=== PATIENT | male | born 1985 | race Caucasian/White ===

== ENCOUNTER 2019-02-09 19:47 | Emergency (ER) | payer SELFPAY ==
[~2019-02-09] VITALS: Ht 185.4 cm; Wt 170.1 kg
--- OUTSIDE RECORDS SUMMARY | 2019-02-09 19:59 | XMS REPORT ---
Author Author FARIHA BEJARANO [facility] Address [address] [place] [address] Care Team Providers Care Train Driver Name Role Phone FARHIA BEJARANO Unavailable PROBLEMS Unknown Problems ALLERGIES No Information SOCIAL HISTORY Never Assessed PLAN OF CARE VITAL SIGNS MEDICATIONS Medication Instructions Dosage Frequency Start Date End Date Duration Status Magic Mouthwash Apply medicated swab to sore areas of the mouth to numb the pain As needed Dip cotton swab into medication February, As needed Active RESULTS No Results PROCEDURES No Known procedures IMMUNIZATIONS No Known Immunizations MEDICAL (GENERAL) HISTORY Type Description Date Surgical History tonsillectomy and adnoids Hospitalization History Previous surgeries
--- OUTSIDE RECORDS SUMMARY | 2019-02-09 20:00 | XMS REPORT ---
Author [facility] Address [address] [place] [address] Care Team Providers Care Mohs Surgeon/General Dermatologist Name Role Phone FARIHA BEJARANO Unavailable PROBLEMS Unknown Problems ALLERGIES No Information SOCIAL HISTORY Never Assessed PLAN OF CARE VITAL SIGNS MEDICATIONS Unknown Medications RESULTS No Results PROCEDURES No Known procedures IMMUNIZATIONS No Known Immunizations MEDICAL (GENERAL) HISTORY Type Description Date Surgical History tonsillectomy and adnoids Hospitalization History Previous surgeries
--- NOTE | 2019-02-09 20:31 | Diagnostic Imaging Report ---
Examination: Right ankle, 3 views Indication: Right ankle pain after ankle injury. Comparison: None. Findings: No fracture or acute osseous abnormality. Bony alignment is maintained. Intact ankle mortise, including the medial and lateral clear space. No osteochondral lesion of the talar dome. No significant arthritic change. There is soft tissue swelling in the lateral ankle. Impression: No acute fracture or dislocation. Dictated by: Dictated on workstation # [id number]
--- NOTE | 2019-02-09 21:04 | ED Lower Extremity ---
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 He heard and felt a pop in his right ankle with the injury. He had immediate swelling and pain. He has not been able to walk on his right foot since the injury. He has had increasing pain and swelling since the injury. 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 He did not hit his head or lose consciousness. He denies any other injuries. He did not take anything for the pain prior to coming to the ED. He has not injured that ankle before. Allergies and Home Medications Allergies Coded Allergies: No Known Drug Allergies (Unverified , 02/09/19) Patient Home Medication List Home Medication List Reviewed: Yes Review of Systems Constitutional: no symptoms reported EENTM: no symptoms reported Respiratory: no symptoms reported Cardiovascular: no symptoms reported Gastrointestinal: no symptoms reported Genitourinary: no symptoms reported Musculoskeletal: see HPI Skin: see HPI Past Egzbnom-Lcbhox-Ljvzar Hx Past Med/Social Hx: Reviewed Nursing Past Med/Soc Hx Patient Social History Alcohol Use: Rarely Uses Recreational Drug Use: Yes Smoking Status: Current Everyday Smoker Type Used: Cigarettes 2nd Hand Smoke Exposure: No Recent Foreign Travel: No Contact w/Someone Who Travel: No Recent Infectious Disease Expo: No Recent Hopitalizations: No Physical Abuse: No Sexual Abuse: No Mistreated: No Fear: No Seasonal Allergies Seasonal Allergies: No Past Medical History Surgeries: Yes Tonsillectomy Respiratory: No Cardiac: No Neurological: No Genitourinary: No Gastrointestinal: No Musculoskeletal: No Endocrine: No HEENT: No Cancer: No Psychosocial: No Integumentary: No Blood Disorders: No Physical Exam Vital Signs Vital Signs - First Documented 02/09/19 02/09/19 20:11 21:29 Temp 99.6 Pulse 101 Resp 22 B/P (MAP) 101/ Pulse Ox 98 O2 Delivery Room Air O2 Flow Rate 210.00 Capillary Refill : Less Than 3 Seconds Height, Weight, BMI Height: 6'1.00" Weight: 375lbs. oz. 170.620736ah; BMI Method:Stated General Appearance: WD/WN, obese Cardiovascular: normal peripheral pulses, regular rate, rhythm Knees: right knee non-tender, right knee normal inspection, right knee normal range of motion, right knee no evidence of injury Ankles: right ankle limited range of motion, right ankle pain, right ankle soft tissue tenderness, right ankle swelling Neurologic/Tendon: normal sensation, normal motor functions, normal tendon functions Neurologic/Psychiatric: reimbursement spec II-XII nml as tested, no motor/sensory deficits, alert, oriented x 3 Skin: warm/dry, ecchymosis (swelling and bruising to right ankle and foot) Progress/Results/Core Measures Results/Orders My Orders Orders - NASIM MILLER MD Ankle 3 View Right (02/09/19 20:10) Ketorolac Injection (Toradol Injection) (02/09/19 21:15) Orthopedic Equiment (02/09/19 21:04) Medications Given in ED Current Medications Medications Dose Ordered Sig/Erika Route Start Time Stop Time Status Last Admin Dose Admin Ketorolac Tromethamine 60 mg ONCE ONCE IM 02/09/19 21:15 02/09/19 21:16 DC 02/09/19 21:11 60 MG Vital Signs/I&O 02/09/19 02/09/19 20:11 21:29 Temp 99.6 Pulse 101 90 Resp 22 20 B/P (MAP) 101/ 166/124 (138) Pulse Ox 98 O2 Delivery Room Air Room Air O2 Flow Rate 210.00 Progress Progress Note : Progress Note xray of right ankle does not show any acute fracture but has soft tissue swelling. Treat symptomatically and follow up with clinic. Pt refused pain medicine but was willing to take Toradol shot. He exceeded weight limit for crutches that were available here in the department so prescription was sent with pt. Diagnostic Imaging Diagonstic Imaging: Xray Plain Films/CT/US/NM/MRI: ankle Comments NAME: SAUMYA VALENTINE MED REC#: [id number] PT STATUS: DEP ER : 1985 PHYSICIAN: NASIM MILLER MD ADMIT DATE: 02/09/19/ER FS Signed Date of Exam:02/09/19 ANKLE 3 VIEW RIGHT Examination: Right ankle, 3 views Indication: Right ankle pain after ankle injury. Comparison: None. Findings: No fracture or acute osseous abnormality. Bony alignment is maintained. Intact ankle mortise, including the medial and lateral clear space. No osteochondral lesion of the talar dome. No significant arthritic change. There is soft tissue swelling in the lateral ankle. Impression: No acute fracture or dislocation. Dictated by: Dictated on workstation # [id number] Dict: 02/09/192028 Trans: 02/09/192356 [facility] [id number] Interpreted by: DAMIR FLORES DO Electronically signed by: DAMIR FLORES DO 02/09/197 Reviewed: Reviewed by Me (and radiology reading) Departure Impression Primary Impression: Pain in lateral portion of right ankle Additional Impression: Sprain of right ankle Qualified Codes: S93.401A - Sprain of unspecified ligament of right ankle, initial encounter Disposition: HOME, SELF-CARE Condition: Stable Departure-Patient Inst. Decision time for Depature: 21:16 Referrals: NO,LOCAL PHYSICIAN (PCP) Primary Care Physician Patient Instructions: Ankle Sprain (DC) Add. Discharge Instructions: Use carlota bandage and splint to give support and compression to your ankle. Ice and elevate to help with swelling and pain Take the Ibuprofen 800 mg every 8 hours to help with pain that you said you have at home. Use crutches to help with weight bearing as you tolerate. If not improving then follow up with clinic for recheck and you may need to see Orthopedics. All discharge instructions reviewed with patient and/or family. Voiced understanding. Scripts Crutch (Crutch) 1 Each Each EACH MC DAILY for ankle sprain, #1 0 Refills Use crutches for weight bearing as tolerated Prov: NASIM MILLER MD 02/09/19 NASIM MILLER MD Feb 09, 2019 21:04
[2019-02-09] MEDS ORDERED: KETOROLAC 60 MG/2 ML VIAL IM ONE (21:15)
[2019-02-09] MEDS ORDERED: CRUT1EAC7 MC (21:20)
[2019-02-09 21:29] VITALS: BP 166/124
== END 2019-02-09 21:25 | disposition home or self-care (01) ==
LOC: ER FS 19:48
DX: S93.401A Sprain of unspecified ligament of right ankle, initial encounter (principal); F17.210 Nicotine dependence, cigarettes, uncomplicated; Z90.89 Acquired absence of other organs; W10.8XXA Fall (on) (from) other stairs and steps, initial encounter; X50.1XXA Overexertion from prolonged static or awkward postures, initial encounter
CPT/HCPCS: 73610; 96372

== ENCOUNTER 2019-10-03 05:33 | Emergency (ER) | payer SELFPAY ==
[~2019-10-03] VITALS: Ht 182 cm; Wt 187.0 kg
[~2019-10-03 05:33] MED LIST: CRUT1EAC7 MC
[2019-10-03] MEDS ORDERED: ASPIRIN 81 MG CHEW (CHILDREN'S ASA) PO ONE (05:45)
[2019-10-03] MEDS ORDERED: FAMOTIDINE 20 MG (PEPCID) TABLET PO STA (05:58)
[2019-10-03] MEDS ORDERED: ANTACID SUSP 30 ML UDC (MYLANTA) PO ONE (06:00)
[2019-10-03] MEDS ORDERED: LIDOCAINE 2% VISCOUS 15 ML UDC PO ONE (06:00)
--- NOTE | 2019-10-03 06:10 | ED Chest Pain ---
General Stated Complaint: CHEST ARM PAIN Source: patient Exam Limitations: no limitations History of Present Illness Date Seen by Provider: Oct 03, 2019 Time Seen by Provider: 05:44 Initial Comments Patient presents to ER by private conveyance with chief complaint of left chest pain radiating up into his left shoulder and upper arm. He rates it as about a 4 -5 out of 10 at its worst. He says the pain comes and goes. It first started several years ago but he's never had it worked up. He states that this episode started around 1999 last night. He's been trying to get some sleep but it has kept him up. It is worse when he lays down as deep inspiration coughing or movement. It is better when he dropped a palpates it. He has not been doing anything strenuous lately. He has not taken anything for the pain. No history of coronary disease coughing levers but he doesn't miss some chills. No history of asthma, COPD or wheezing. He does not feel short of breath nauseated or have any sweats. No early-onset coronary disease in his family. He denies following up with a doctor or having any known medical history. He smokes cigarettes and marijuana regularly. Allergies and Home Medications Allergies Coded Allergies: No Known Drug Allergies (Unverified , 02/09/19) Patient Home Medication List Home Medication List Reviewed: Yes Review of Systems Review of Systems Constitutional: No chills, No diaphoresis EENTM: No Blurred Vision, No Double Vision Respiratory: Denies Cough, Denies Shortness of Air Cardiovascular: See HPI, Chest Pain; Denies Edema, Denies Irregular Heart Rate Musculoskeletal: No back pain, No joint pain Skin: No change in color, No dryness Psychiatric/Neurological: Denies Headache, Denies Numbness, Denies Paresthesia Past Xzbskim-Qsyozi-Xfjucc Hx Patient Social History Alcohol Use: Denies Use Recreational Drug Use: Yes Drug of Choice: MJ Smoking Status: Current Everyday Smoker Type Used: Cigarettes 2nd Hand Smoke Exposure: No Recent Foreign Travel: No Contact w/Someone Who Travel: No Recent Hopitalizations: No Seasonal Allergies Seasonal Allergies: No Past Medical History Surgeries: Yes Tonsillectomy Respiratory: No Cardiac: No Neurological: No Genitourinary: No Gastrointestinal: No Musculoskeletal: No Endocrine: No HEENT: No Cancer: No Psychosocial: No Integumentary: No Blood Disorders: No Physical Exam Vital Signs Vital Signs - First Documented 10/03/19 05:35 Temp 36.4 Pulse 87 Resp 18 B/P (MAP) 154/110 (125) Pulse Ox 97 O2 Delivery Room Air Capillary Refill : Height, Weight, BMI Height: 6'1.00" Weight: 375lbs. oz. 170.368833gy; BMI Method:Stated General Appearance: No Apparent Distress, Obese (morbidly) HEENT: PERRL/EOMI, Pharynx Normal, Moist Mucous Membranes Neck: Full Range of Motion, Normal Inspection Respiratory: No Accessory Muscle Use, No Respiratory Distress, Expiration, Wheezing (slight) Cardiovascular: Regular Rate, Rhythm, No Edema, No Gallop, No JVD, No Murmur, Normal Peripheral Pulses Extremity: Normal Capillary Refill, Normal Inspection, Normal Range of Motion, Non Tender, No Calf Tenderness Neurologic/Psychiatric: Alert, Oriented x3, No Motor/Sensory Deficits Skin: Normal Color, Warm/Dry Progress/Results/Core Measures Results/Orders Lab Results Laboratory Tests Test 10/03/19 06:17 Range/Units White Blood Count 12.3 H 4.3-11.0 10^3/uL Red Blood Count 5.65 4.35-5.85 10^6/uL Hemoglobin 17.2 13.3-17.7 G/DL Hematocrit 51 40-54 % Mean Corpuscular Volume 91 80-99 FL Mean Corpuscular Hemoglobin 30 25-34 PG Mean Corpuscular Hemoglobin Concent 34 32-36 G/DL Red Cell Distribution Width 12.9 10.0-14.5 % Platelet Count 183 130-400 10^3/uL Mean Platelet Volume 11.2 H 7.4-10.4 FL Neutrophils (%) (Auto) 41 L 42-75 % Lymphocytes (%) (Auto) 24 12-44 % Monocytes (%) (Auto) 5 0-12 % Eosinophils (%) (Auto) 30 H 0-10 % Basophils (%) (Auto) 1 0-10 % Neutrophils # (Auto) 5.0 1.8-7.8 X 10^3 Lymphocytes # (Auto) 2.9 1.0-4.0 X 10^3 Monocytes # (Auto) 0.6 0.0-1.0 X 10^3 Eosinophils # (Auto) 3.7 H 0.0-0.3 10^3/uL Basophils # (Auto) 0.1 0.0-0.1 10^3/uL Neutrophils % (Manual) 44 % Lymphocytes % (Manual) 12 % Eosinophils % (Manual) 37 % Reactive Lymphocytes 7 % Microcytosis SLIGHT Sodium Level 136 135-145 MMOL/L Potassium Level 4.0 3.6-5.0 MMOL/L Chloride Level 102 98-107 MMOL/L Carbon Dioxide Level 22 21-32 MMOL/L Anion Gap 12 5-14 MMOL/L Blood Urea Nitrogen 15 7-18 MG/DL Creatinine 0.82 0.60-1.30 MG/DL Estimat Glomerular Filtration Rate > 60 BUN/Creatinine Ratio 18 Glucose Level 117 H 70-105 MG/DL Calcium Level 9.2 8.5-10.1 MG/DL Corrected Calcium 9.0 8.5-10.1 MG/DL Total Bilirubin 0.5 0.1-1.0 MG/DL Aspartate Amino Transf (AST/SGOT) 18 5-34 U/L Alanine Aminotransferase (ALT/SGPT) 33 0-55 U/L Alkaline Phosphatase 64 40-136 U/L Troponin I < 0.30 <0.30 NG/ML Total Protein 6.9 6.4-8.2 GM/DL Albumin 4.2 3.2-4.5 GM/DL My Orders Orders - GIANCARLO WOLFE Lidocaine 2% Viscous 15 Ml (Xylocaine Vi (10/03/19 06:00) Famotidine Tablet (Pepcid Tablet) (10/03/19 05:58) Antacid Suspension (Mylanta Suspension (10/03/19 06:00) Albuterol Pre-Mix Nebs (Rt) (Proventil (10/03/19 06:38) Svn Small Volume Nebulizer (10/03/19 06:38) Medications Given in ED Current Medications Medications Dose Ordered Sig/Erika Route Start Time Stop Time Status Last Admin Dose Admin Al Hydrox/Mg Hydrox/Simethicone 30 ml ONCE ONCE PO 10/03/19 06:00 10/03/19 06:01 DC 10/03/19 06:16 30 ML Aspirin 324 mg ONCE ONCE PO 10/03/19 05:45 10/03/19 05:46 DC 10/03/19 06:15 324 MG Lidocaine HCl 15 ml ONCE ONCE PO 10/03/19 06:00 10/03/19 06:01 DC 10/03/19 06:16 15 ML Vital Signs/I&O 10/03/19 05:35 Temp 36.4 Pulse 87 Resp 18 B/P (MAP) 154/110 (125) Pulse Ox 97 O2 Delivery Room Air Progress Progress Note #1: Time: 06:12 Progress Note Assume care of the patient. Labs and EKG were ordered. Nursing staff had difficult time establishing an IV. At this time are not going to be using nitroglycerin and we will dispense with an IV. Plan is to give her a GI cocktail and if that does not help we'll try IM Toradol for what appears to be chronic, intermittent pain in his chest improved with direct palpation making it more likely musculoskeletal. Less likely myocarditis pericarditis or pulmonary. He has no wheezing, shortness of breath or cough however he does smoke. We could trial and albuterol nebulizer. He has no evidence of dysrhythmia on the monitor. If his labs look okay we will highly recommend he follow up with primary care for further management of his chronic problems. Counseled careful weight loss and exercise. Progress Note #2: Time: 06:38 Progress Note GI cocktail made no difference in his symptoms. He still has mild 2-3 out of 10 pain so since he has some wheezing we'll try albuterol. Progress Note #3: Time: 06:58 Progress Note Albuterol made his wheezing go away however did nothing for his discomfort. We'll give him some Toradol and instructions for management of costochondritis as well as follow-up with primary care doctor. Initial ECG Impression Date: Oct 03, 2019 Initial ECG Impression Time: 05:42 Initial ECG Rate: 94 Initial ECG Rhythm: Normal Sinus Initial ECG Intervals: Normal Initial ECG Impression: Normal, Nonspecific Changes Initial ECG Comparisson: No Previous ECG Available Comment Normal sinus rhythm without ST elevation or depression. Diagnostic Imaging Diagonstic Imaging: Xray Plain Films/CT/US/NM/MRI: chest (1v) Comments No acute cardiopulmonary processes on one view chest x-ray. No cardiomegaly. [facility] POS [place], [place] POS NAME: SAUMYA VALENTINE MED REC#: [id number] PT STATUS: REG ER : 1985 PHYSICIAN: AMANDA HUSIAN MD ADMIT DATE: 10/03/19/ER FS Draft POSDate of Exam:10/03/19 CHEST 1 VIEW AP/PA ONLY CLINICAL INDICATION: Patient with left arm and chest pain. EXAM: Portable chest x-ray upright view. COMPARISONS: None. FINDINGS: Lungs/pleura: Lungs are clear. There is no pneumothorax. There is no pleural effusion. Mediastinum: Unremarkable. Pulmonary vasculature: Unremarkable. Heart: Unremarkable. Bones/extrathoracic soft tissue: Unremarkable. IMPRESSION: There is no radiographic evidence of acute cardiopulmonary process. Dictated on workstation # [id number] Dict: 10/03/1945 Trans: 10/03/1949 [id number] Interpreted by: JIL HARPER MD Electronically signed by: Reviewed: Reviewed by Me Departure Impression Primary Impression: Costochondritis Disposition: 01 HOME, SELF-CARE Condition: Stable Departure-Patient Inst. Decision time for Depature: 06:59 Referrals: NO,LOCAL PHYSICIAN (PCP) Primary Care Physician Patient Instructions: Chest Pain That Is Not Caused by the Heart (DC), Costochondritis Add. Discharge Instructions: Please review the handouts and if you get some relief from the Toradol you can use Tylenol 1000 mg every 8 hours as well as ibuprofen 800 mg every 8 hours as needed for chest wall pain. Follow-up with a primary care doctor to discuss any further management or workup necessary over the next week or 2. If you have shortness of breath, worsening chest pain or other worrisome symptoms then please return to the nearest ER. GIANCARLO WOLFE Oct 03, 2019 06:10 POS
[2019-10-03 06:21] LABS: WHITE BLOOD COUNT 12.3 10^3/uL (4.3-11.0)
[2019-10-03 06:22] LABS: BASOPHILS # (AUTO) 0.1 10^3/uL (0.0-0.1); BASOPHILS % (AUTO) 1 % (0-10); EOSINOPHILS # (AUTO) 3.7 10^3/uL (0.0-0.3); EOSINOPHILS % (AUTO) 30 % (0-10); HEMATOCRIT 51 % (40-54); HEMOGLOBIN 17.2 G/DL (13.3-17.7); LYMPHOCYTES # (AUTO) 2.9 X 10^3 (1.0-4.0); LYMPHOCYTES % (AUTO) 24 % (12-44); MEAN CORPUSCULAR HEMOGLOBIN 30 PG (25-34); MEAN CORPUSCULAR HGB CONC 34 G/DL (32-36); MEAN CORPUSCULAR VOLUME 91 FL (80-99); MEAN PLATELET VOLUME 11.2 FL (7.4-10.4); MONOCYTES # (AUTO) 0.6 X 10^3 (0.0-1.0); MONOCYTES % (AUTO) 5 % (0-12); NEUTROPHILS % (AUTO) 41 % (42-75); PLATELET COUNT 183 10^3/uL (130-400); RED CELL DISTRIBUTION WIDTH 12.9 % (10.0-14.5)
[2019-10-03 06:36] LABS: EOSINOPHILS % (MANUAL) 37 %; LYMPHOCYTES % (MANUAL) 12 %; MICROCYTOSIS SLIGHT; NEUTROPHILS % (MANUAL) 44 %; REACTIVE LYMPHOCYTES 7 %
[2019-10-03] MEDS ORDERED: RT-ALBUTEROL SULF 2.5 MG/3 ML PRE-MIX VIAL INH STA (06:38)
[2019-10-03 06:42] LABS: BUN/CREATININE RATIO 18; CARBON DIOXIDE 22 MMOL/L (21-32); CHLORIDE 102 MMOL/L (98-107); CREATININE SERUM 0.82 MG/DL (0.60-1.30); GFR ESTIMATED > 60; SODIUM 136 MMOL/L (135-145)
[2019-10-03 06:43] LABS: ALANINE AMINOTRANSFERASE 33 U/L (0-55); ALBUMIN 4.2 GM/DL (3.2-4.5); ALKALINE PHOSPHATASE 64 U/L (40-136); BILIRUBIN,TOTAL 0.5 MG/DL (0.1-1.0); CALCIUM 9.2 MG/DL (8.5-10.1); GLUCOSE 117 MG/DL (70-105); TOTAL PROTEIN 6.9 GM/DL (6.4-8.2)
--- NOTE | 2019-10-03 06:50 | Diagnostic Imaging Report ---
CLINICAL INDICATION: Patient with left arm and chest pain. EXAM: Portable chest x-ray upright view. COMPARISONS: None. FINDINGS: Lungs/pleura: Lungs are clear. There is no pneumothorax. There is no pleural effusion. Mediastinum: Unremarkable. Pulmonary vasculature: Unremarkable. Heart: Unremarkable. Bones/extrathoracic soft tissue: Unremarkable. IMPRESSION: There is no radiographic evidence of acute cardiopulmonary process. Dictated by: Dictated on workstation # [id number]
[2019-10-03] MEDS ORDERED: KETOROLAC 60 MG/2 ML VIAL IM ONE (07:00)
[2019-10-03 07:04] VITALS: BP 148/73
== END 2019-10-03 07:08 | disposition home or self-care (01) ==
LOC: EDUNIT# 05:33 → ER FS 05:35
DX: M94.0 Chondrocostal junction syndrome [Tietze] (principal); F17.210 Nicotine dependence, cigarettes, uncomplicated; Z90.89 Acquired absence of other organs
CPT/HCPCS: 36415; 71045; 80053; 84484; 85007; 85027; 93005; 93041; 96372

== ENCOUNTER 2020-01-30 02:39 | Emergency (ER) | payer SELFPAY ==
[~2020-01-30] VITALS: Ht 180.3 cm; Wt 186.0 kg
[2020-01-30] MEDS ORDERED: NS IV 1000 ML 1,000 ML IV SCH (03:00)
--- NOTE | 2020-01-30 03:00 | ED Cardiac General ---
History of Present Illness General Chief Complaint: Chest Pain Stated Complaint: RAPID HEART RATE Source: patient, EMS Exam Limitations: no limitations History of Present Illness Date Seen by Provider: Jan 30, 2020 Time Seen by Provider: 02:55 Initial Comments Called EMS for feeling lightheaded and dizzy. Pt was awake watching YouTube and smoking weed just before this episode. On arrival, EMS stated that his BP was 150-160/ 90-100 w a HR of 110's. Pt had no EMS intervention en-route and on arrival was asymptomatic. Denies Hx of HTN, recent illness, fever or recent travel. Denies CP, cough or SOA. Denies abdominal pain, N/V/D. Admits to drinking tea and coffee last night, denies ETOH or other drug use. No other complaints or concerns. Allergies and Home Medications Allergies Coded Allergies: No Known Drug Allergies (Unverified , 02/09/19) Patient Home Medication List Home Medication List Reviewed: Yes Review of Systems Review of Systems Constitutional: see HPI EENTM: No Symptoms Reported Respiratory: No Symptoms Reported; Denies Cough, Denies Shortness of Air Cardiovascular: See HPI; Denies Chest Pain, Denies Edema, Denies Irregular Heart Rate; Lightheadedness, Palpitations Gastrointestinal: No Symptoms Reported Musculoskeletal: No back pain, No joint pain Skin: No change in color, No lesions, No rash Psychiatric/Neurological: Denies Anxiety, Denies Depressed, Denies Emotional Problems, Denies Headache, Denies Numbness, Denies Paresthesia, Denies Seizure, Denies Tremors, Denies Weakness Past Egaevvu-Wvzuqc-Qtqymb Hx Patient Social History Alcohol Use: Denies Use Recreational Drug Use: Yes Drug of Choice: MJ Smoking Status: Current Everyday Smoker Type Used: Cigarettes 2nd Hand Smoke Exposure: No Recent Foreign Travel: No Contact w/Someone Who Travel: No Recent Hopitalizations: No Physical Abuse: No Sexual Abuse: No Mistreated: No Fear: No Seasonal Allergies Seasonal Allergies: No Past Medical History Surgeries: Yes Tonsillectomy Respiratory: No Cardiac: No Neurological: No Genitourinary: No Gastrointestinal: No Musculoskeletal: No Endocrine: No HEENT: No Cancer: No Psychosocial: No Integumentary: No Blood Disorders: No Physical Exam Vital Signs Vital Signs - First Documented 01/30/20 02:52 Temp 36.2 Pulse 103 Resp 18 B/P (MAP) 155/101 (119) Pulse Ox 96 O2 Delivery Room Air Capillary Refill : Height, Weight, BMI Height: 6'1.00" Weight: 375lbs. oz. 170.055304hn; 56.00 BMI Method:Stated General Appearance: No Apparent Distress, WD/WN HEENT: PERRL/EOMI, Normal ENT Inspection Neck: Full Range of Motion, Normal Inspection Respiratory: Chest Non Tender, Lungs Clear, No Respiratory Distress Cardiovascular: Regular Rate, Rhythm, No Edema, No Gallop, No JVD, No Murmur Gastrointestinal: Non Tender, Soft; No Mass, No Rebound, No Tenderness Extremity: Normal Capillary Refill, Normal Inspection Neurologic/Psychiatric: Alert, Oriented x3, No Motor/Sensory Deficits, Normal Mood/Affect Skin: Normal Color, Warm/Dry Progress/Results/Core Measures Results/Orders Lab Results Laboratory Tests Test 01/30/20 03:08 Range/Units White Blood Count 14.4 H 4.3-11.0 10^3/uL Red Blood Count 5.63 4.35-5.85 10^6/uL Hemoglobin 17.0 13.3-17.7 G/DL Hematocrit 50 40-54 % Mean Corpuscular Volume 90 80-99 FL Mean Corpuscular Hemoglobin 30 25-34 PG Mean Corpuscular Hemoglobin Concent 34 32-36 G/DL Red Cell Distribution Width 13.7 10.0-14.5 % Platelet Count 206 130-400 10^3/uL Mean Platelet Volume 11.2 H 7.4-10.4 FL Neutrophils (%) (Auto) 40 L 42-75 % Lymphocytes (%) (Auto) 23 12-44 % Monocytes (%) (Auto) 4 0-12 % Eosinophils (%) (Auto) 33 H 0-10 % Basophils (%) (Auto) 1 0-10 % Neutrophils # (Auto) 5.7 1.8-7.8 X 10^3 Lymphocytes # (Auto) 3.3 1.0-4.0 X 10^3 Monocytes # (Auto) 0.6 0.0-1.0 X 10^3 Eosinophils # (Auto) 4.7 H 0.0-0.3 10^3/uL Basophils # (Auto) 0.1 0.0-0.1 10^3/uL Neutrophils % (Manual) 37 % Lymphocytes % (Manual) 30 % Monocytes % (Manual) 2 % Eosinophils % (Manual) 30 % Reactive Lymphocytes 1 % Sodium Level 137 135-145 MMOL/L Potassium Level 4.3 3.6-5.0 MMOL/L Chloride Level 102 98-107 MMOL/L Carbon Dioxide Level 21 21-32 MMOL/L Anion Gap 14 5-14 MMOL/L Blood Urea Nitrogen 19 H 7-18 MG/DL Creatinine 0.84 0.60-1.30 MG/DL Estimat Glomerular Filtration Rate > 60 BUN/Creatinine Ratio 23 Glucose Level 153 H 70-105 MG/DL Calcium Level 9.4 8.5-10.1 MG/DL Corrected Calcium 9.2 8.5-10.1 MG/DL Total Bilirubin 0.2 0.1-1.0 MG/DL Aspartate Amino Transf (AST/SGOT) 29 5-34 U/L Alanine Aminotransferase (ALT/SGPT) 26 0-55 U/L Alkaline Phosphatase 63 40-136 U/L Total Protein 7.3 6.4-8.2 GM/DL Albumin 4.2 3.2-4.5 GM/DL My Orders Orders - KASIE HARRIS DO Cbc With Automated Diff (01/30/20 02:53) Comprehensive Metabolic Panel (01/30/20 02:53) Ekg Tracing (01/30/20 02:53) Ed Iv/Invasive Line Start (01/30/20 02:53) Ns Iv 1000 Ml (Sodium Chloride 0.9%) (01/30/20 03:00) Manual Differential (01/30/20 03:08) Ondansetron Oral Dissolve Tab (Zofran (01/30/20 03:24) Metoprolol Tartrate (Ir) Tab (Lopressor (01/30/20 03:30) Medications Given in ED Current Medications Medications Dose Ordered Sig/Erika Route Start Time Stop Time Status Last Admin Dose Admin Metoprolol Tartrate 25 mg ONCE ONCE PO 01/30/20 03:30 01/30/20 03:31 DC 01/30/20 03:28 25 MG Vital Signs/I&O 01/30/20 02:52 Temp 36.2 Pulse 103 Resp 18 B/P (MAP) 155/101 (119) Pulse Ox 96 O2 Delivery Room Air Progress Progress Note : Progress Note stable, feeling better, no dizziness. Discussed using THC and it's effects as well as advised drinking more water, losing weight and seeing a PCP in < 1 wk regarding his BP and possible need to start medication. Initial ECG Impression Time: 02:55 Initial ECG Rhythm: S.Tach (105) Initial ECG Intervals: Normal Initial ECG Impression: Normal Departure Impression Primary Impression: Dizziness Additional Impression: Rapid palpitations Disposition: 01 HOME, SELF-CARE Condition: Improved Departure-Patient Inst. Referrals: NO,LOCAL PHYSICIAN (PCP) Primary Care Physician make an appointment for follow up care in 5 to 7 days [facility] Primary Care Physician Patient Instructions: Dizziness, Nonvertigo, (DC), Sinus Tachycardia (DC) KASIE HARRIS DO Jan 30, 2020 03:00
[2020-01-30 03:15] LABS: EOSINOPHILS % (AUTO) 33 % (0-10); HEMATOCRIT 50 % (40-54); LYMPHOCYTES % (AUTO) 23 % (12-44); MEAN CORPUSCULAR HEMOGLOBIN 30 PG (25-34); MEAN CORPUSCULAR HGB CONC 34 G/DL (32-36); MEAN CORPUSCULAR VOLUME 90 FL (80-99); MEAN PLATELET VOLUME 11.2 FL (7.4-10.4); MONOCYTES % (AUTO) 4 % (0-12); NEUTROPHILS % (AUTO) 40 % (42-75); PLATELET COUNT 206 10^3/uL (130-400); RED CELL DISTRIBUTION WIDTH 13.7 % (10.0-14.5); WHITE BLOOD COUNT 14.4 10^3/uL (4.3-11.0)
[2020-01-30 03:16] LABS: BASOPHILS # (AUTO) 0.1 10^3/uL (0.0-0.1); BASOPHILS % (AUTO) 1 % (0-10); EOSINOPHILS # (AUTO) 4.7 10^3/uL (0.0-0.3); LYMPHOCYTES # (AUTO) 3.3 X 10^3 (1.0-4.0); MONOCYTES # (AUTO) 0.6 X 10^3 (0.0-1.0); NEUTROPHILS # (AUTO) 5.7 X 10^3 (1.8-7.8)
[2020-01-30] MEDS ORDERED: ONDANSETRON 4 MG (ZOFRAN) ORAL DISSOLVE TAB PO STA (03:24)
[2020-01-30] MEDS ORDERED: meTOprolol TARTRATE 25 MG (LOPRESSOR) TABLET PO ONE (03:30)
[2020-01-30 03:34] LABS: ALANINE AMINOTRANSFERASE 26 U/L (0-55); ALBUMIN 4.2 GM/DL (3.2-4.5); ALKALINE PHOSPHATASE 63 U/L (40-136); BILIRUBIN,TOTAL 0.2 MG/DL (0.1-1.0); BUN/CREATININE RATIO 23; CALCIUM 9.4 MG/DL (8.5-10.1); CARBON DIOXIDE 21 MMOL/L (21-32); CHLORIDE 102 MMOL/L (98-107); CREATININE SERUM 0.84 MG/DL (0.60-1.30); GFR ESTIMATED > 60; GLUCOSE 153 MG/DL (70-105); POTASSIUM 4.3 MMOL/L (3.6-5.0); SODIUM 137 MMOL/L (135-145); TOTAL PROTEIN 7.3 GM/DL (6.4-8.2)
[2020-01-30 03:41] LABS: EOSINOPHILS % (MANUAL) 30 %; LYMPHOCYTES % (MANUAL) 30 %; MONOCYTES % (MANUAL) 2 %; NEUTROPHILS % (MANUAL) 37 %; REACTIVE LYMPHOCYTES 1 %
[2020-01-30 04:05] VITALS: BP 155/101
== END 2020-01-30 04:05 | disposition home or self-care (01) ==
LOC: EDUNIT# 02:39 → ER FS 02:47
DX: R42 Dizziness and giddiness (principal); R00.2 Palpitations; F12.90 Cannabis use, unspecified, uncomplicated; F17.210 Nicotine dependence, cigarettes, uncomplicated
CPT/HCPCS: 36415; 80053; 85007; 85027; 93005

== ENCOUNTER 2020-02-12 16:39 | Emergency (ER) | payer SELFPAY ==
[~2020-02-12] VITALS: Ht 182 cm; Wt 190.0 kg
--- OUTSIDE RECORDS SUMMARY | 2020-02-12 16:44 | XMS REPORT | Continuity of Care Document ---
Author Organization Unknown Address Unknown Phone Unavailable Allergies Active Description Code Type Severity Reaction Onset Reported/Identified Relationship to Patient Clinical Status Yes No Known Drug Allergies [id number] Drug Allergy Unknown N/A 02/09/2019 Medications There is no data. Problems Date Dx Coded Attending Type Code Diagnosis Diagnosed By 02/09/2019 NASIM MILLER MD, Ot F17.2 10 NICOTINE DEPENDENCE, CIGARETTES, UNCOMPL 02/09/2019 NASIM MILLER MD Ot M25.5 71 PAIN IN RIGHT ANKLE AND JOINTS OF RIGHT 02/09/2019 NASIM MILLER MD Ot S93.401A SPRAIN OF UNSPECIFIED LIGAMENT OF RIGHT 02/09/2019 NASIM MILLER MD Ot W10.8XXA FALL (ON) (FROM) OTHER STAIRS AND STEPS, 02/09/2019 NASIM MILLER MD Ot X50.1XXA OVEREXERTION FROM PROLONGED STATIC OR AW 02/09/2019 NASIM MILLER MD Ot Z90.8 9 ACQUIRED ABSENCE OF OTHER ORGANS 02/18/2019 NASIM MILLER MD Ot F17.2 10 NICOTINE DEPENDENCE, CIGARETTES, UNCOMPL 02/18/2019 NASIM MILLER MD Ot M25.5 71 PAIN IN RIGHT ANKLE AND JOINTS OF RIGHT 02/18/2019 NASIM MILLER MD Ot S93.401A SPRAIN OF UNSPECIFIED LIGAMENT OF RIGHT 02/18/2019 NASIM MILLER MD Ot W10.8XXA FALL (ON) (FROM) OTHER STAIRS AND STEPS, 02/18/2019 NASIM MILLER MD Ot X50.1XXA OVEREXERTION FROM PROLONGED STATIC OR AW 02/18/2019 NASIM MILLER MD Ot Z90.8 9 ACQUIRED ABSENCE OF OTHER ORGANS 10/06/2019 GIANCARLO WOLFE MD Ot F17.210 NICOTINE DEPENDENCE, CIGARETTES, UNCOMPL 10/06/2019 GIANCARLO WOLFE MD Ot 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 9 CHEST PAIN, UNSPECIFIED 10/06/2019 GIANCARLO WOLFE MD Ot Z90. 89 ACQUIRED ABSENCE OF OTHER ORGANS 02/02/2020 ROVENSTINE DO, KASIE L Ot F12.90 CANNABIS USE, UNSPECIFIED, UNCOMPLICATED 02/02/2020 ROVENSTINE DO, KASIE L Ot F17.210 NICOTINE DEPENDENCE, CIGARETTES, UNCOMPL 02/02/2020 ROVENSTINE DO, KASIE L Ot R00.2 PALPITATIONS 02/02/2020 ROVENSTINE DO, KASIE L Ot R42 DIZZINESS AND GIDDINESS Procedures There is no data. Results Test Result Range Complete blood count (CBC) with automate d white blood cell (WBC) differential - 10/03/19 06:17 Blood leukocytes automated count (number/volume) 12.3 10*3/uL 4.3-11.0 Blood erythrocytes automated count (number/volume) 5.65 10*6/uL 4.35-5.85 Venous blood hemoglobin measurement (mass/volume) 17.2 g/dL 13.3-17.7 Blood hematocrit (volume fraction) 51 % 40-54 Automated erythrocyte mean corpuscular volume 91 [ foz_us] 80-99 Automated erythrocyte mean corpuscular h emoglobin (mass per erythrocyte) 30 pg 25-34 Automated erythrocyte mean corpuscular h emoglobin concentration measurement (mass/volume) 34 g/dL 32-36 Automated erythrocyte distribution width ratio 12. 9 % 10.0- 14.5 Automated blood platelet count (count/volume) 183 10*3/uL 130-400 Automated blood platelet mean volume measurement 11.2 [foz_us] 7.4-10.4 Automated blood neutrophils/100 leukocytes 41 % 42-75 Automated blood lymphocytes/100 leukocytes 24 % 12-44 Blood monocytes/100 leukocytes 5 % 0-12 Automated blood eosinophils/100 leukocytes 30 % 0-10 Automated blood basophils/100 leukocytes 1 % 0-10 Blood neutrophils automated count (number/volume) 5.0 10*3 1.8-7.8 Blood lymphocytes automated count (number/volume) 2.9 10*3 1.0-4.0 Blood monocytes automated count (number/volume) 0. 6 10*3 0.0-1.0 Automated eosinophil count 3.7 10*3/uL 0 .0-0.3 Automated blood basophil count (count/volume) 0.1 10*3/uL 0.0-0.1 Manual absolute plasma cell count - 06/14 06:17 Manual blood segmented neutrophils/100 leukocytes 44 % NRG Manual blood lymphocytes/100 leukocytes 12 % NRG Manual eosinophils/100 leukocytes in nose 37 % NRG Blood lymphocytes variant/100 leukocytes 7 % NRG Blood microcytes detection by light microscopy [facility] NRG Comprehensive metabolic panel - 10/03/19 06:17 Serum or plasma sodium measurement (moles/volume) 136 mmol/L 135-145 Serum or plasma potassium measurement (moles/volume) 4.0 mmol/L 3.6-5.0 Serum or plasma chloride measurement (moles/volume) 102 mmol/L 98-107 Carbon dioxide 22 mmol/L 21-32 Serum or plasma anion gap determination (moles/volume) 12 mmol/L 5-14 Serum or plasma urea nitrogen measurement (mass/volume ) 15 mg/dL 7-18 Serum or plasma creatinine measurement (mass/volume) 0.82 mg/dL 0.60-1.30 Serum or plasma urea nitrogen/creatinine mass ratio 18 NRG Serum or plasma creatinine measurement w ith calculation of estimated glomerular filtration rate > NRG Serum or plasma glucose measurement (mass/volume) 117 mg/dL 70-105 Serum or plasma calcium measurement (mass/volume) 9.2 mg/dL 8.5-10.1 Serum or plasma total bilirubin measurement (mass/volu me) 0.5 mg/dL 0.1-1.0 Serum or plasma alkaline phosphatase elliot surement (enzymatic activity/volume) 64 U/L 40-136 Serum or plasma aspartate aminotransfera se measurement (enzymatic activity/volume) 18 U/L 5-34 Serum or plasma alanine aminotransferase measurement (enzymatic activity/volume) 33 U/L 0-55 Serum or plasma protein measurement (mass/volume) 6.9 g/dL 6.4-8.2 Serum or plasma albumin measurement (mass/volume) 4.2 g/dL 3.2-4.5 CALCIUM CORRECTED 9.0 mg/dL 8.5-10.1 TROPONIN I FS - 10/03/19 06:17 TROPONIN I FS < 0.30 <0.30 Complete blood count (CBC) with automate d white blood cell (WBC) differential - 01/30/20 03:08 Blood leukocytes automated count (number/volume) 14.4 10*3/uL 4.3-11.0 Blood erythrocytes automated count (number/volume) 5.63 10*6/uL 4.35-5.85 Venous blood hemoglobin measurement (mass/volume) 17.0 g/dL 13.3-17.7 Blood hematocrit (volume fraction) 50 % 40-54 Automated erythrocyte mean corpuscular volume 90 [ foz_us] 80-99 Automated erythrocyte mean corpuscular h emoglobin (mass per erythrocyte) 30 pg 25-34 Automated erythrocyte mean corpuscular h emoglobin concentration measurement (mass/volume) 34 g/dL 32-36 Automated erythrocyte distribution width ratio 13. 7 % 10.0- 14.5 Automated blood platelet count (count/volume) 206 10*3/uL 130-400 Automated blood platelet mean volume measurement 11.2 [foz_us] 7.4-10.4 Automated blood neutrophils/100 leukocytes 40 % 42-75 Automated blood lymphocytes/100 leukocytes 23 % 12-44 Blood monocytes/100 leukocytes 4 % 0-12 Automated blood eosinophils/100 leukocytes 33 % 0-10 Automated blood basophils/100 leukocytes 1 % 0-10 Blood neutrophils automated count (number/volume) 5.7 10*3 1.8-7.8 Blood lymphocytes automated count (number/volume) 3.3 10*3 1.0-4.0 Blood monocytes automated count (number/volume) 0. 6 10*3 0.0-1.0 Automated eosinophil count 4.7 10*3/uL 0 .0-0.3 Automated blood basophil count (count/volume) 0.1 10*3/uL 0.0-0.1 Comprehensive metabolic panel - 01/30/20 03:08 Serum or plasma sodium measurement (moles/volume) 137 mmol/L 135-145 Serum or plasma potassium measurement (moles/volume) 4.3 mmol/L 3.6-5.0 Serum or plasma chloride measurement (moles/volume) 102 mmol/L 98-107 Carbon dioxide 21 mmol/L 21-32 Serum or plasma anion gap determination (moles/volume) 14 mmol/L 5-14 Serum or plasma urea nitrogen measurement (mass/volume ) 19 mg/dL 7-18 Serum or plasma creatinine measurement (mass/volume) 0.84 mg/dL 0.60-1.30 Serum or plasma urea nitrogen/creatinine mass ratio 23 NRG Serum or plasma creatinine measurement w ith calculation of estimated glomerular filtration rate > NRG Serum or plasma glucose measurement (mass/volume) 153 mg/dL 70-105 Serum or plasma calcium measurement (mass/volume) 9.4 mg/dL 8.5-10.1 Serum or plasma total bilirubin measurement (mass/volu me) 0.2 mg/dL 0.1-1.0 Serum or plasma alkaline phosphatase elliot surement (enzymatic activity/volume) 63 U/L 40-136 Serum or plasma aspartate aminotransfera se measurement (enzymatic activity/volume) 29 U/L 5-34 Serum or plasma alanine aminotransferase measurement (enzymatic activity/volume) 26 U/L 0-55 Serum or plasma protein measurement (mass/volume) 7.3 g/dL 6.4-8.2 Serum or plasma albumin measurement (mass/volume) 4.2 g/dL 3.2-4.5 CALCIUM CORRECTED 9.2 mg/dL 8.5-10.1 Manual absolute plasma cell count - 04/0 03/15 03:08 Blood monocytes/100 leukocytes 2 % NRG Manual blood segmented neutrophils/100 leukocytes 37 % NRG Manual blood lymphocytes/100 leukocytes 30 % NRG Manual eosinophils/100 leukocytes in nose 30 % NRG Blood lymphocytes variant/100 leukocytes 1 % NRG Encounters ACCT No. Visit Date/Time Discharge Status Pt. Type Provider Facility Loc./Unit Complaint [id number] 01/30/2020 02:47:00 020 04:05:00 DIS Outpatient KASIE HARRIS DO [facility] ER FS RAPID HEART RAT E [id number] 10/03/2019 05:35:00 019 07:08:00 DIS Outpatient GIANCARLO WOLFE MD [facility] ER FS CHEST ARM PAIN [id number] 02/09/2019 19:48:00 019 21:25:00 DIS Emergency NASIM MILLER MD [facility] ER FS RT ANKLE INJ
--- NOTE | 2020-02-12 17:16 | ED General ---
General Chief Complaint: General Problems/Pain Stated Complaint: CHEST PAIN Nursing Triage Note: Patient states he was at home sitting on the couch when he suddenly started sweating profusely and his whole body went numb. States he had similar symptoms several weeks ago and was diagnosed with sinus infection. He took his blood pressure at home and it was 160 systolic Nursing Sepsis Screen: No Definite Risk Source of Information: Patient Exam Limitations: No Limitations History of Present Illness Date Seen by Provider: Feb 12, 2020 Time Seen by Provider: 17:00 Initial Comments Patient presents after an episode of feeling sweaty and numb. similar episode about a wk ago and seen in this ER (by me). Self monitoring his BP and pulse during episodes. Pulse usually > 100. Admits to smoking week, drinking caffeine and vaping. Denies life stressors or Hx anxiety. On arrival to ER feeling better. Denies CP or soa. Denies fever or recent illness neg C-19 RF's Allergies and Home Medications Allergies Coded Allergies: No Known Drug Allergies (Unverified , 02/09/19) Patient Home Medication List Home Medication List Reviewed: Yes Review of Systems Review of Systems Constitutional: No chills, No diaphoresis; dizziness; No fever; malaise; No weakness EENTM: no symptoms reported Respiratory: No cough, No dyspnea on exertion Cardiovascular: No chest pain; palpitations; No syncope Gastrointestinal: No abdominal pain, No loss of appetite; nausea; No vomiting Musculoskeletal: No back pain, No joint pain Skin: No pruritus, No rash Psychiatric/Neurological: See HPI; Denies Depressed, Denies Emotional Problems; Numbness, Paresthesia Past Mmzhawq-Wyhubd-[place]ew[place]o Hx Past Med/Social Hx: Reviewed Nursing Past Med/Soc Hx Patient Social History Alcohol Use: Denies Use Recreational Drug Use: Yes Drug of Choice: Marijuana- last used 3 days ago Smoking Status: Current Everyday Smoker Type Used: Cigarettes 2nd Hand Smoke Exposure: No Recent Foreign Travel: No Contact w/Someone Who Travel: No Recent Infectious Disease Expo: No Recent Hopitalizations: No Seasonal Allergies Seasonal Allergies: No Past Medical History Surgeries: Yes Tonsillectomy Respiratory: No Cardiac: Yes Hypertension Neurological: No Genitourinary: No Gastrointestinal: No Musculoskeletal: No Endocrine: No HEENT: No Cancer: No Psychosocial: Yes Anxiety Integumentary: No Blood Disorders: No Physical Exam Vital Signs Vital Signs - First Documented 02/12/20 17:01 Temp 36.3 Pulse 111 Resp 18 B/P (MAP) 163/99 (120) Pulse Ox 96 Capillary Refill : Less Than 3 Seconds Height, Weight, BMI Height: 6'1.00" Weight: 375lbs. oz. 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 Norm as Tested Skin: Normal Color, Warm/Dry Progress/Results/Core Measures Suspected Sepsis Recent Fever Within 48 Hours: No Infection Criteria Present: None New/Unexplained Altered Menta: No Sepsis Screen: No Definite Risk SIRS Temperature: Pulse: 111 Respiratory Rate: 18 Laboratory Tests 02/12/20 17:29: Blood Pressure 163 /99 Mean: 120 Laboratory Tests 02/12/20 17:29: Results/Orders Lab Results Laboratory Tests Test 02/12/20 16:52 02/12/20 17:29 Range/Units Glucometer 99 70-110 MG/DL My Orders Orders - KASIE HARRIS DO Cbc With Automated Diff (02/12/20 17:11) Comprehensive Metabolic Panel (02/12/20 17:11) Ekg Tracing (02/12/20 17:11) Vital Signs/I&O 02/12/20 17:01 Temp 36.3 Pulse 111 Resp 18 B/P (MAP) 163/99 (120) Pulse Ox 96 Capillary Refill : Less Than 3 Seconds Blood Pressure Mean: 120 ECG Initial ECG Impression Date: Feb 12, 2020 Initial ECG Impression Time: 17:25 Initial ECG Rhythm: Normal Sinus Initial ECG Intervals: Normal Initial ECG Impression: Normal Initial ECG Comparisson: No Previous ECG Available Departure Impression Primary Impression: Anxiety Disposition: 01 HOME, SELF-CARE Condition: Stable Departure-Patient Inst. Decision time for Depature: 17:45 Referrals: NO,LOCAL PHYSICIAN (PCP/Family) Primary Care Physician Patient Instructions: Anxiety, Adult (DC) Add. Discharge Instructions: Call your Doctor on Friday to schedule a follow-up appointment regarding your anxiety attacks. You have been advised to avoid / cut down on your use of caffeine and nicotine in any form. The merits of living"drug free" are strongly encouraged. All discharge instructions reviewed with patient and/or family. Voiced understanding. KASIE HARRIS DO Feb 12, 2020 17:16
[2020-02-12 17:50] LABS: BASOPHILS # (AUTO) 0.1 10^3/uL (0.0-0.1); BASOPHILS % (AUTO) 1 % (0-10); EOSINOPHILS # (AUTO) 0.6 10^3/uL (0.0-0.3); EOSINOPHILS % (AUTO) 7 % (0-10); HEMATOCRIT 51 % (40-54); HEMOGLOBIN 17.2 G/DL (13.3-17.7); LYMPHOCYTES # (AUTO) 1.9 X 10^3 (1.0-4.0); LYMPHOCYTES % (AUTO) 21 % (12-44); MEAN CORPUSCULAR HEMOGLOBIN 30 PG (25-34); MEAN CORPUSCULAR HGB CONC 34 G/DL (32-36); MEAN CORPUSCULAR VOLUME 91 FL (80-99); MEAN PLATELET VOLUME 11.1 FL (7.4-10.4); MONOCYTES # (AUTO) 0.6 X 10^3 (0.0-1.0); MONOCYTES % (AUTO) 6 % (0-12); NEUTROPHILS # (AUTO) 5.9 X 10^3 (1.8-7.8); NEUTROPHILS % (AUTO) 65 % (42-75); PLATELET COUNT 214 10^3/uL (130-400); RED CELL DISTRIBUTION WIDTH 13.2 % (10.0-14.5); WHITE BLOOD COUNT 9.1 10^3/uL (4.3-11.0)
[2020-02-12 17:51] LABS: ALANINE AMINOTRANSFERASE 31 U/L (0-55); ALBUMIN 4.3 GM/DL (3.2-4.5); ALKALINE PHOSPHATASE 57 U/L (40-136); BILIRUBIN,TOTAL 0.4 MG/DL (0.1-1.0); BUN/CREATININE RATIO 30; CALCIUM 9.2 MG/DL (8.5-10.1); CARBON DIOXIDE 22 MMOL/L (21-32); CHLORIDE 103 MMOL/L (98-107); CREATININE SERUM 0.76 MG/DL (0.60-1.30); GFR ESTIMATED > 60; GLUCOSE 123 MG/DL (70-105); POTASSIUM 3.8 MMOL/L (3.6-5.0); SODIUM 138 MMOL/L (135-145); TOTAL PROTEIN 6.9 GM/DL (6.4-8.2)
[2020-02-12 18:02] VITALS: BP 151/90
== END 2020-02-12 18:02 | disposition home or self-care (01) ==
LOC: EDUNIT# 16:39 → ER FS 16:40
DX: F41.9 Anxiety disorder, unspecified (principal); F17.210 Nicotine dependence, cigarettes, uncomplicated
CPT/HCPCS: 36415; 80053; 82962; 85025; 93005

== ENCOUNTER 2020-02-19 08:23 | Emergency (ER) | payer SELFPAY ==
[~2020-02-19] VITALS: Ht 182 cm; Wt 179.0 kg
--- OUTSIDE RECORDS SUMMARY | 2020-02-19 08:27 | XMS REPORT | Continuity of Care Document ---
Author Organization Unknown Address Unknown Phone Unavailable Allergies Active Description Code Type Severity Reaction Onset Reported/Identified Relationship to Patient Clinical Status Yes No Known Drug Allergies [id number] Drug Allergy Unknown N/A 02/09/2019 Medications There [...] Ot R07. 9 CHEST PAIN, UNSPECIFIED 10/06/2019 YANETH YEUNG, GIANCARLO Desouza Ot Z90. 89 ACQUIRED ABSENCE OF OTHER ORGANS 02/02/2020 ROVENSTINE DO, KASIE L Ot F12.90 CANNABIS USE, UNSPECIFIED, UNCOMPLICATED 02/02/2020 ROVENSTINE DO, KASIE L Ot F17.210 NICOTINE DEPENDENCE, CIGARETTES, UNCOMPL 02/02/2020 ROVENSTINE DO, KASIE L Ot R00.2 PALPITATIONS 02/02/2020 ROVENSTINE DO, KASIE L Ot R42 DIZZINESS AND GIDDINESS 02/15/2020 ROVENSTINE DO, KASIE L Ot F17.210 NICOTINE DEPENDENCE, CIGARETTES, UNCOMPL 02/15/2020 ROVENSTINE DO, KASIE L Ot F41.9 ANXIETY DISORDER, UNSPECIFIED 02/15/2020 ROVENSTINE DO, KASIE L Ot R07.9 CHEST PAIN, UNSPECIFIED Procedures There is no data. Results Test [...] NRG Blood microcytes detection by light microscopy [facility] Comprehensive metabolic panel - 10/03/19 06:17 Serum [...] 8.5-10.1 Manual absolute plasma cell count - 03/15 03:08 Blood monocytes/100 leukocytes 2 % NRG Manual blood segmented neutrophils/100 leukocytes 37 % NRG Manual blood lymphocytes/100 leukocytes 30 % NRG Manual eosinophils/100 leukocytes in nose 30 % NRG Blood lymphocytes variant/100 leukocytes 1 % NRG Capillary blood glucose measurement by g lucometer (mass/volume) - 02/12/20 16:52 Capillary blood glucose measurement by glucometer (mas s/volume) 99 mg/dL 70-110 Complete blood count (CBC) with automate d white blood cell (WBC) differential - 02/12/20 17:29 Blood leukocytes automated count (number/volume) 9.1 10*3/uL 4.3-11.0 Blood erythrocytes automated count (number/volume) 5.68 10*6/uL 4.35-5.85 Venous blood hemoglobin measurement (mass/volume) 17.2 g/dL 13.3-17.7 Blood hematocrit (volume fraction) 51 % 40-54 Automated erythrocyte mean corpuscular volume 91 [ foz_us] 80-99 Automated erythrocyte mean corpuscular h emoglobin (mass per erythrocyte) 30 pg 25-34 Automated erythrocyte mean corpuscular h emoglobin concentration measurement (mass/volume) 34 g/dL 32-36 Automated erythrocyte distribution width ratio 13. 2 % 10.0- 14.5 Automated blood platelet count (count/volume) 214 10*3/uL 130-400 Automated blood platelet mean volume measurement 11.1 [foz_us] 7.4-10.4 Automated blood neutrophils/100 leukocytes 65 % 42-75 Automated blood lymphocytes/100 leukocytes 21 % 12-44 Blood monocytes/100 leukocytes 6 % 0-12 Automated blood eosinophils/100 leukocytes 7 % 0-10 Automated blood basophils/100 leukocytes 1 % 0-10 Blood neutrophils automated count (number/volume) 5.9 10*3 1.8-7.8 Blood lymphocytes automated count (number/volume) 1.9 10*3 1.0-4.0 Blood monocytes automated count (number/volume) 0. 6 10*3 0.0-1.0 Automated eosinophil count 0.6 10*3/uL 0 .0-0.3 Automated blood basophil count (count/volume) 0.1 10*3/uL 0.0-0.1 Comprehensive metabolic panel - 02/12/20 17:29 Serum or plasma sodium measurement (moles/volume) 138 mmol/L 135-145 Serum or plasma potassium measurement (moles/volume) 3.8 mmol/L 3.6-5.0 Serum or plasma chloride measurement (moles/volume) 103 mmol/L 98-107 Carbon dioxide 22 mmol/L 21-32 Serum or plasma anion gap determination (moles/volume) 13 mmol/L 5-14 Serum or plasma urea nitrogen measurement (mass/volume ) 23 mg/dL 7-18 Serum or plasma creatinine measurement (mass/volume) 0.76 mg/dL 0.60-1.30 Serum or plasma urea nitrogen/creatinine mass ratio 30 NRG Serum or plasma creatinine measurement w ith calculation of estimated glomerular filtration rate > NRG Serum or plasma glucose measurement (mass/volume) 123 mg/dL 70-105 Serum or plasma calcium measurement (mass/volume) 9.2 mg/dL 8.5-10.1 Serum or plasma total bilirubin measurement (mass/volu me) 0.4 mg/dL 0.1-1.0 Serum or plasma alkaline phosphatase elliot surement (enzymatic activity/volume) 57 U/L 40-136 Serum or plasma aspartate aminotransfera se measurement (enzymatic activity/volume) 15 U/L 5-34 Serum or plasma alanine aminotransferase measurement (enzymatic activity/volume) 31 U/L 0-55 Serum or plasma protein measurement (mass/volume) 6.9 g/dL 6.4-8.2 Serum or plasma albumin measurement (mass/volume) 4.3 g/dL 3.2-4.5 CALCIUM CORRECTED 9.0 mg/dL 8.5-10.1 Encounters ACCT No. Visit Date/Time Discharge Status Pt. Type Provider Facility Loc./Unit Complaint [id number] 02/12/2020 16:40:00 020 18:02:00 DIS Outpatient KASIE HARRIS DO [facility] ER FS CHEST PAIN [id number] 01/30/2020 02:47:00 020 04:05:00 DIS Outpatient KASIE HARRIS DO [facility] ER FS RAPID HEART RAT E [id number] 10/03/2019 05:35:00 019 07:08:00 DIS Outpatient GIANCARLO WOLFE MD [facility] ER FS CHEST ARM PAIN [id number] 02/09/2019 19:48:00 019 21:25:00 DIS Emergency NASIM MILLER MD [facility] ER FS RT ANKLE INJ
[2020-02-19] MEDS ORDERED: hydrOXYzine (VISTARIL/ATARAX) 25 MG capsule/tablet PO ONE (09:00)
[2020-02-19 09:12] LABS: HEMATOCRIT 52 % (40-54); HEMOGLOBIN 17.6 G/DL (13.3-17.7); LYMPHOCYTES % (AUTO) 23 % (12-44); MEAN CORPUSCULAR HEMOGLOBIN 30 PG (25-34); MEAN CORPUSCULAR HGB CONC 34 G/DL (32-36); MEAN CORPUSCULAR VOLUME 89 FL (80-99); MEAN PLATELET VOLUME 11.1 FL (7.4-10.4); MONOCYTES % (AUTO) 7 % (0-12); NEUTROPHILS % (AUTO) 63 % (42-75); PLATELET COUNT 205 10^3/uL (130-400); RED CELL DISTRIBUTION WIDTH 12.9 % (10.0-14.5)
[2020-02-19 09:13] LABS: BASOPHILS # (AUTO) 0.1 10^3/uL (0.0-0.1); BASOPHILS % (AUTO) 1 % (0-10); EOSINOPHILS # (AUTO) 0.7 10^3/uL (0.0-0.3); EOSINOPHILS % (AUTO) 6 % (0-10); LYMPHOCYTES # (AUTO) 2.7 X 10^3 (1.0-4.0); MONOCYTES # (AUTO) 0.8 X 10^3 (0.0-1.0); NEUTROPHILS # (AUTO) 7.6 X 10^3 (1.8-7.8)
--- NOTE | 2020-02-19 09:13 | ED Cardiac General ---
History of Present Illness General Chief Complaint: Chest Pain Stated Complaint: CHEST PAIN Nursing Triage Note: PT WOKE UP WITH HEART RACING AND CHEST PAIN WITH SWEATING. JUST STARTED ON CELEXA 2 WEEKS AGO FOR ANXIETY AND DEPRESSION. Source: patient Exam Limitations: no limitations History of Present Illness Date Seen by Provider: Feb 19, 2020 Time Seen by Provider: 08:45 Initial Comments Patient is a 34-year-old complains of intermittent left pectoral chest pain with feeling of his heart stopping associated with intense sweating and near syncopal feeling. He states he has had these symptoms on and off for a extended period of time has had some evaluations in the emergency department his primary care provider felt these were anxiety panic disorders started the patient on Celexa recently which he has had no change in his symptomatology. He's had no suicidal or homicidal ideations at this had no syncope normal bowel movements. Timing/Duration: intermittent Severity: moderate Location: shoulder Activities at Onset: emotional stress Prior CP/Workup: non-cardiac Modifying Factors: improves with breathing, improves with lying down NTG SL DIRECTORY COMPILER: No Associated Systoms: Chest Pain; No Cough; Diaphoresis, Nausea/Vomiting, Weakness Allergies and Home Medications Allergies Coded Allergies: No Known Drug Allergies (Unverified , 02/09/19) Home Medications Hydroxyzine Pamoate 50 Mg Capsule, 50 MG PO Q6H PRN for AGITATION Prescribed by: ABRAHAM BARBER on 02/19/20 1034 Lisinopril/Hydrochlorothiazide 1 Each Tablet, 1 EACH PO DAILY Prescribed by: ABRAHAM BARBER on 02/19/20 1034 Patient Home Medication List Home Medication List Reviewed: Yes Review of Systems Review of Systems Constitutional: dizziness, weakness EENTM: No Symptoms Reported Respiratory: SOA at Rest Cardiovascular: See HPI Gastrointestinal: No Symptoms Reported Genitourinary: No Symptoms Reported Musculoskeletal: no symptoms reported Skin: no symptoms reported Psychiatric/Neurological: See HPI, Anxiety Endocrine: No Symptoms Reported Hematologic/Lymphatic: No Symptoms Reported Past Nxoafct-Phrbfb-Rqsxdj Hx Patient Social History Alcohol Use: Denies Use Recreational Drug Use: Yes Drug of Choice: Marijuana Type Used: Cigarettes 2nd Hand Smoke Exposure: No Recent Foreign Travel: No Contact w/Someone Who Travel: No Recent Infectious Disease Expo: No Recent Hopitalizations: No Physical Abuse: No Sexual Abuse: No Mistreated: No Fear: No Seasonal Allergies Seasonal Allergies: No Past Medical History Surgeries: Yes Tonsillectomy Respiratory: No Cardiac: Yes Hypertension Neurological: No Genitourinary: No Gastrointestinal: No Musculoskeletal: No Endocrine: No HEENT: No Cancer: No Psychosocial: Yes Anxiety Integumentary: No Blood Disorders: No Physical Exam Vital Signs Vital Signs - First Documented 02/19/20 08:38 Temp 36.2 Pulse 84 Resp 16 B/P (MAP) 154/111 (125) Pulse Ox 99 O2 Delivery Room Air Capillary Refill : Less Than 3 Seconds Height, Weight, BMI Height: 6'1.00" Weight: 375lbs. oz. [id number]; 54.00 BMI Method:Stated General Appearance: No Apparent Distress, Anxious HEENT: PERRL/EOMI, Normal ENT Inspection, Moist Mucous Membranes Neck: Full Range of Motion, Normal Inspection, Non Tender, Supple Respiratory: Chest Non Tender, Lungs Clear, Normal Breath Sounds, No Respiratory Distress Cardiovascular: Regular Rate, Rhythm, No Edema Gastrointestinal: Normal Bowel Sounds, Non Tender Extremity: Normal Capillary Refill, Normal Inspection, Normal Range of Motion, No Calf Tenderness Neurologic/Psychiatric: Alert Skin: Normal Color, Warm/Dry Lymphatic: No Adenopathy Progress/Results/Core Measures Results/Orders Lab Results Laboratory Tests Test 02/19/20 09:04 02/19/20 09:45 Range/Units White Blood Count 12.0 H 4.3-11.0 10^3/uL Red Blood Count 5.84 4.35-5.85 10^6/uL Hemoglobin 17.6 13.3-17.7 G/DL Hematocrit 52 40-54 % Mean Corpuscular Volume 89 80-99 FL Mean Corpuscular Hemoglobin 30 25-34 PG Mean Corpuscular Hemoglobin Concent 34 32-36 G/DL Red Cell Distribution Width 12.9 10.0-14.5 % Platelet Count 205 130-400 10^3/uL Mean Platelet Volume 11.1 H 7.4-10.4 FL Neutrophils (%) (Auto) 63 42-75 % Lymphocytes (%) (Auto) 23 12-44 % Monocytes (%) (Auto) 7 0-12 % Eosinophils (%) (Auto) 6 0-10 % Basophils (%) (Auto) 1 0-10 % Neutrophils # (Auto) 7.6 1.8-7.8 X 10^3 Lymphocytes # (Auto) 2.7 1.0-4.0 X 10^3 Monocytes # (Auto) 0.8 0.0-1.0 X 10^3 Eosinophils # (Auto) 0.7 H 0.0-0.3 10^3/uL Basophils # (Auto) 0.1 0.0-0.1 10^3/uL Erythrocyte Sedimentation Rate 2 0-15 MM/HR Sodium Level 137 135-145 MMOL/L Potassium Level 4.2 3.6-5.0 MMOL/L Chloride Level 100 98-107 MMOL/L Carbon Dioxide Level 21 21-32 MMOL/L Anion Gap 16 H 5-14 MMOL/L Blood Urea Nitrogen 17 7-18 MG/DL Creatinine 0.76 0.60-1.30 MG/DL Estimat Glomerular Filtration Rate > 60 BUN/Creatinine Ratio 22 Glucose Level 117 H 70-105 MG/DL Calcium Level 9.3 8.5-10.1 MG/DL Corrected Calcium 9.0 8.5-10.1 MG/DL Magnesium Level 2.0 1.6-2.4 MG/DL Total Bilirubin 0.3 0.1-1.0 MG/DL Aspartate Amino Transf (AST/SGOT) 19 5-34 U/L Alanine Aminotransferase (ALT/SGPT) 38 0-55 U/L Alkaline Phosphatase 62 40-136 U/L Troponin I < 0.30 <0.30 NG/ML Total Protein 6.9 6.4-8.2 GM/DL Albumin 4.4 3.2-4.5 GM/DL My Orders Orders - ABRAHAM BARBER DO Cbc With Automated Diff (02/19/20 08:54) Magnesium (02/19/20 08:54) Ekg Tracing (02/19/20 08:54) Comprehensive Metabolic Panel (02/19/20 08:54) Monitor-Rhythm Ecg Trace Only (02/19/20 08:54) Troponin I Fs (02/19/20 08:54) Hydroxyzine Cap/Tab (Vistaril) (02/19/20 09:00) Erythrocyte Sedimentation Rate (02/19/20 08:57) Chest 1 View Ap/Pa Only (02/19/20 08:57) Medications Given in ED Current Medications Medications Dose Ordered Sig/Erika Route Start Time Stop Time Status Last Admin Dose Admin Hydroxyzine Pamoate 25 mg ONCE ONCE PO 02/19/20 09:00 02/19/20 09:01 DC 02/19/20 09:17 25 MG Vital Signs/I&O 02/19/20 02/19/20 02/19/20 02/19/20 08:38 09:09 10:22 10:41 Temp 36.2 36.2 Pulse 84 72 84 Resp 16 18 18 B/P (MAP) 154/111 (125) 154/92 (112) 152/98 Pulse Ox 99 99 97 O2 Delivery Room Air Room Air Room Air Blood Pressure Mean: 125 Progress Progress Note : Time: 09:11 Progress Note Patient is a 34-year-old obese smoker apparently untreated hypertension family history positive for diabetes coronary disease presents with recurrent chest pain is evaluated with unremarkable EKG is no evidence of a serial troponins sedimentation rates or other causes for his pain in the old medical record. He was recently started on Celexa is not homicidal or suicidal I suspect that this most likely is a panic anxiety disorder but has not had a recent chest x-ray or rub renal labs ordered cardiac enzymes so will evaluate these follow the patient's blood pressure make specific recommendations based on serial blood pressures treat his anxiety with Atarax reevaluate the patient probably discharged home. Initial ECG Impression Date: Feb 19, 2020 Initial ECG Impression Time: 09:13 Initial ECG Rate: 83 Initial ECG Rhythm: Normal Sinus Initial ECG Impression: Normal Departure Impression Primary Impression: Chest pain Qualified Codes: R07.89 - Other chest pain Additional Impressions: Severe anxiety with panic Hypertension Disposition: 01 HOME, SELF-CARE Condition: Improved Departure-Patient Inst. Referrals: NO,LOCAL PHYSICIAN (PCP/Family) Primary Care Physician Patient Instructions: Chest Pain That Is Not Caused by the Heart (DC), High Blood Pressure in Adults, Anxiety, Adult (DC) Scripts Hydroxyzine Pamoate (Vistaril) 50 Mg Capsule 50 MG PO Q6H PRN for AGITATION for 10 Days, #20 CAP 0 Refills Prov: ABRAHAM BARBER DO 02/19/20 Lisinopril/Hydrochlorothiazide (Lisinopril-Hctz 10-12.5 mg Tab) 1 Each Tablet 1 EACH PO DAILY for Blood Pressure for 30 Days, #30 TAB Prov: ABRAHAM BARBER DO 02/19/20 ABRAHAM BARBER DO Feb 19, 2020 09:13
--- NOTE | 2020-02-19 09:15 | Diagnostic Imaging Report ---
EXAM: CHEST 1 VIEW AP/PA ONLY INDICATION: Chest pain. Tachycardia. Palpitations. COMPARISON: 10/03/2019. FINDINGS: Normal heart size and central pulmonary vascularity. Calcified granulomas. No new focal pulmonary opacity, pleural effusion or pneumothorax. No acute osseous findings. No significant change. IMPRESSION: No acute cardiopulmonary findings. Dictated by: Dictated on workstation # [id number]
[2020-02-19 10:18] LABS: ALANINE AMINOTRANSFERASE 38 U/L (0-55); ALKALINE PHOSPHATASE 62 U/L (40-136); BILIRUBIN,TOTAL 0.3 MG/DL (0.1-1.0); BUN/CREATININE RATIO 22; CALCIUM 9.3 MG/DL (8.5-10.1); CARBON DIOXIDE 21 MMOL/L (21-32); CHLORIDE 100 MMOL/L (98-107); CREATININE SERUM 0.76 MG/DL (0.60-1.30); GFR ESTIMATED > 60; GLUCOSE 117 MG/DL (70-105); POTASSIUM 4.2 MMOL/L (3.6-5.0); SODIUM 137 MMOL/L (135-145); TOTAL PROTEIN 6.9 GM/DL (6.4-8.2)
[2020-02-19 10:19] LABS: ALBUMIN 4.4 GM/DL (3.2-4.5)
[2020-02-19 10:22] VITALS: BP 154/92
[2020-02-19] MEDS ORDERED: LISI1TAB29 PO (10:34)
[2020-02-19] MEDS ORDERED: HYDR50CA PO (10:34)
[2020-02-19 10:41] VITALS: BP 152/98
== END 2020-02-19 10:45 | disposition home or self-care (01) ==
LOC: EDUNIT# 08:23 → ER FS 08:24
DX: F41.0 Panic disorder [episodic paroxysmal anxiety] (principal); I10 Essential (primary) hypertension; F32.9 Major depressive disorder, single episode, unspecified
CPT/HCPCS: 36415; 71045; 80053; 83735; 84484; 85025; 85652; 93005; 93041

== ENCOUNTER 2021-02-16 20:35 | Emergency (ER) | payer SELFPAY ==
[~2021-02-16] VITALS: Ht 182.8 cm; Wt 183.2 kg
[~2021-02-16 20:35] MED LIST changes: +HYDR50CA PO; +LISI1TAB29 PO
--- NOTE | 2021-02-16 20:38 | ED Cardiac General ---
History of Present Illness General Stated Complaint: CHEST PAIN Source: patient Exam Limitations: no limitations History of Present Illness Date Seen by Provider: Feb 16, 2021 Time Seen by Provider: 20:38 Initial Comments 35-year-old male presents with heart palpitations and rapid heart rate starting 1 hour prior to arrival. History of anxiety with similar palpitations in the past. States that it happens occasionally with no known cause. Denies chest pain or shortness of air, fever chills or recent illness. Admits to smoking marijuana daily, smokes cigarettes, drinks caffeine. Allergies and Home Medications Allergies Coded Allergies: amoxicillin (Verified Allergy, Unknown, 02/16/21) Home Medications Hydroxyzine Pamoate 50 Mg Capsule, 50 MG PO Q6H PRN for AGITATION Prescribed by: ABRAHAM BARBER on 02/19/20 1034 Lisinopril/Hydrochlorothiazide 1 Each Tablet, 1 EACH PO DAILY Prescribed by: ABRAHAM BARBER on 02/19/20 1034 Metoprolol Succinate 50 Mg Tab.er.24h, 50 MG PO DAILY Prescribed by: KASIE HARRIS on 02/16/211 Patient Home Medication List Home Medication List Reviewed: Yes Review of Systems Review of Systems Constitutional: No chills, No fever; malaise; No weakness EENTM: No Symptoms Reported Respiratory: Denies Cough, Denies Shortness of Air Cardiovascular: See HPI; Denies Chest Pain, Denies Edema; Irregular Heart Rate; Denies Lightheadedness; Palpitations; Denies Syncope Gastrointestinal: Denies Diarrhea, Denies Nausea, Denies Poor Appetite, Denies Vomiting Musculoskeletal: No back pain, No joint pain Skin: No change in color, No rash Psychiatric/Neurological: Anxiety; Denies Weakness Past Wwsrgqp-[id number]-[place] Hx Past Med/Social Hx: Reviewed Nursing Past Med/Soc Hx Patient Social History Drug of Choice: Marijuana Type Used: Cigarettes 2nd Hand Smoke Exposure: No Recent Hopitalizations: No Seasonal Allergies Seasonal Allergies: No Past Medical History Surgeries: Yes Tonsillectomy Respiratory: No Cardiac: Yes Hypertension Neurological: No Genitourinary: No Gastrointestinal: No Musculoskeletal: Yes Scoliosis Endocrine: No HEENT: No Cancer: No Psychosocial: Yes Anxiety Integumentary: No Blood Disorders: No Physical Exam Vital Signs Vital Signs - First Documented 02/16/21 20:37 Temp 37.5 Pulse 126 Resp 20 B/P (MAP) 151/97 (115) Pulse Ox 99 O2 Delivery Room Air Capillary Refill : Height, Weight, BMI Height: 6'1.00" Weight: 375lbs. oz. [id number]; 54.00 BMI Method:Stated General Appearance: No Apparent Distress, Anxious, Obese HEENT: PERRL/EOMI, Normal ENT Inspection Neck: Normal Inspection, Non Tender, Supple Respiratory: Lungs Clear, Normal Breath Sounds, No Accessory Muscle Use, No Respiratory Distress Cardiovascular: No Edema, No Gallop, No JVD, Tachycardia (120) Gastrointestinal: Non Tender, Soft Extremity: Normal Inspection, Non Tender Neurologic/Psychiatric: Alert, Oriented x3, No Motor/Sensory Deficits, Normal Mood/Affect Progress/Results/Core Measures Results/Orders Lab Results Laboratory Tests Test 02/16/21 20:50 Range/Units White Blood Count 14.0 H 4.3-11.0 10^3/uL Red Blood Count 5.50 4.35-5.85 10^6/uL Hemoglobin 16.9 13.3-17.7 G/DL Hematocrit 49 40-54 % Mean Corpuscular Volume 90 80-99 FL Mean Corpuscular Hemoglobin 31 25-34 PG Mean Corpuscular Hemoglobin Concent 34 32-36 G/DL Red Cell Distribution Width 13.2 10.0-14.5 % Platelet Count 206 130-400 10^3/uL Mean Platelet Volume 11.1 H 7.4-10.4 FL Immature Granulocyte % (Auto) 0 % Neutrophils (%) (Auto) 45 42-75 % Lymphocytes (%) (Auto) 24 12-44 % Monocytes (%) (Auto) 4 0-12 % Eosinophils (%) (Auto) 26 H 0-10 % Basophils (%) (Auto) 1 0-10 % Neutrophils # (Auto) 6.3 1.8-7.8 X 10^3 Lymphocytes # (Auto) 3.4 1.0-4.0 X 10^3 Monocytes # (Auto) 0.5 0.0-1.0 X 10^3 Eosinophils # (Auto) 3.6 H 0.0-0.3 10^3/uL Basophils # (Auto) 0.1 0.0-0.1 10^3/uL Immature Granulocyte # (Auto) 0.0 0.0-0.1 10^3/uL Neutrophils % (Manual) 47 % Lymphocytes % (Manual) 25 % Monocytes % (Manual) 3 % Eosinophils % (Manual) 25 % Sodium Level 134 L 135-145 MMOL/L Potassium Level 3.6 3.6-5.0 MMOL/L Chloride Level 101 98-107 MMOL/L Carbon Dioxide Level 22 21-32 MMOL/L Anion Gap 11 5-14 MMOL/L Blood Urea Nitrogen 17 7-18 MG/DL Creatinine 0.97 0.60-1.30 MG/DL Estimat Glomerular Filtration Rate > 60 BUN/Creatinine Ratio 18 Glucose Level 153 H 70-105 MG/DL Calcium Level 9.7 8.5-10.1 MG/DL Corrected Calcium 9.5 8.5-10.1 MG/DL Total Bilirubin 0.3 0.1-1.0 MG/DL Aspartate Amino Transf (AST/SGOT) 17 5-34 U/L Alanine Aminotransferase (ALT/SGPT) 24 0-55 U/L Alkaline Phosphatase 69 40-136 U/L Troponin I < 0.30 <0.30 NG/ML Total Protein 6.9 6.4-8.2 GM/DL Albumin 4.3 3.2-4.5 GM/DL My Orders Orders - ROVENSTINE,KASIE L DO Cbc With Automated Diff (02/16/21 20:40) Comprehensive Metabolic Panel (02/16/21 20:40) Troponin I Fs (02/16/21 20:40) Chest 1 View Ap/Pa Only (02/16/21 20:40) Ekg Tracing (02/16/21 20:40) Ed Iv/Invasive Line Start (02/16/21 20:40) Ns Iv 1000 Ml (Sodium Chloride 0.9%) (02/16/21 20:45) Manual Differential (02/16/21 20:50) Metoprolol Tartrate Injection (Lopressor (02/16/21 21:15) Medications Given in ED Current Medications Medications Dose Ordered Sig/Erika Route Start Time Stop Time Status Last Admin Dose Admin Metoprolol Tartrate 5 mg ONCE ONCE IV 02/16/21 21:15 02/16/21 21:16 DC 02/16/21 21:14 5 MG Vital Signs/I&O 02/16/21 02/16/21 20:37 22:09 Temp 37.5 Pulse 126 104 Resp 20 18 B/P (MAP) 151/97 (115) 164/103 Pulse Ox 99 98 O2 Delivery Room Air Room Air Progress Progress Note : Progress Note patient HR and demeanor improved p treatment. Counseled regarding drugs and their stimulant effects on his heart. Patient somewhat receptive to advice. Known anxiety, needs close follow up w PCP, this was encouraged with patient. History of previous ER visits for the same. Initial ECG Impression Date: Feb 16, 2021 Initial ECG Impression Time: 20:40 Initial ECG Rate: 127 Initial ECG Rhythm: S.Tach Initial ECG Intervals: Normal Initial ECG Impression: Normal Initial ECG Comparisson: No Previous ECG Available Diagnostic Imaging Diagonstic Imaging: Xray Plain Films/CT/US/NM/MRI: chest Comments Date of Exam:02/16/21 CHEST 1 VIEW AP/PA ONLY INDICATION: Chest pain. COMPARISON: 02/19/2020. FINDINGS: The lungs are clear and normally expanded. There is no effusion or pneumothorax. There is no failure pattern. No free air beneath the diaphragms. IMPRESSION: Stable normal frontal chest. Dictated on workstation # [id number] Dict: 02/16/212105 Trans: 02/16/212113 [facility] 1932[address]1950 Interpreted by: DIANE SANCHEZ Electronically signed by: Departure Impression Primary Impression: Sinus tachycardia Additional Impressions: Anxiety Obesity Qualified Codes: E66.9 - Obesity, unspecified Drug abuse and dependence Disposition: 01 HOME, SELF-CARE Condition: Improved Departure-Patient Inst. Decision time for Depature: 22:00 Referrals: ISRA VALLE MD (PCP/Family) Primary Care Physician Patient Instructions: Sinus Tachycardia (DC), Anxiety, Adult ED Add. Discharge Instructions: follow up with Dr Valle in 1 week regarding your blood pressure, episodes of fast heart rates and assistance with quitting smoking and weed. Avoid caffeine as well. Scripts Metoprolol Succinate (Metoprolol Succinate) 50 Mg Tab.er.24h 50 MG PO DAILY, #30 TAB Prov: KASIE HARRIS DO 02/16/21 KASIE HARRIS DO Feb 16, 2021 20:38
[2021-02-16] MEDS ORDERED: NS IV 1000 ML 1,000 ML IV SCH (20:45)
[2021-02-16 20:52] LABS: BASOPHILS # (AUTO) 0.1 10^3/uL (0.0-0.1); BASOPHILS % (AUTO) 1 % (0-10); EOSINOPHILS # (AUTO) 3.6 10^3/uL (0.0-0.3); EOSINOPHILS % (AUTO) 26 % (0-10); HEMATOCRIT 49 % (40-54); HEMOGLOBIN 16.9 G/DL (13.3-17.7); LYMPHOCYTES # (AUTO) 3.4 X 10^3 (1.0-4.0); LYMPHOCYTES % (AUTO) 24 % (12-44); MEAN CORPUSCULAR HEMOGLOBIN 31 PG (25-34); MEAN CORPUSCULAR HGB CONC 34 G/DL (32-36); MEAN CORPUSCULAR VOLUME 90 FL (80-99); MEAN PLATELET VOLUME 11.1 FL (7.4-10.4); MONOCYTES # (AUTO) 0.5 X 10^3 (0.0-1.0); MONOCYTES % (AUTO) 4 % (0-12); NEUTROPHILS # (AUTO) 6.3 X 10^3 (1.8-7.8); NEUTROPHILS % (AUTO) 45 % (42-75); PLATELET COUNT 206 10^3/uL (130-400)
--- NOTE | 2021-02-16 21:14 | Diagnostic Imaging Report ---
INDICATION: Chest pain. COMPARISON: 02/19/2020. FINDINGS: The lungs are clear and normally expanded. There is no effusion or pneumothorax. There is no failure pattern. No free air beneath the diaphragms. IMPRESSION: Stable normal frontal chest. Dictated by: Dictated on workstation # [id number]
[2021-02-16 21:15] LABS: ALANINE AMINOTRANSFERASE 24 U/L (0-55); ALBUMIN 4.3 GM/DL (3.2-4.5); ALKALINE PHOSPHATASE 69 U/L (40-136); BILIRUBIN,TOTAL 0.3 MG/DL (0.1-1.0); BUN/CREATININE RATIO 18; CALCIUM 9.7 MG/DL (8.5-10.1); CARBON DIOXIDE 22 MMOL/L (21-32); CHLORIDE 101 MMOL/L (98-107); CREATININE SERUM 0.97 MG/DL (0.60-1.30); GFR ESTIMATED > 60; GLUCOSE 153 MG/DL (70-105); POTASSIUM 3.6 MMOL/L (3.6-5.0); SODIUM 134 MMOL/L (135-145); TOTAL PROTEIN 6.9 GM/DL (6.4-8.2)
[2021-02-16] MEDS ORDERED: meTOprolol 5 MG/5 ML (LOPRESSOR) VIAL IV ONE (21:15)
[2021-02-16 21:49] LABS: EOSINOPHILS % (MANUAL) 25 %; LYMPHOCYTES % (MANUAL) 25 %; MONOCYTES % (MANUAL) 3 %; NEUTROPHILS % (MANUAL) 47 %
[2021-02-16] MEDS ORDERED: METO50TA7 PO (22:01)
[2021-02-16 22:09] VITALS: BP 164/103
== END 2021-02-16 22:09 | disposition home or self-care (01) ==
LOC: EDUNIT# 20:35 → ER FS 20:36
DX: R00.0 Tachycardia, unspecified (principal); F41.9 Anxiety disorder, unspecified; E66.9 Obesity, unspecified; I10 Essential (primary) hypertension; F19.10 Other psychoactive substance abuse, uncomplicated; F17.210 Nicotine dependence, cigarettes, uncomplicated; Z88.1 Allergy status to other antibiotic agents; Z68.43 Body mass index [BMI] 50.0-59.9, adult
CPT/HCPCS: 36415; 71045; 80053; 84484; 85007; 85027

== ENCOUNTER 2021-06-27 08:05 | Emergency (ER) | payer SELFPAY ==
[~2021-06-27] VITALS: Ht 185.5 cm; Wt 184.6 kg
[~2021-06-27 08:05] MED LIST changes: +METO50TA7 PO
[2021-06-27 08:21] VITALS: BP 173/113
[2021-06-27] MEDS ORDERED: ONDANSETRON 4 MG/2 ML (SDV) Z0FRAN IVP ONE (08:30)
[2021-06-27] MEDS ORDERED: ASPIRIN 81 MG CHEW (CHILDREN'S ASA) PO ONE (08:30)
[2021-06-27] MEDS ORDERED: NS IV 1000 ML 1,000 ML IV SCH (08:30)
--- NOTE | 2021-06-27 08:39 | ED GI ---
General Chief Complaint: Abdominal/GI Problems Stated Complaint: VOMITING; LIGHT-HEADED/DIZZINESS Nursing Triage Note: Patient reports he went to bed feeling well last night, slept around 3 hours, then woke with nausea/vomiting and feeling lightheaded. He initially reported some intermittent chest pain radiating down his arm which he attributes to his anxiety, but when asked to rate his pain, patient states "it's not exactly pain." Patient states he is prone to panic attacks and does usually have nausea and vomiting with his panic attacks. History of Present Illness Date Seen by Provider: Jun 27, 2021 Time Seen by Provider: 08:20 Initial Comments 34-year-old male presents with onset of nausea and dizziness which began in middle of the night. Patient denies any preceding illness, fever chills, upper respiratory or lower respiratory symptoms. Does have some intermittent associated chest pain radiating to left arm, which patient has had frequently and associated with anxiety attacks. He is an overweight cigarette smoker and regular marijuana user. Allergies and Home Medications Allergies Coded Allergies: amoxicillin (Verified Allergy, Unknown, 02/16/21) Home Medications Aspirin 81 Mg Tablet.dr, 81 MG PO DAILY Prescribed by: KASIE HARRIS on 06/27/21 1002 Famotidine 20 Mg Tablet, 20 MG PO BID Prescribed by: KASIE HARRIS on 06/27/21 1002 Hydroxyzine Pamoate 50 Mg Capsule, 50 MG PO Q6H PRN for AGITATION Prescribed by: ABRAHAM BARBER on 02/19/20 1034 Lisinopril/Hydrochlorothiazide 1 Each Tablet, 1 EACH PO DAILY Prescribed by: ABRAHAM BARBER on 02/19/20 1034 Metoprolol Succinate 50 Mg Tab.er.24h, 50 MG PO DAILY Prescribed by: KASIE HARRIS on 02/16/21 2201 Patient Home Medication List Home Medication List Reviewed: Yes Review of Systems Review of Systems Constitutional: No fever; malaise; No weakness Respiratory: Denies Cough, Denies Shortness of Air Cardiovascular: Chest Pain (intermittent, not in ER); Denies Edema; Lightheadedness; Denies Palpitations, Denies Syncope Gastrointestinal: Denies Abdominal Pain, Denies Constipated, Denies Diarrhea; Nausea; Denies Poor Appetite, Denies Vomiting Musculoskeletal: No back pain, No joint pain Skin: No change in color, No rash Psychiatric/Neurological: Denies Numbness, Denies Paresthesia, Denies Seizure Past Rqctnui-Ormqcw-Zpzduy Hx Patient Social History Tobacco Use?: Yes Tobacco type used: Cigarettes Smoking Status: Current Everyday Smoker Substance use?: Yes Substance type: Marijuana Additional substance use comme: Last used 06/25/21 Substance frequency: Couple times a week Alcohol Use?: No Pt feels they are or have been: No Seasonal Allergies Seasonal Allergies: No Past Medical History Surgery/Hospitalization HX: HTN Surgeries: Yes Tonsillectomy Respiratory: No Cardiac: Yes Hypertension Neurological: No Genitourinary: No Gastrointestinal: No Musculoskeletal: Yes Scoliosis Endocrine: No HEENT: No Cancer: No Psychosocial: Yes Anxiety Integumentary: No Blood Disorders: No Physical Exam Vital Signs Vital Signs - First Documented 06/27/21 08:21 Temp 36.5 Pulse 83 Resp 18 B/P (MAP) 173/113 (133) Pulse Ox 99 O2 Delivery Room Air Capillary Refill : Less Than 3 Seconds Height/Weight/BMI Height: 6'1.00" Weight: 375lbs. oz. 170.287702oj; 53.00 BMI Method:Stated General Appearance: WD/WN, no apparent distress, obese HEENT: PERRL/EOMI, normal ENT inspection Neck: non-tender, supple Respiratory: chest non-tender, lungs clear, normal breath sounds Cardiovascular: regular rate, rhythm, no edema, no JVD Gastrointestinal: normal bowel sounds, non tender, no pulsatile mass Extremities: normal range of motion, non-tender, no pedal edema Back: normal inspection, no CVA tenderness Neurologic/Psychiatric: no motor/sensory deficits, alert, normal mood/affect, oriented x 3 Skin: normal color, warm/dry Progress/Results/Core Measures Results/Orders Lab Results Laboratory Tests Test 06/27/21 08:20 Range/Units White Blood Count 9.5 4.3-11.0 10^3/uL Red Blood Count 5.43 4.30-5.52 10^6/uL Hemoglobin 16.6 13.3-17.7 g/dL Hematocrit 50 40-54 % Mean Corpuscular Volume 92 80-99 fL Mean Corpuscular Hemoglobin 31 25-34 pg Mean Corpuscular Hemoglobin Concent 33 32-36 g/dL Red Cell Distribution Width 13.5 10.0-14.5 % Platelet Count 193 130-400 10^3/uL Mean Platelet Volume 11.6 9.0-12.2 fL Immature Granulocyte % (Auto) 0 % Neutrophils (%) (Auto) 51 42-75 % Lymphocytes (%) (Auto) 27 12-44 % Monocytes (%) (Auto) 6 0-12 % Eosinophils (%) (Auto) 15 H 0-10 % Basophils (%) (Auto) 1 0-10 % Neutrophils # (Auto) 4.8 1.8-7.8 X 10^3 Lymphocytes # (Auto) 2.6 1.0-4.0 X 10^3 Monocytes # (Auto) 0.1 0.0-1.0 X 10^3 Eosinophils # (Auto) 1.4 H 0.0-0.3 10^3/uL Basophils # (Auto) 0.1 0.0-0.1 10^3/uL Immature Granulocyte # (Auto) 0.0 0.0-0.1 10^3/uL Neutrophils % (Manual) 52 % Lymphocytes % (Manual) 15 % Monocytes % (Manual) 7 % Eosinophils % (Manual) 16 % Basophils % (Manual) 2 % Metamyelocytes % 1 % Band Neutrophils 2 % Atypical Lymphocytes 5 % Sodium Level 134 L 135-145 MMOL/L Potassium Level 4.2 3.6-5.0 MMOL/L Chloride Level 98 98-107 MMOL/L Carbon Dioxide Level 25 21-32 MMOL/L Anion Gap 11 5-14 MMOL/L Blood Urea Nitrogen 20 H 7-18 MG/DL Creatinine 0.82 0.60-1.30 MG/DL Estimat Glomerular Filtration Rate 108 BUN/Creatinine Ratio 24 Glucose Level 124 H 70-105 MG/DL Calcium Level 9.1 8.5-10.1 MG/DL Corrected Calcium 9.0 8.5-10.1 MG/DL Total Bilirubin 0.2 0.1-1.0 MG/DL Aspartate Amino Transf (AST/SGOT) 24 5-34 U/L Alanine Aminotransferase (ALT/SGPT) 22 0-55 U/L Alkaline Phosphatase 68 40-136 U/L Troponin I < 0.30 <0.30 NG/ML Total Protein 6.7 6.4-8.2 GM/DL Albumin 4.1 3.2-4.5 GM/DL My Orders Orders - KASIE HARRIS DO Ed Iv/Invasive Line Start (06/27/21 08:28) Cbc With Automated Diff (06/27/21 08:28) Comprehensive Metabolic Panel (06/27/21 08:28) Troponin I Fs (06/27/21 08:28) Chest 1 View Ap/Pa Only (06/27/21 08:28) Ekg Tracing (06/27/21 08:28) Ns Iv 1000 Ml (Sodium Chloride 0.9%) (06/27/21 08:30) Ondansetron Injection (Zofran Injectio (06/27/21 08:30) Aspirin Chewable Tablet (Baby Aspirin Ch (06/27/21 08:30) Manual Differential (06/27/21 08:20) Medications Given in ED Current Medications Medications Dose Ordered Sig/Erika Route Start Time Stop Time Status Last Admin Dose Admin Aspirin 324 mg ONCE ONCE PO 06/27/21 08:30 06/27/21 08:31 DC 06/27/21 08:35 324 MG Ondansetron HCl 4 mg ONCE ONCE IVP 06/27/21 08:30 06/27/21 08:31 DC 06/27/21 08:35 4 MG Vital Signs/I&O 06/27/21 06/27/21 08:21 10:10 Temp 36.5 Pulse 83 82 Resp 18 18 B/P (MAP) 173/113 (133) 181/118 Pulse Ox 99 97 O2 Delivery Room Air Room Air Blood Pressure Mean: 133 Progress Progress Note : Progress Note discussed need for outpatient stress test w Dr Belcher, patient expresses understanding and need to call tomorrow to schedule an appointment in 1 week Initial ECG Impression Date: Jun 27, 2021 Initial ECG Impression Time: 08:35 Initial ECG Rhythm: Normal Sinus Initial ECG Intervals: Normal Initial ECG Impression: Normal Initial ECG Comparisson: Changed (from ECG 02/19/2020) Comment inferior q wave III, small ST elevation 1mm II & III Diagnostic Imaging Diagonstic Imaging: Xray Plain Films/CT/US/NM/MRI: chest Comments CORRELATION STUDY: 02/16/2021. FINDINGS: The heart size, mediastinal configuration, and pulmonary vascularity are within normal limits. Questioned minimal early infiltrate at the right lung base. Remaining lung chaney are otherwise clear. IMPRESSION: Questioned very small early infiltrate at the right lung base. Dictated on workstation # [id number] Dict: 06/27/21 0843 Trans: 06/27/21 0845 [id number] Interpreted by: YONG TALLEY DO Electronically signed by: Departure Impression Primary Impression: Nausea alone Additional Impressions: Dizziness Hypertension Qualified Codes: I10 - Essential (primary) hypertension Abnormal ECG Disposition: HOME, SELF-CARE Condition: Stable Departure-Patient Inst. Decision time for Depature: 09:28 Referrals: ISRA VALLE MD (PCP/Family) Primary Care Physician FAREED BELCHER MD FACP FACC CCDS Patient Instructions: ECG and Stress Test Add. Discharge Instructions: Call Dr Valle today to schedule a follow up appointment in 2 to 3 days. You are advised to have a stress test done in the next [address] Belcher's office (Title [employer] Agent in [place]) to schedule your stress test. Continue taking your blood pressure medication, but stop taking it at night and start taking every morning when you wake up. You are advised to take a Baby Aspirin (81mg) daily until told otherwise by Dr Valle or your Title Insurance Agent. All discharge instructions reviewed with patient and/or family. Voiced understanding. Scripts Aspirin (Aspirin EC) 81 Mg Tablet. 81 MG PO DAILY for 30 Days, #30 TAB Prov: KASIE HARRIS DO 06/27/21 Famotidine (Pepcid) 20 Mg Tablet 20 MG PO BID, #30 TAB Prov: KASIE HARRIS DO 06/27/21 KASIE HARRIS DO Jun 27, 2021 08:39
[2021-06-27 08:42] LABS: BASOPHILS % (AUTO) 1 % (0-10); EOSINOPHILS % (AUTO) 15 % (0-10); HEMATOCRIT 50 % (40-54); HEMOGLOBIN 16.6 g/dL (13.3-17.7); LYMPHOCYTES % (AUTO) 27 % (12-44); MEAN CORPUSCULAR HEMOGLOBIN 31 pg (25-34); MEAN CORPUSCULAR HGB CONC 33 g/dL (32-36); MEAN CORPUSCULAR VOLUME 92 fL (80-99); MEAN PLATELET VOLUME 11.6 fL (9.0-12.2); MONOCYTES % (AUTO) 6 % (0-12); NEUTROPHILS % (AUTO) 51 % (42-75); PLATELET COUNT 193 10^3/uL (130-400); WHITE BLOOD COUNT 9.5 10^3/uL (4.3-11.0)
[2021-06-27 08:43] LABS: BASOPHILS # (AUTO) 0.1 10^3/uL (0.0-0.1); EOSINOPHILS # (AUTO) 1.4 10^3/uL (0.0-0.3); LYMPHOCYTES # (AUTO) 2.6 X 10^3 (1.0-4.0); MONOCYTES # (AUTO) 0.1 X 10^3 (0.0-1.0); NEUTROPHILS # (AUTO) 4.8 X 10^3 (1.8-7.8)
--- NOTE | 2021-06-27 08:46 | Diagnostic Imaging Report ---
INDICATION: Nausea, chest pain. TECHNIQUE: Single view chest at 8:20 AM. CORRELATION STUDY: 02/16/2021. FINDINGS: The heart size, mediastinal configuration, and pulmonary vascularity are within normal limits. Questioned minimal early infiltrate at the right lung base. Remaining lung chaney are otherwise clear. IMPRESSION: Questioned very small early infiltrate at the right lung base. Dictated by: Dictated on workstation # [id number]
[2021-06-27 09:12] LABS: ATYPICAL LYMPHOCYTES 5 %; BAND NEUTROPHILS 2 %; BASOPHILS % (MANUAL) 2 %; EOSINOPHILS % (MANUAL) 16 %; LYMPHOCYTES % (MANUAL) 15 %; METAMYELOCYTES % 1 %; MONOCYTES % (MANUAL) 7 %; NEUTROPHILS % (MANUAL) 52 %
[2021-06-27 09:21] LABS: CARBON DIOXIDE 25 MMOL/L (21-32); CHLORIDE 98 MMOL/L (98-107); POTASSIUM 4.2 MMOL/L (3.6-5.0); SODIUM 134 MMOL/L (135-145)
[2021-06-27 09:22] LABS: ALBUMIN 4.1 GM/DL (3.2-4.5); ALKALINE PHOSPHATASE 68 U/L (40-136); BILIRUBIN,TOTAL 0.2 MG/DL (0.1-1.0); BUN/CREATININE RATIO 24; CALCIUM 9.1 MG/DL (8.5-10.1); CREATININE SERUM 0.82 MG/DL (0.60-1.30); GFR ESTIMATED 108; GLUCOSE 124 MG/DL (70-105); TOTAL PROTEIN 6.7 GM/DL (6.4-8.2)
[2021-06-27 09:34] LABS: ALANINE AMINOTRANSFERASE 22 U/L (0-55)
[2021-06-27] MEDS ORDERED: ASPI-1238 PO (10:02)
[2021-06-27] MEDS ORDERED: FAMO-119 PO (10:02)
== END 2021-06-27 10:10 | disposition home or self-care (01) ==
LOC: EDUNIT# 08:05 → ER FS 08:06
DX: R11.0 Nausea (principal); R42 Dizziness and giddiness; I10 Essential (primary) hypertension; R94.31 Abnormal electrocardiogram [ECG] [EKG]; E66.9 Obesity, unspecified; F17.210 Nicotine dependence, cigarettes, uncomplicated; F41.9 Anxiety disorder, unspecified; Z68.43 Body mass index [BMI] 50.0-59.9, adult
CPT/HCPCS: 36415; 71045; 80053; 84484; 85007; 85027; 93005

== ENCOUNTER 2021-06-27 22:24 | Emergency (ER) | payer SELFPAY ==
[~2021-06-27] VITALS: Ht 185.5 cm; Wt 167.8 kg
[~2021-06-27 22:24] MED LIST changes: +ASPI-1238 PO; +FAMO-119 PO
--- NOTE | 2021-06-27 22:38 | ED Chest Pain ---
General Chief Complaint: Chest Pain Stated Complaint: TACHYCARDIA;CHEST PAIN Nursing Triage Note: PT AMBULATE TO ROOM FS01 WITH C/O CHEST PAIN SINCE THIS MORNING. PT REPORTS BEING SEEN IN THIS ED THIS MORNING FOR SAME C/O WITH ALL TESTS RESULTS BEING NEGATIVE. PT STATES THAT "NOTHING HAS CHANGED" AND THAT "THE PAIN HAS GOTTEN WORSE". Source: patient Exam Limitations: no limitations History of Present Illness Date Seen by Provider: Jun 27, 2021 Time Seen by Provider: 22:29 Initial Comments 52-year-old male presents with loss of appetite, nausea without vomiting and intermittent chest pressure occurring all day today. Patient seen in this ER this morning, by myself..... He says he has been worried all day about having an abnormal EKG he needed to see a shed boss. He has been able to stop thinking about it. Allergies and Home Medications Allergies Coded Allergies: amoxicillin (Verified Allergy, Unknown, 02/16/21) Home Medications Aspirin 81 Mg Tablet.dr, 81 MG PO DAILY Prescribed by: KASIE HARRIS on 06/27/21 1002 Famotidine 20 Mg Tablet, 20 MG PO BID Prescribed by: KASIE HARRIS on 06/27/21 1002 Hydroxyzine Pamoate 50 Mg Capsule, 50 MG PO Q6H PRN for AGITATION Prescribed by: ABRAHAM BARBER on 02/19/20 1034 Lisinopril/Hydrochlorothiazide 1 Each Tablet, 1 EACH PO DAILY Prescribed by: ABRAHAM BARBER on 02/19/20 1034 Metoprolol Succinate 50 Mg Tab.er.24h, 50 MG PO DAILY Prescribed by: KASIE HARRIS on 02/16/21 2201 Patient Home Medication List Home Medication List Reviewed: Yes Review of Systems Review of Systems Constitutional: No chills, No fever; malaise EENTM: No Symptoms Reported Respiratory: Denies Cough, Denies Shortness of Air Cardiovascular: Chest Pain (intermittent pressure, has had many times prior), Lightheadedness; Denies Palpitations, Denies Syncope Gastrointestinal: See HPI; Denies Abdominal Pain; Nausea, Poor Appetite; Denies Vomiting Musculoskeletal: No back pain, No joint pain Skin: No change in color, No rash Psychiatric/Neurological: Anxiety; Denies Numbness, Denies Paresthesia, Denies Weakness Past Pyaijso-Efvtfb-Yhppjx Hx Patient Social History Tobacco Use?: Yes Substance use?: Yes Substance type: Marijuana Seasonal Allergies Seasonal Allergies: No Past Medical History Surgery/Hospitalization HX: HTN Surgeries: Yes Tonsillectomy Respiratory: No Cardiac: Yes Hypertension Neurological: No Genitourinary: No Gastrointestinal: No Musculoskeletal: Yes Scoliosis Endocrine: No HEENT: No Cancer: No Psychosocial: Yes Anxiety Integumentary: No Blood Disorders: No Physical Exam Vital Signs Vital Signs - First Documented 06/27/21 22:25 Temp 36.9 Pulse 107 Resp 18 B/P (MAP) 140/94 (109) O2 Delivery Room Air Capillary Refill : Less Than 3 Seconds Height, Weight, BMI Height: 6'1.00" Weight: 375lbs. oz. 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 Norm as Tested Skin: Normal Color, Warm/Dry Progress/Results/Core Measures Results/Orders Lab Results Laboratory Tests Test 06/27/21 22:42 Range/Units White Blood Count 12.9 H 4.3-11.0 10^3/uL Red Blood Count 5.44 4.30-5.52 10^6/uL Hemoglobin 16.6 13.3-17.7 g/dL Hematocrit 49 40-54 % Mean Corpuscular Volume 90 80-99 fL Mean Corpuscular Hemoglobin 31 25-34 pg Mean Corpuscular Hemoglobin Concent 34 32-36 g/dL Red Cell Distribution Width 13.2 10.0-14.5 % Platelet Count 214 130-400 10^3/uL Mean Platelet Volume 11.4 9.0-12.2 fL Immature Granulocyte % (Auto) 0 % Neutrophils (%) (Auto) 64 42-75 % Lymphocytes (%) (Auto) 23 12-44 % Monocytes (%) (Auto) 7 0-12 % Eosinophils (%) (Auto) 6 0-10 % Basophils (%) (Auto) 1 0-10 % Neutrophils # (Auto) 8.2 H 1.8-7.8 X 10^3 Lymphocytes # (Auto) 3.0 1.0-4.0 X 10^3 Monocytes # (Auto) 0.9 0.0-1.0 X 10^3 Eosinophils # (Auto) 0.8 H 0.0-0.3 10^3/uL Basophils # (Auto) 0.1 0.0-0.1 10^3/uL Immature Granulocyte # (Auto) 0.0 0.0-0.1 10^3/uL Sodium Level 136 135-145 MMOL/L Potassium Level 3.7 3.6-5.0 MMOL/L Chloride Level 98 98-107 MMOL/L Carbon Dioxide Level 26 21-32 MMOL/L Anion Gap 12 5-14 MMOL/L Blood Urea Nitrogen 13 7-18 MG/DL Creatinine 0.84 0.60-1.30 MG/DL Estimat Glomerular Filtration Rate 105 BUN/Creatinine Ratio 15 Glucose Level 110 H 70-105 MG/DL Calcium Level 9.5 8.5-10.1 MG/DL Corrected Calcium 9.2 8.5-10.1 MG/DL Total Bilirubin 0.4 0.1-1.0 MG/DL Aspartate Amino Transf (AST/SGOT) 15 5-34 U/L Alanine Aminotransferase (ALT/SGPT) 21 0-55 U/L Alkaline Phosphatase 63 40-136 U/L Troponin I < 0.30 <0.30 NG/ML Total Protein 7.1 6.4-8.2 GM/DL Albumin 4.4 3.2-4.5 GM/DL My Orders Orders - ROVENSTINEROBYNKASIE L DO Ed Iv/Invasive Line Start (06/27/21 22:33) Troponin I Fs (06/27/21 22:33) Cbc With Automated Diff (06/27/21 22:33) Comprehensive Metabolic Panel (06/27/21 22:33) Chest 1 View Ap/Pa Only (06/27/21 22:33) Ekg Tracing (06/27/21 22:33) Ondansetron Injection (Zofran Injectio (06/27/21 23:00) Famotidine Tablet (Pepcid Tablet) (06/27/21 23:00) Ns Iv 1000 Ml (Sodium Chloride 0.9%) (06/27/21 23:00) Medications Given in ED Current Medications Medications Dose Ordered Sig/Erika Route Start Time Stop Time Status Last Admin Dose Admin Famotidine 20 mg ONCE ONCE PO 06/27/21 23:00 06/27/21 23:01 DC 06/27/21 23:03 20 MG Ondansetron HCl 4 mg ONCE ONCE IVP 06/27/21 23:00 06/27/21 23:01 DC 06/27/21 23:03 4 MG Vital Signs/I&O 06/27/21 22:25 Temp 36.9 Pulse 107 Resp 18 B/P (MAP) 140/94 (109) O2 Delivery Room Air Blood Pressure Mean: 109 Initial ECG Impression Date: Jun 27, 2021 Initial ECG Impression Time: 22:30 Initial ECG Rate: 100 Initial ECG Rhythm: S.Tach Initial ECG Intervals: Normal Initial ECG Impression: Normal, Nonspecific Changes (T wave) Diagnostic Imaging Diagonstic Imaging: Xray Plain Films/CT/US/NM/MRI: chest Comments Date of Exam:06/27/21 CHEST 1 VIEW AP/PA ONLY INDICATION: Chest pain COMPARISON: 06/27/2021 TECHNIQUE: Single radiograph of the chest dated 06/27/2021 at 2237 FINDINGS: The cardiac silhouette is within normal limits in size. No significant pulmonary vascular congestion. Minimal right basilar interstitial infiltrate is again suspected. The left lung appears clear. No significant pleural effusion. No pneumothorax. No acute osseous abnormality. IMPRESSION: Similar-appearing examination with minimal right basilar atelectasis and/or infiltrate. Dictated on workstation # [id number] Dict: 06/27/214 Trans: 06/27/21 2309 [facility] [id number] Interpreted by: RAMBO KEARNEY MD Electronically signed by: Departure Impression Primary Impression: Chest pain Qualified Codes: R07.9 - Chest pain, unspecified Disposition: HOME, SELF-CARE Condition: Stable Departure-Patient Inst. Decision time for Depature: 23:25 Referrals: ISRA VALLE MD (PCP/Family) Primary Care Physician FAREED BELCHER MD FACP FACC CCDS Patient Instructions: Anxiety, Adult (DC), Chest Pain, Adult ED Add. Discharge Instructions: Keep your appointment to see Dr Gugnani tomorrow as planned. You are still advised to follow up with Dr Belcher's office to schedule a stress test. All discharge instructions reviewed with patient and/or family. Voiced understanding. KASIE HARRIS DO Jun 27, 2021 22:38
[2021-06-27 22:51] LABS: WHITE BLOOD COUNT 12.9 10^3/uL (4.3-11.0)
[2021-06-27 22:53] LABS: EOSINOPHILS % (AUTO) 6 % (0-10); HEMATOCRIT 49 % (40-54); HEMOGLOBIN 16.6 g/dL (13.3-17.7); LYMPHOCYTES % (AUTO) 23 % (12-44); MEAN CORPUSCULAR HEMOGLOBIN 31 pg (25-34); MEAN CORPUSCULAR HGB CONC 34 g/dL (32-36); MEAN CORPUSCULAR VOLUME 90 fL (80-99); MEAN PLATELET VOLUME 11.4 fL (9.0-12.2); MONOCYTES % (AUTO) 7 % (0-12); NEUTROPHILS % (AUTO) 64 % (42-75); PLATELET COUNT 214 10^3/uL (130-400)
[2021-06-27 22:54] LABS: BASOPHILS # (AUTO) 0.1 10^3/uL (0.0-0.1); BASOPHILS % (AUTO) 1 % (0-10); EOSINOPHILS # (AUTO) 0.8 10^3/uL (0.0-0.3); MONOCYTES # (AUTO) 0.9 X 10^3 (0.0-1.0); NEUTROPHILS # (AUTO) 8.2 X 10^3 (1.8-7.8)
[2021-06-27] MEDS ORDERED: ONDANSETRON 4 MG/2 ML (SDV) Z0FRAN IVP ONE (23:00)
[2021-06-27] MEDS ORDERED: FAMOTIDINE 20 MG (PEPCID) TABLET PO ONE (23:00)
[2021-06-27] MEDS ORDERED: NS IV 1000 ML 1,000 ML IV SCH (23:00)
[2021-06-27 23:11] LABS: CARBON DIOXIDE 26 MMOL/L (21-32); CHLORIDE 98 MMOL/L (98-107); POTASSIUM 3.7 MMOL/L (3.6-5.0); SODIUM 136 MMOL/L (135-145)
--- NOTE | 2021-06-27 23:11 | Diagnostic Imaging Report ---
INDICATION: Chest pain COMPARISON: 06/27/2021 TECHNIQUE: Single radiograph of the chest dated 06/27/2021 at 2237 FINDINGS: The cardiac silhouette is within normal limits in size. No significant pulmonary vascular congestion. Minimal right basilar interstitial infiltrate is again suspected. The left lung appears clear. No significant pleural effusion. No pneumothorax. No acute osseous abnormality. IMPRESSION: Similar-appearing examination with minimal right basilar atelectasis and/or infiltrate. Dictated by: Dictated on workstation # [id number]
[2021-06-27 23:12] LABS: ALANINE AMINOTRANSFERASE 21 U/L (0-55); ALBUMIN 4.4 GM/DL (3.2-4.5); ALKALINE PHOSPHATASE 63 U/L (40-136); BILIRUBIN,TOTAL 0.4 MG/DL (0.1-1.0); BUN/CREATININE RATIO 15; CALCIUM 9.5 MG/DL (8.5-10.1); CREATININE SERUM 0.84 MG/DL (0.60-1.30); GFR ESTIMATED 105; GLUCOSE 110 MG/DL (70-105); TOTAL PROTEIN 7.1 GM/DL (6.4-8.2)
[2021-06-27 23:41] VITALS: BP 153/102
== END 2021-06-27 23:41 | disposition home or self-care (01) ==
LOC: EDUNIT# 22:24 → ER FS 22:26
DX: R07.9 Chest pain, unspecified (principal); I10 Essential (primary) hypertension; E66.9 Obesity, unspecified; F41.9 Anxiety disorder, unspecified; Z68.42 Body mass index [BMI] 45.0-49.9, adult; Z79.899 Other long term (current) drug therapy
CPT/HCPCS: 36415; 71045; 80053; 84484; 85025

== ENCOUNTER 2021-07-07 17:44 | Emergency (ER) | payer MEDICAID, OTHER ==
[~2021-07-07] VITALS: Ht 185.4 cm; Wt 176.9 kg
[2021-07-07] MEDS ORDERED: NS IV 1000 ML 1,000 ML IV STA (18:25)
[2021-07-07] MEDS ORDERED: ONDANSETRON 4 MG/2 ML (SDV) Z0FRAN IVP STA (18:25)
[2021-07-07] MEDS ORDERED: PANTOPRAZOLE 40 MG (PROTONIX) VIAL IV STA (18:25)
[2021-07-07 18:30] LABS: BACTERIA,URINE TRACE /HPF; BILIRUBIN,URINE NEGATIVE (NEGATIVE); CLARITY,URINE SLIGHTLY CLOUDY; COLOR,URINE YELLOW; GLUCOSE, URINE (UA) NEGATIVE (NEGATIVE); KETONES,URINE NEGATIVE (NEGATIVE); LEUKOCYTE ESTERASE ,URINE NEGATIVE (NEGATIVE); NITRITE,URINE NEGATIVE (NEGATIVE); PH,URINE 5.5 (5-9); PROTEIN,URINE NEGATIVE (NEGATIVE); WBC,URINE RARE /HPF
--- NOTE | 2021-07-07 18:31 | ED General ---
General Chief Complaint: Abdominal/GI Problems Stated Complaint: VOMITING; EPIGASTRIC PAIN Nursing Triage Note: Patient presents to ED reporting reoccurance of sx seen for recently. Pt states nausea and vomiting after every meal. Pt reports usually a spasm in epigastric region with eating. No pain at present. Pt having loose BM's. No follow up yet from recent ED visits but scheduled for PCP and Denitrator later in month. Pt reports no caffeine or stimulant drinks and calorie reduction of meals to 1000. Source of Information: Patient, Old Records History of Present Illness Date Seen by Provider: Jul 07, 2021 Time Seen by Provider: 17:46 Initial Comments 35-year-old male presenting with complaint of epigastric spasms and pain going into his chest. He has been having nausea and vomiting especially after he tries to eat. He states he has not been able to keep anything down other than some fluids in the last 10 days. He was seen June 27 for similar symptoms when they first started. He was told at that time to follow-up with cardiology and his primary care physician. He states his appointments are not until the and . He has pains going into his left and right arm at times. He does admit to having some anxiety and worry about the symptoms and is convinced that he has heart problems. He reports always being able to hear his heartbeat and has noticed that he occasionally hears his heart skip a beat. His symptoms have been fairly constant since June 27 when he was first seen. Severity: Moderate Modifying Factors: worse with Eating Associated Systoms: Chest Pain (Spasms from epigastric area going into his left chest and occasionally the left or right arm); No Cough; Diaphoresis; No Fever/Chills; Headaches (Occasional sharp pains in his head that are chronic); No Loss of Appetite, No Malaise; Nausea/Vomiting; No Rash, No Seizure, No Shortness of Air, No Syncope; Weakness Allergies and Home Medications Allergies Coded Allergies: amoxicillin (Verified Allergy, Unknown, 02/16/21) Patient Home Medication List Home Medication List Reviewed: Yes Aspirin (Aspirin EC) 81 Mg Tablet.dr, 81 MG PO DAILY Prescribed by: KASIE HARRIS on 06/27/21 1002 Last Action: Reviewed Famotidine (Pepcid) 20 Mg Tablet, 20 MG PO BID Prescribed by: KASIE HARRIS on 06/27/21 1002 Last Action: Reviewed Hydroxyzine Pamoate (Vistaril) 50 Mg Capsule, 50 MG PO Q6H PRN for AGITATION Prescribed by: ABRAHAM BARBER on 02/19/20 103 Last Action: Reviewed Lisinopril/Hydrochlorothiazide (Lisinopril-Hctz 10-12.5 mg Tab) 1 Each Tablet, 1 EACH PO DAILY Prescribed by: ABRAHAM BARBER on 02/19/20 103 Last Action: Last Taken Edited Metoprolol Succinate (Metoprolol Succinate) 50 Mg Tab.er.24h, 50 MG PO DAILY Prescribed by: KASIE HARRIS on 02/16/212200 Ondansetron (Ondansetron Odt) 4 Mg Tab.rapdis, 4 MG PO Q6H PRN for NAUSEA/VOMITING Prescribed by: NASIM MILLER on 07/07/212049 Pantoprazole Sodium (Pantoprazole Sodium) 40 Mg Tablet.dr, 40 MG PO DAILY Prescribed by: NASIM MILLER on 07/07/212049 Discontinued Medications Crutch (Crutch) 1 Each Each, EACH MC DAILY, (DME) Discontinued Reason: Referral/FU Appt-Addtl Prescribed by: NASIM MILLER on 02/09/192119 Last Action: Discontinued Review of Systems Review of Systems Constitutional: see HPI EENTM: no symptoms reported Respiratory: cough (Chronic); No stridor; wheezing Cardiovascular: see HPI Gastrointestinal: see HPI, abdominal pain (RUQ and epigastric, worse after eating), diarrhea (Loose stools 1-2 a day); No hematemesis; heartburn; No jaundice, No melena; nausea, vomiting Genitourinary: no symptoms reported Musculoskeletal: no symptoms reported Skin: no symptoms reported Psychiatric/Neurological: Anxiety Past Jwxbrfj-Jihjao-Izvugl Hx Patient Social History Tobacco Use?: Yes Tobacco type used: Cigarettes Smoking Status: Current Everyday Smoker Use of E-Cig and/or Vaping dev: No Substance use?: Yes Substance type: Marijuana Alcohol Use?: No Seasonal Allergies Seasonal Allergies: No Past Medical History Surgery/Hospitalization HX: HTN, Morbid Obesity, Anxiety Surgeries: Yes Tonsillectomy Respiratory: No Cardiac: Yes Hypertension Neurological: No Genitourinary: No Gastrointestinal: No Musculoskeletal: Yes Scoliosis Endocrine: No HEENT: No Cancer: No Psychosocial: Yes Anxiety Integumentary: No Blood Disorders: No Physical Exam Vital Signs Vital Signs - First Documented 07/07/21 17:51 Temp 36.5 Pulse 113 Resp 20 B/P (MAP) 162/117 (132) Pulse Ox 98 O2 Delivery Room Air Capillary Refill : Less Than 3 Seconds Height, Weight, BMI Height: 6'1.00" Weight: 375lbs. oz. [id number]; 51.00 BMI Method:Stated General Appearance: No Apparent Distress, Obese HEENT: PERRL/EOMI, Pharynx Normal Neck: Full Range of Motion, Normal Inspection, Non Tender, Supple Respiratory: Chest Non Tender, No Accessory Muscle Use, No Respiratory Distress; No Rhonci, No Stridor; Wheezing (Inspiratory and expiratory wheezing) Cardiovascular: Normal Peripheral Pulses, Tachycardia Gastrointestinal: Normal Bowel Sounds, No Pulsatile Mass, Soft, Tenderness (Epigastric and right upper quadrant) Rectal: Deferred Back: No CVA Tenderness, No Vertebral Tenderness Extremity: Normal Capillary Refill, Normal Inspection, No Pedal Edema Neurologic/Psychiatric: Alert, Oriented x3, No Motor/Sensory Deficits, finance associate II- XII Norm as Tested Skin: Normal Color, Warm/Dry Progress/Results/Core Measures Suspected Sepsis SIRS Temperature: Pulse: 113 Respiratory Rate: 20 Laboratory Tests 07/07/21 18:33: White Blood Count 14.3H Blood Pressure 162 /117 Mean: 132 Laboratory Tests 07/07/21 18:33: Creatinine 0.85, INR Comment 0.9, Platelet Count 255, Total Bilirubin 0.6 Results/Orders Lab Results Laboratory Tests Test 07/07/21 18:25 07/07/21 18:33 Range/Units Urine Color YELLOW Urine Clarity SLIGHTLY CLOUDY Urine pH 5.5 5-9 Urine Specific [place] >=1.030 1.016-1.022 Urine Protein NEGATIVE NEGATIVE Urine Glucose (UA) NEGATIVE NEGATIVE Urine Ketones NEGATIVE NEGATIVE Urine Nitrite NEGATIVE NEGATIVE Urine Bilirubin NEGATIVE NEGATIVE Urine Urobilinogen 0.2 < = 1.0 MG/DL Urine Leukocyte Esterase NEGATIVE NEGATIVE Urine RBC (Auto) NEGATIVE NEGATIVE Urine RBC NONE /HPF Urine WBC RARE /HPF Urine Squamous Epithelial Cells 10-25 H /HPF Urine Crystals NONE /LPF Urine Bacteria TRACE /HPF Urine Casts NONE /LPF Urine Mucus LARGE H /LPF Urine Culture Indicated NO White Blood Count 14.3 H 4.3-11.0 10^3/uL Red Blood Count 5.99 H 4.30-5.52 10^6/uL Hemoglobin 18.1 H 13.3-17.7 g/dL Hematocrit 53 40-54 % Mean Corpuscular Volume 89 80-99 fL Mean Corpuscular Hemoglobin 30 25-34 pg Mean Corpuscular Hemoglobin Concent 34 32-36 g/dL Red Cell Distribution Width 12.9 10.0-14.5 % Platelet Count 255 130-400 10^3/uL Mean Platelet Volume 10.9 9.0-12.2 fL Immature Granulocyte % (Auto) 0 % Neutrophils (%) (Auto) 72 42-75 % Lymphocytes (%) (Auto) 15 12-44 % Monocytes (%) (Auto) 5 0-12 % Eosinophils (%) (Auto) 6 0-10 % Basophils (%) (Auto) 1 0-10 % Neutrophils # (Auto) 10.3 H 1.8-7.8 X 10^3 Lymphocytes # (Auto) 2.2 1.0-4.0 X 10^3 Monocytes # (Auto) 0.7 0.0-1.0 X 10^3 Eosinophils # (Auto) 0.9 H 0.0-0.3 10^3/uL Basophils # (Auto) 0.1 0.0-0.1 10^3/uL Immature Granulocyte # (Auto) 0.0 0.0-0.1 10^3/uL Neutrophils % (Manual) 60 % Lymphocytes % (Manual) 20 % Monocytes % (Manual) 9 % Eosinophils % (Manual) 11 % Prothrombin Time 12.4 12.2-14.7 SEC INR Comment 0.9 0.8-1.4 Activated Partial Thromboplast Time 31 24-35 SEC Sodium Level 134 L 135-145 MMOL/L Potassium Level 4.3 3.6-5.0 MMOL/L Chloride Level 101 98-107 MMOL/L Carbon Dioxide Level 21 21-32 MMOL/L Anion Gap 12 5-14 MMOL/L Blood Urea Nitrogen 14 7-18 MG/DL Creatinine 0.85 0.60-1.30 MG/DL Estimat Glomerular Filtration Rate 104 BUN/Creatinine Ratio 16 Glucose Level 138 H 70-105 MG/DL Calcium Level 10.0 8.5-10.1 MG/DL Corrected Calcium 8.5-10.1 MG/DL Magnesium Level 2.1 1.6-2.4 MG/DL Total Bilirubin 0.6 0.1-1.0 MG/DL Aspartate Amino Transf (AST/SGOT) 22 5-34 U/L Alanine Aminotransferase (ALT/SGPT) 34 0-55 U/L Alkaline Phosphatase 65 40-136 U/L Troponin I < 0.30 <0.30 NG/ML Pro-B-Type Natriuretic Peptide < 5.0 <75.0 PG/ML Total Protein 7.8 6.4-8.2 GM/DL Albumin 4.7 H 3.2-4.5 GM/DL Lipase 24 8-78 U/L My Orders Orders - NASIM MILLER MD Cbc With Automated Diff (07/07/21 18:) Magnesium (07/07/21:) Comprehensive Metabolic Panel (07/07/21 18:22) Protime With Inr (07/07/21 18:) Partial Thromboplastin Time (07/07/21 18:22) Ed Iv/Invasive Line Start (07/07/21 18:22) Lipase (07/07/21 18:22) Troponin I Fs (07/07/21 18:22) Probnp Fs (07/07/21 18:) Ua Culture If Indicated (07/07/21 18:) Ct Abdomen/Pelvis W (07/07/21 18:22) Ns Iv 1000 Ml (Sodium Chloride 0.9%) (07/07/21 18:25) Pantoprazole Injection (Protonix Injecti (07/07/21 18:25) Ondansetron Injection (Zofran Injectio (07/07/21 18:25) Iohexol Injection (Omnipaque 350 Mg/Ml 1 (07/07/21 18:45) Received Contrast (Hold Metformin- Contr (07/07/21 18:45) Sodium Chloride Flush (Catheter Flush Sy (07/07/21 18:45) Ns (Ivpb) (Sodium Chloride 0.9% Ivpb Bag (07/07/21 18:45) Manual Differential (07/07/21 18:33) Rx-Ondansetron Po (Rx-Zofran Po) (07/07/21 20:45) Medications Given in ED Current Medications Medications Dose Ordered Sig/Erika Route Start Time Stop Time Status Last Admin Dose Admin Iohexol 100 ml ONCE ONCE IV 07/07/21 18:45 07/07/21 20:31 DC 07/07/21 19:08 100 ML Ondansetron HCl 4 mg Q6H PRN PO 07/07/21 20:45 07/07/21 20:56 DC 07/07/21 20:55 4 MG Sodium Chloride 10 ml NEEDED PRN IV 07/07/21 18:45 07/07/21 20:56 DC 07/07/21 19:08 10 ML Sodium Chloride 100 ml ONCE ONCE IV 07/07/21 18:45 07/07/21 20:31 DC 07/07/21 19:08 100 ML Vital Signs/I&O 07/07/21 07/07/21 17:51 20:55 Temp 36.5 Pulse 113 100 Resp 20 18 B/P (MAP) 162/117 (132) 153/98 Pulse Ox 98 99 O2 Delivery Room Air Room Air 07/08/21 00:00 Intake Total 1000 ml Balance 1000 ml Capillary Refill : Less Than 3 Seconds Blood Pressure Mean: 132 Progress Note #1: Progress Note Obtain basic labs as well as cardiac enzymes. Check a lipase to evaluate for pancreatitis. Give IV fluids for hydration, Protonix for possible gastritis, Zofran for nausea. Obtain a CT scan to evaluate for issues with the stomach, gallbladder, liver, pancreas, intestines, colitis, diverticulitis. Progress Note #2: Progress Note Labs show mild elevation of WBC count, which may be from hemoconcentration due to his dehydration. Chemistry does not show any acute significant abnormality and has normal Lipase, Cardiac enzymes, Liver function tests. Urine is concentrated with elevated specific gravity. Progress Note #3: Progress Note CT scan shows a small hiatal hernia which may be contributing to his symptoms. Otherwise no acute significant findings to cause his pain. Counseled patient on results and findings. He stated that he was feeling a little bit better. Will continue with proton pump inhibitor and prescribed nausea medicines to help keep her stomach settled. Advised to check back with clinic as well as given phone number for surgeon licensed massage practitioner to see about possibly having an EGD performed to evaluate for ulcers or look at the severity of his hiatal hernia. Counseled that all of his cardiac testing continues to be normal and this still certainly fits more with a GI related source of pain since it is associated with eating food. Diagnostic Imaging Diagonstic Imaging: CT Plain Films/CT/US/NM/MRI: abdomen, pelvis Comments NAME: SAUMYA VALENTINE [facility] REC#: [id number] PT STATUS: REG ER : 1985 PHYSICIAN: NASIM MILLER MD ADMIT DATE: 07/07/21/ER FS Signed Date of Exam:07/07/21 CT ABDOMEN/PELVIS W EXAMINATION: CT abdomen and pelvis with intravenous contrast. TECHNIQUE: Multiple contiguous axial images were obtained through the abdomen and pelvis after the uneventful administration of intravenous contrast. All CT scans use one or more of the following dose optimizing techniques: automated exposure control, MA and/or KvP adjustment based on patient size and exam type or iterative reconstruction. HISTORY: Right upper quadrant pain. Epigastric pain. Nausea and vomiting. COMPARISON: None available. FINDINGS: The heart is unremarkable. The included lung bases are clear. Small hiatal hernia is present. There is hepatic steatosis. No focal hepatic lesion. The gallbladder is nondistended. The portal vein is patent. Nonobstructing calculus is seen in the mid right kidney measuring 0.5 cm. No obstructing calculi or hydronephrosis. No solid renal mass. The spleen, pancreas and adrenal glands have a normal appearance. There is no pathologically enlarged mesenteric or retroperitoneal adenopathy. The bowel loops are nondilated. The appendix is visualized in the right lower quadrant and has a normal appearance. There is no free fluid or free air. No acute osseous abnormalities. Ureters and bladder are grossly normal. There is no free air, loculated collection, or adenopathy in the pelvis. IMPRESSION: 1. Hepatic steatosis. 2. Small hiatal hernia. 3. Nonobstructing calculus in the mid right kidney measuring 0.5 cm. Dictated by: Dictated on workstation # [id number] Dict: 07/07/211914 Trans: 07/07/211918 [facility] [id number] Interpreted by: KIANA MULLER DO Electronically signed by: KIANA MULLER DO 07/07/211918 Departure Impression Primary Impression: Hiatal hernia with GERD Additional Impressions: Epigastric abdominal pain Palpitations Disposition: 01 HOME, SELF-CARE Condition: Stable Departure-Patient Inst. Decision time for Depature: 20:47 Referrals: DEEPAK LA PANKAJ K MD (PCP/Family) Primary Care Physician Patient Instructions: Gastritis ED, Hiatal Hernia (DC), Low Cholesterol, Saturated Fat, and Trans Fat Diet , Nausea and Vomiting, Adult ED, Palpitations ED, Ulcer and Gastritis Diet Add. Discharge Instructions: Take the nausea medicine to help with spasms and nausea. Take the new acid reducing medicine, Protonix or Pantoprazole to help with gastritis and Hiatal Hernia. Follow a low fat bland diet. Check with Dr. French or Dr. La about having a scope to look at lining of esophagus and stomach. All discharge instructions reviewed with patient and/or family. Voiced understanding. Scripts Pantoprazole Sodium (Pantoprazole Sodium) 40 Mg Tablet. 40 MG PO DAILY for Hiatal Hernia/Gastritis for 30 Days, #30 TAB 0 Refills Prov: NASIM MILLER MD 07/07/21 Ondansetron (Ondansetron Odt) 4 Mg Tab.rapdis 4 MG PO Q6H PRN for NAUSEA/VOMITING for 7 Days, #28 TAB 0 Refills Prov: NASIM MILLER MD 07/07/21 NASIM MILLER MD Jul 07, 2021 18:31
[2021-07-07 18:39] LABS: HEMATOCRIT 53 % (40-54); HEMOGLOBIN 18.1 g/dL (13.3-17.7); MEAN CORPUSCULAR HEMOGLOBIN 30 pg (25-34); MEAN CORPUSCULAR HGB CONC 34 g/dL (32-36); MEAN CORPUSCULAR VOLUME 89 fL (80-99); WHITE BLOOD COUNT 14.3 10^3/uL (4.3-11.0)
[2021-07-07 18:40] LABS: BASOPHILS # (AUTO) 0.1 10^3/uL (0.0-0.1); BASOPHILS % (AUTO) 1 % (0-10); EOSINOPHILS # (AUTO) 0.9 10^3/uL (0.0-0.3); EOSINOPHILS % (AUTO) 6 % (0-10); LYMPHOCYTES # (AUTO) 2.2 X 10^3 (1.0-4.0); LYMPHOCYTES % (AUTO) 15 % (12-44); MEAN PLATELET VOLUME 10.9 fL (9.0-12.2); MONOCYTES # (AUTO) 0.7 X 10^3 (0.0-1.0); MONOCYTES % (AUTO) 5 % (0-12); NEUTROPHILS # (AUTO) 10.3 X 10^3 (1.8-7.8); NEUTROPHILS % (AUTO) 72 % (42-75); PLATELET COUNT 255 10^3/uL (130-400)
[2021-07-07] MEDS ORDERED: CATHETER FLUSH 10 ML SYR IV PRN (18:45)
[2021-07-07] MEDS ORDERED: HOLD METFORMIN - RECEIVED CONTRAST 20 ML VIAL IV SCH (18:45)
[2021-07-07] MEDS ORDERED: IOHEXOL 350 MG/ML 100 ML (OMNIPAQUE 350) VIAL IV ONE (18:45)
[2021-07-07] MEDS ORDERED: NS 100 ML (IVPB) BAG IV ONE (18:45)
[2021-07-07 18:51] LABS: INR 0.9 (0.8-1.4); PROTHROMBIN TIME PATIENT 12.4 SEC (12.2-14.7)
[2021-07-07 19:00] LABS: ALANINE AMINOTRANSFERASE 34 U/L (0-55); ALBUMIN 4.7 GM/DL (3.2-4.5); ALKALINE PHOSPHATASE 65 U/L (40-136); BILIRUBIN,TOTAL 0.6 MG/DL (0.1-1.0); BUN/CREATININE RATIO 16; CARBON DIOXIDE 21 MMOL/L (21-32); CHLORIDE 101 MMOL/L (98-107); CREATININE SERUM 0.85 MG/DL (0.60-1.30); GFR ESTIMATED 104; GLUCOSE 138 MG/DL (70-105); LIPASE 24 U/L (8-78); MAGNESIUM 2.1 MG/DL (1.6-2.4); POTASSIUM 4.3 MMOL/L (3.6-5.0); SODIUM 134 MMOL/L (135-145); TOTAL PROTEIN 7.8 GM/DL (6.4-8.2)
[2021-07-07 19:07] LABS: EOSINOPHILS % (MANUAL) 11 %; LYMPHOCYTES % (MANUAL) 20 %; MONOCYTES % (MANUAL) 9 %; NEUTROPHILS % (MANUAL) 60 %
--- NOTE | 2021-07-07 19:19 | Diagnostic Imaging Report ---
EXAMINATION: CT abdomen and pelvis with intravenous contrast. TECHNIQUE: Multiple contiguous axial images were obtained through the abdomen and pelvis after the uneventful administration of intravenous contrast. All CT scans use one or more of the following dose optimizing techniques: automated exposure control, MA and/or KvP adjustment based on patient size and exam type or iterative reconstruction. HISTORY: Right upper quadrant pain. Epigastric pain. Nausea and vomiting. COMPARISON: None available. FINDINGS: The heart is unremarkable. The included lung bases are clear. Small hiatal hernia is present. There is hepatic steatosis. No focal hepatic lesion. The gallbladder is nondistended. The portal vein is patent. Nonobstructing calculus is seen in the mid right kidney measuring 0.5 cm. No obstructing calculi or hydronephrosis. No solid renal mass. The spleen, pancreas and adrenal glands have a normal appearance. There is no pathologically enlarged mesenteric or retroperitoneal adenopathy. The bowel loops are nondilated. The appendix is visualized in the right lower quadrant and has a normal appearance. There is no free fluid or free air. No acute osseous abnormalities. Ureters and bladder are grossly normal. There is no free air, loculated collection, or adenopathy in the pelvis. IMPRESSION: 1. Hepatic steatosis. 2. Small hiatal hernia. 3. Nonobstructing calculus in the mid right kidney measuring 0.5 cm. Dictated by: Dictated on workstation # [id number]
[2021-07-07] MEDS ORDERED: RX-ONDANSETRON 4 MG ODT (ZOFRAN) PPK #4 PO PRN (20:45)
[2021-07-07] MEDS ORDERED: ONDA4TAB11 PO (20:50)
[2021-07-07] MEDS ORDERED: PANT40TA52 PO (20:50)
[2021-07-07 20:55] VITALS: BP 153/98
== END 2021-07-07 20:55 | disposition home or self-care (01) ==
LOC: EDUNIT# 17:44 → ER FS 17:45
DX: K44.9 Diaphragmatic hernia without obstruction or gangrene (principal); K21.9 Gastro-esophageal reflux disease without esophagitis; R00.2 Palpitations; E66.9 Obesity, unspecified; E66.01 Morbid (severe) obesity due to excess calories; I10 Essential (primary) hypertension; F41.9 Anxiety disorder, unspecified; F17.210 Nicotine dependence, cigarettes, uncomplicated; Z68.43 Body mass index [BMI] 50.0-59.9, adult; Z79.82 Long term (current) use of aspirin; Z79.899 Other long term (current) drug therapy
CPT/HCPCS: 36415; 74177; 80053; 81000; 83690; 83735; 83880; 84484; 85007; 85027; 85610; 85730

== ENCOUNTER → 2021-08-02 | Outpatient (CLI) | payer MEDICAID ==
[~2021-08-02] MED LIST changes: +ONDA4TAB11 PO; +PANT40TA52 PO
--- NOTE | 2021-08-02 13:51 | Diagnostic Imaging Report ---
PROCEDURE: CT head without contrast. TECHNIQUE: Multiple contiguous axial images were obtained through the brain without the use of intravenous contrast. Auto Exposure Controls were utilized during the CT exam to meet ALARA standards for radiation dose reduction. INDICATION: Intermittent headache. FINDINGS: Ventricles and sulci are within normal limits for size. No hemorrhage is identified. There is no abnormal mass effect or shift of midline structures. Calvarium is intact and the visualized paranasal sinuses are clear. There is, however abnormal increased density within the right middle ear cavity with extension into right mastoid air cells. Several posterior left mastoid air cells are also opacified. IMPRESSION: No acute intracranial abnormality is detected. Appears to be right otomastoiditis and clinical correlation is recommended. There may be mild involvement of the posterior left mastoid air cells as well. Dictated by: Dictated on workstation # [id number]
== END ==
LOC: RAD FS 13:14
PROVIDERS: ATTEND Family Medicine
DX: G44.52 New daily persistent headache (NDPH) (principal)
CPT/HCPCS: 70450

== ENCOUNTER 2021-08-15 13:04 | Emergency (ER) | payer MEDICAID ==
[~2021-08-15] VITALS: Ht 185 cm; Wt 181.0 kg
[2021-08-15] MEDS ORDERED: IBUPROFEN 600 MG (MOTRIN) TAB PO ONE (13:15)
[2021-08-15 13:20] VITALS: BP 198/92
--- NOTE | 2021-08-15 13:24 | ED General ---
General Chief Complaint: Ear Problems Stated Complaint: RT EAR PAIN Nursing Triage Note: PT REPORTS HE HAD TUBES PLACED BY A DR. PONCE IN [place] LAST FRIDAY, WOKE UP WITH EAR PAIN BILAT TODAY. PT DID NOT CALL THE SURGEON. PT IS ON ANTIBIOTICS POST OP. Source of Information: Patient History of Present Illness Date Seen by Provider: Aug 15, 2021 Time Seen by Provider: 13:10 Initial Comments Patient is a 35-year-old male who had a tympanostomy tube placed in his right ear 5 days ago presents with right ear pain upon waking from sleep. There is no drainage, swelling or redness. Pain is dull rated moderate to severe is nonradiating. No medications taken prior to ED arrival. No other symptoms or complaints Timing/Duration: 1-3 Hours Severity: Moderate Modifying Factors: improves with Other Associated Systoms: Other Allergies and Home Medications Allergies Coded Allergies: amoxicillin (Verified Allergy, Unknown, 02/16/21) Patient Home Medication List Home Medication List Reviewed: Yes Aspirin (Aspirin EC) 81 Mg Tablet., 81 MG PO DAILY Prescribed by: KASIE HARRIS on 06/27/21 1002 Famotidine (Pepcid) 20 Mg Tablet, 20 MG PO BID Prescribed by: KASIE HARRIS on 06/27/21 1002 Hydroxyzine Pamoate (Vistaril) 50 Mg Capsule, 50 MG PO Q6H PRN for AGITATION Prescribed by: ABRAHAM BARBER on 02/19/20 103 Lisinopril/Hydrochlorothiazide (Lisinopril-Hctz 10-12.5 mg Tab) 1 Each Tablet, 1 EACH PO DAILY Prescribed by: ABRAHAM BARBER on 02/19/20 1034 Metoprolol Succinate (Metoprolol Succinate) 50 Mg Tab.er.24h, 50 MG PO DAILY Prescribed by: KASIE HARRIS on 02/16/212200 Ondansetron (Ondansetron Odt) 4 Mg Tab.rapdis, 4 MG PO Q6H PRN for NAUSEA/VOMITING Prescribed by: NASIM MILLER on 07/07/212049 Pantoprazole Sodium (Pantoprazole Sodium) 40 Mg Tablet., 40 MG PO DAILY Prescribed by: NASIM MILLER on 07/07/212049 Review of Systems Review of Systems Constitutional: see HPI EENTM: see HPI Respiratory: see HPI Cardiovascular: see HPI Gastrointestinal: see HPI Genitourinary: see HPI Musculoskeletal: see HPI Skin: see HPI Psychiatric/Neurological: See HPI Hematologic/Lymphatic: See HPI Immunological/Allergic: see HPI Past Gfpdule-Teznhe-Kocvum Hx Patient Social History Tobacco Use?: Yes Use of E-Cig and/or Vaping dev: No Substance use?: No Alcohol Use?: No Pt feels they are or have been: No Seasonal Allergies Seasonal Allergies: No Past Medical History Surgery/Hospitalization HX: HTN, Morbid Obesity, Anxiety Surgeries: Yes Tonsillectomy Respiratory: No Cardiac: Yes Hypertension Neurological: No Genitourinary: No Gastrointestinal: No Musculoskeletal: Yes Scoliosis Endocrine: No HEENT: No Cancer: No Psychosocial: Yes Anxiety Integumentary: No Blood Disorders: No Physical Exam Vital Signs Vital Signs - First Documented 08/15/21 13:11 Temp 36.7 Pulse 94 Resp 18 B/P (MAP) 198/92 (127) Pulse Ox 97 O2 Delivery Room Air Capillary Refill : Less Than 3 Seconds Height, Weight, BMI Height: 6'1.00" Weight: 375lbs. oz. 170.316287nb; 52.00 BMI Method:Stated General Appearance: Anxious Eyes: Bilateral Eye Normal Inspection, Bilateral Eye PERRL, Bilateral Eye EOMI HEENT: PERRL/EOMI, Normal ENT Inspection, Other (Right TM, T-tube in place, no or otorrhea, bleeding swelling or redness. External auditory canal tenderness on exam.) Neck: Non Tender, Supple Focused Exam Sepsis Stage: Ruled Out Progress/Results/Core Measures Suspected Sepsis SIRS Temperature: Pulse: 94 Respiratory Rate: 18 Blood Pressure 198 /92 Mean: 127 Results/Orders My Orders Orders - LORE HOWE DO Ibuprofen Tablet (Motrin Tablet) (08/15/21 13:15) Vital Signs/I&O 08/15/21 13:11 Temp 36.7 Pulse 94 Resp 18 B/P (MAP) 198/92 (127) Pulse Ox 97 O2 Delivery Room Air Capillary Refill : Less Than 3 Seconds Blood Pressure Mean: 127 Departure Impression Primary Impression: Otalgia of right ear Disposition: 01 HOME, SELF-CARE Condition: Stable Departure-Patient Inst. Decision time for Depature: 13:28 Referrals: ISRA VALLE MD (PCP/Family) Primary Care Physician Patient Instructions: Acute Pain, Adult Add. Discharge Instructions: Please contact your ENT surgeon this afternoon to provide an update of your condition and for additional recommendations. All discharge instructions reviewed with patient and/or family. Voiced understanding. LORE HOWE DO Aug 15, 2021 13:24
== END 2021-08-15 13:34 | disposition home or self-care (01) ==
LOC: EDUNIT# 13:04 → ER FS 13:05
DX: H92.01 Otalgia, right ear (principal); I10 Essential (primary) hypertension; E66.01 Morbid (severe) obesity due to excess calories; F41.9 Anxiety disorder, unspecified; Z72.0 Tobacco use; Z68.43 Body mass index [BMI] 50.0-59.9, adult; Z79.82 Long term (current) use of aspirin; Z79.899 Other long term (current) drug therapy
CPT/HCPCS: 99283

== ENCOUNTER → 2021-08-23 | Outpatient (CLI) | payer MEDICAID ==
[~2021-08-23] VITALS: Ht 185 cm; Wt 173.0 kg
[~2021-08-23] MED LIST changes: +CATHETER FLUSH 10 ML SYR IV PRN
[2021-08-23 13:00] VITALS: BP 149/74
== END ==
LOC: CARD 11:00
PROVIDERS: ATTEND Internal Medicine Cardiovascular Disease
DX: R94.31 Abnormal electrocardiogram [ECG] [EKG] (principal); R07.9 Chest pain, unspecified
CPT/HCPCS: 78452; 93017; 93306; A9502

== ENCOUNTER → 2021-08-23 | Outpatient (CLI) | payer MEDICAID ==
[~2021-08-23] MED LIST changes: -CATHETER FLUSH 10 ML SYR IV PRN
--- NOTE | 2021-08-24 08:20 | NUCLEAR STRESS TEST ---
TREADMILL NUCLEAR STRESS TEST Date of procedure: 08/23/2021. Primary care provider: James French MD. Admitting physician: John Adames Jr., MD. INDICATION: Abnormal ECG. BASELINE ELECTROCARDIOGRAM: Sinus rhythm with nonspecific intraventricular conduction delay and nonspecific ST changes in the lateral leads. STRESS TEST PROCEDURE: The patient was exercised for a total of 7 minutes and 10 seconds of the standard Danilo protocol achieving a maximum MET level of 7.1. The resting heart rate was 76 bpm and the peak heart rate was 161 bpm, which represents 86% of the maximum predicted heart rate. The resting blood pressure was 151/81 mmHg and the peak blood pressure was 226/82 mmHg. This represents a normal heart rate and a hypertensive blood pressure response to exercise with resting hypertension. The test was stopped due to fatigue. There was no chest discomfort during the test. There were isolated premature ventricular complexes during the test. There were no significant stress induced electrocardiogram changes. The patient exhibited fair exercise capacity for age. NUCLEAR PROCEDURE: The patient was administered 11 mCi of intravenous technetium 99m Tetrofosmin at rest for the rest images. The patient was subsequently a dministered 29.1 mCi of intravenous technetium 99 M Tetrofosmin at peak stress for the stress images. Following an appropriate wait after each injection, imaging was obtained. The images were subsequently processed and reformatted in the usual views. Gated imaging was obtained. The image quality was adequate but with a fair amount of gastrointestinal attenuation artifact. CT attenuation correction was used as a adjunct to standard imaging. Both the corrected and uncorrected images were reviewed for interpretation. NUCLEAR RESULTS: There was normal myocardial perfusion in all segments without evidence of infarction or ischemia. There was normal left ventricular chamber size with an end-diastolic volume of 75 mL and an end-systolic volume of 19 mL. There was no evidence of transient ischemic dilatation. The TID ratio was 0.77. There was normal wall motion in all segments with a calculated ejection fraction of 74%. IMPRESSION: 1. Normal heart rate and a hypertensive blood pressure response to exercise with resting hypertension. 2. There was no chest discomfort during the test. 3. There were isolated premature ventricular complexes during the test. 4. There were no electrocardiogram changes during the test. 5. The patient exhibited fair exercise capacity for age at 7 minutes and 10 seconds of the Danilo protocol. 6. There was normal myocardial perfusion in all segments without evidence of infarction or ischemia. 8. There was normal wall motion in all segments with a calculated ejection fraction of 74%. Certain portions of this document may have been dictated utilizing voice recognition technology. Inherent to this technology, typographical and grammatical errors may exist. As much as I am diligent to identify and correct these mistakes, some errors may remain in the document. JOHN ADAMES JR, MD Aug 24, 2021 08:20
== END ==
LOC: CARD 10:58
PROVIDERS: ATTEND Internal Medicine Cardiovascular Disease
DX: R94.31 Abnormal electrocardiogram [ECG] [EKG] (principal)

== ENCOUNTER 2021-09-05 13:00 | Outpatient (RCR) | payer MEDICAID ==
[~2021-09-05 13:00] MED LIST changes: -LISI1TAB29 PO; +LISI1TAB44 PO
--- NOTE | 2021-09-24 13:25 | 30 Day Event Recorder ---
30-DAY EVENT RECORDER 7 DAY EXTENDED HOLTER MONITOR DATE OF PROCEDURE: 09/05/2021-09/11/2021. INDICATION: Palpitations. PROCEDURE: A 7-day extended Holter monitor was obtained for a total of 6 days and 7 hours. The study quality is adequate. RESULTS: 1. Baseline sinus rhythm with an average heart rate of 80 bpm, ranging from 41- 142 bpm. 2. There were rare (5), isolated premature supraventricular complexes. 3. There was no ventricular ectopy. 4. There were no pauses exceeding 2 seconds in duration. 5. There were 9 patient events that correlated to 8 episodes of sinus rhythm and 1 episode of sinus tachycardia with heart rates ranging from 73-132 bpm. IMPRESSION: 1. This is a 7-day extended Holter monitor report. 2. Baseline sinus rhythm with an average heart rate of 80 bpm, ranging from 41- 142 bpm with rare, isolated premature supraventricular complexes. 3. There were 9 patient events that correlated to 8 episodes of sinus rhythm and 1 episode of sinus tachycardia with heart rates ranging from 73-132 bpm. Certain portions of this document may have been dictated utilizing voice recognition technology. Inherent to this technology, typographical and grammatical errors may exist. As much as I am diligent to identify and correct these mistakes, some errors may remain in the document. FARIHA DAWN JR, MD Sep 24, 2021 13:25
== END 2021-10-26 | disposition home or self-care (01) ==
LOC: CARD 13:00
PROVIDERS: ATTEND Internal Medicine Cardiovascular Disease
DX: R00.2 Palpitations (principal)
CPT/HCPCS: 93242

== ENCOUNTER 2021-10-10 22:21 | Emergency (ER) | payer MEDICAID ==
[~2021-10-10] VITALS: Ht 182 cm; Wt 184.0 kg
--- NOTE | 2021-10-10 22:27 | ED Integumentary General ---
General Stated Complaint: LT LEG BURN Source: patient History of Present Illness Date Seen by Provider: Oct 10, 2021 Time Seen by Provider: 22:24 Initial Comments 35-year-old male presenting with complaints of spilling hot soup and water on his left leg and it spread back in the chair he was sitting in to reach his buttocks as well. he immediately got up out of the chair and took his clothes off that had the hot water on them. He then went and got in the shower and took a cool shower. He was continuing to have a burning pain equivalent to the severe sunburn. His mom especially encouraged him to come to the emergency department to be evaluated. Patient states he was not wanting to take anything for pain. He personally had not planned on coming to the emergency department but again his mother and family had continued to ask him about it and essentially forced him to come to the ED to be evaluated. Timing/Duration: just prior to arrival Severity: moderate Location: extremities (Left lower leg), genitalia (Buttocks) Possible Cause: foods (Hot soup) Associated Symptoms: No blisters, No change in skin texture, No edema, No fever, No flushing, No headache, No hives, No jaundice, No malaise, No nasal congestion, No numbness, No pallor, No paresthesia, No petechiae, No rash, No sore throat, No swelling/mass/lumps, No tingling Allergies and Home Medications Allergies Coded Allergies: amoxicillin (Verified Allergy, Unknown, 02/16/21) Patient Home Medication List Home Medication List Reviewed: Yes Aspirin (Aspirin EC) 81 Mg Tablet.dr, 81 MG PO DAILY Prescribed by: KASIE HARRIS on 06/27/21 1002 Famotidine (Pepcid) 20 Mg Tablet, 20 MG PO BID Prescribed by: KASIE CASTANEDASTINE on 06/27/21 1002 Hydroxyzine Pamoate (Vistaril) 50 Mg Capsule, 50 MG PO Q6H PRN for AGITATION Prescribed by: ABRAHAM BARBER on 02/19/20 1034 Lisinopril/Hydrochlorothiazide (Lisinopril-Hctz 10-12.5 mg Tab) 1 Each Tablet, 1 EACH PO DAILY Prescribed by: ABRAHAM BARBER on 02/19/20 1034 Metoprolol Succinate (Metoprolol Succinate) 50 Mg Tab.er.24h, 50 MG PO DAILY Prescribed by: KASIE HARRIS on 02/16/212200 Ondansetron (Ondansetron Odt) 4 Mg Tab.rapdis, 4 MG PO Q6H PRN for NAUSEA/V OMITING Prescribed by: NASIM MILLER on 07/07/212049 Pantoprazole Sodium (Pantoprazole Sodium) 40 Mg Tablet.dr, 40 MG PO DAILY Prescribed by: NASIM MILLER on 07/07/212049 Review of Systems Review of Systems Constitutional: No chills, No fever EENTM: no symptoms reported Respiratory: no symptoms reported Gastrointestinal: no symptoms reported Genitourinary: no symptoms reported Musculoskeletal: no symptoms reported Skin: No change in color; other (Tender to palpation on left lower leg medial aspect from the knee down towards his ankle. There is no erythema noted. Burning sensation to his lower buttocks where he has some redness from the burn) Psychiatric/Neurological: Denies Numbness, Denies Paresthesia Past Cdhuwhw-Bmdyzx-Rnvdfw Hx Seasonal Allergies Seasonal Allergies: No Past Medical History Surgery/Hospitalization HX: HTN, Morbid Obesity, Anxiety Surgeries: Yes Tonsillectomy Respiratory: No Cardiac: Yes Hypertension Neurological: No Genitourinary: No Gastrointestinal: No Musculoskeletal: Yes Scoliosis Endocrine: No HEENT: No Cancer: No Psychosocial: Yes Anxiety Integumentary: No Blood Disorders: No Physical Exam Vital Signs Vital Signs - First Documented 10/10/21 22:25 Temp 36.4 Pulse 110 Resp 20 B/P (MAP) 177/113 (134) Pulse Ox 96 O2 Delivery Room Air Capillary Refill : General Appearance: WD/WN, no apparent distress, obese Cardiovascular: normal peripheral pulses Extremities: normal range of motion, normal capillary refill, other (Tenderness to palpation medial aspect of left lower leg) Neurologic/Psychiatric: hoop riveter II-XII nml as tested, alert, oriented x 3 Skin: normal color, warm/dry Skin Problem Location: lower extremities (Left lower leg on the medial aspect), other (Lower aspect of the buttocks) Skin Problem Character: erythema (Mild erythema to the lower aspect of the buttocks) Progress/Results/Core Measures Results/Orders My Orders Orders - NASIM MILLER MD Acetaminophen Tablet (Tylenol Tablet) (10/10/21 22:45) Bacitracin Ointment (Bacitracin Ointment (10/10/21 22:45) Wound Dressing-Ed (10/10/21 22:45) Vital Signs/I&O 10/10/21 10/10/21 22:25 22:58 Temp 36.4 36.4 Pulse 110 110 Resp 20 20 B/P (MAP) 177/113 (134) 177/113 Pulse Ox 96 96 O2 Delivery Room Air Room Air Progress Progress Note : Progress Note As patient has no blisters and no loss of blanching to the skin on his lower leg or buttocks this appears to be more of a first-degree type burn. He was agreeable to taking acetaminophen for pain. Will apply a thin layer of antibiotic ointment and a nonstick dressing to help keep things from rubbing against the burn. Counseled on follow-up and return precautions. Counseled on management of burn at home. Departure Impression Primary Impression: Burn of first degree of left lower leg, initial encounter Additional Impression: Burn of first degree of buttock, initial encounter Disposition: 01 HOME, SELF-CARE Condition: Stable Departure-Patient Inst. Decision time for Depature: 22:52 Referrals: ISRA VALLE MD (PCP/Family) Primary Care Physician Patient Instructions: Minor Skin Lamb ED Add. Discharge Instructions: Keep the areas of burn clean with mild soap and water. Apply thin layer of antibiotic ointment twice a day for the next several days. If you needed additional pain control you can take acetaminophen and ibuprofen as needed. Check back through the clinic for continued concerns. Images Full Body/Extremities Full 1 - Tenderness (Complaints or tenderness to palpation or even light touch on the left lower leg medial aspect from just above the knee down) 2 - Tenderness (Tender to palpation and faint erythema to the area. There is no blisters) NASIM MILLER MD Oct 10, 2021 22:27
[2021-10-10] MEDS ORDERED: BACITRACIN OINTMENT 28 GM TUBE TOP STA (22:45)
[2021-10-10] MEDS ORDERED: ACETAMINOPHEN 500 MG TAB (TYLENOL) PO STA (22:45)
[2021-10-10 22:58] VITALS: BP 177/113
== END 2021-10-10 22:58 | disposition home or self-care (01) ==
LOC: EDUNIT# 22:21 → ER FS 22:22
DX: T24.132A Burn of first degree of left lower leg, initial encounter (principal); T21.15XA Burn of first degree of buttock, initial encounter; I10 Essential (primary) hypertension; F41.9 Anxiety disorder, unspecified; E66.01 Morbid (severe) obesity due to excess calories; Z79.82 Long term (current) use of aspirin; Z79.899 Other long term (current) drug therapy; X11.1XXA Contact with running hot water, initial encounter; X10.1XXA Contact with hot food, initial encounter
CPT/HCPCS: 99283

== ENCOUNTER 2021-11-06 05:50 | Emergency (ER) | payer MEDICAID ==
[~2021-11-06] VITALS: Ht 185 cm; Wt 181.0 kg
[2021-11-06] MEDS ORDERED: ONDANSETRON 4 MG/2 ML (SDV) Z0FRAN IVP ONE (06:15)
[2021-11-06] MEDS ORDERED: LACTATED RINGERS 1,000 ML IV STA (06:15)
--- NOTE | 2021-11-06 06:22 | ED General ---
General Chief Complaint: Abdominal/GI Problems Stated Complaint: NAUSEA/DIZZINESS Nursing Triage Note: Pt arrives by self to ED w/ c/o nausea and dizziness that started an hour ago. Denies pain, but stated that he did have emesis x 1 at approximately midnight. (JOSE GOMEZ DO) History of Present Illness Date Seen by Provider: Nov 06, 2021 Time Seen by Provider: 06:10 Initial Comments 35-year-old male arrives with complaints of some nausea and dizziness that sta rted about an hour ago. He reports that around midnight he did have 1 episode of emesis. He denies any chest pain, shortness of breath, fever, chills, abdominal pain. Patient reports chronic cough because he smokes. He does report he has history of high blood pressure and anxiety. He denies any known sick contacts. Patient has had recurrent nausea and dizziness. Patient had cardiac evaluation in July 2021 with a negative stress echo and negative Holter monitor x7 days (JOSE GOMEZ DO) Allergies and Home Medications Allergies Coded Allergies: amoxicillin (Verified Allergy, Unknown, 02/16/21) Patient Home Medication List Home Medication List Reviewed: Yes (JOSE GOMEZ DO) Aspirin (Aspirin EC) 81 Mg Tablet.dr, 81 MG PO DAILY Prescribed by: KASIE HARRIS on 06/27/21 1002 Famotidine (Pepcid) 20 Mg Tablet, 20 MG PO BID Prescribed by: KASIE HARRIS on 06/27/21 1002 Hydroxyzine Pamoate (Vistaril) 50 Mg Capsule, 50 MG PO Q6H PRN for AGITATION Prescribed by: ABRAHAM BARBER on 02/19/20 103 Lisinopril/Hydrochlorothiazide (Lisinopril-Hctz 10-12.5 mg Tab) 1 Each Tablet, 1 EACH PO DAILY Prescribed by: ABRAHAM BARBER on 02/19/20 1034 Metoprolol Succinate (Metoprolol Succinate) 50 Mg Tab.er.24h, 50 MG PO DAILY Prescribed by: KASIE HARRIS on 02/16/212200 Ondansetron (Ondansetron Odt) 4 Mg Tab.rapdis, 4 MG PO Q6H PRN for NAUSEA/V OMITING Prescribed by: NASIM MILLER on 07/07/212049 Pantoprazole Sodium (Pantoprazole Sodium) 40 Mg Tablet., 40 MG PO DAILY Prescribed by: NASIM MILLER on 07/07/212049 Review of Systems Review of Systems Constitutional: No chills; dizziness; No fever Respiratory: cough (chronic ); No short of breath Cardiovascular: No chest pain, No palpitations Gastrointestinal: No abdominal pain; nausea, vomiting (1 episode ) Musculoskeletal: no symptoms reported Skin: no symptoms reported Psychiatric/Neurological: Anxiety Hematologic/Lymphatic: No Symptoms Reported (JOSE GOMEZ DO) Past Cuyphxh-Qkzylh-Rutanp Hx Patient Social History Tobacco Use?: Yes Tobacco type used: Cigarettes Smoking Status: Current Everyday Smoker Substance use?: Yes Substance type: Marijuana Alcohol Use?: No (JOSE GOMEZ DO) Immunizations Up To Date Influenza Vaccine Up-to-Date: No; Not Current First/Initial COVID19 Vaccinat: Unvaccinated (JOSE GOMEZ DO) Seasonal Allergies Seasonal Allergies: No (JOSE GOMEZ DO) Past Medical History Surgery/Hospitalization HX: HTN, Morbid Obesity, Anxiety Surgeries: Yes Tonsillectomy Respiratory: No Cardiac: Yes Hypertension Neurological: No Genitourinary: No Gastrointestinal: No Musculoskeletal: Yes Scoliosis Endocrine: No HEENT: No Cancer: No Psychosocial: Yes Anxiety Integumentary: No Blood Disorders: No (JOSE GOMEZ DO) Physical Exam Vital Signs Vital Signs - First Documented 11/06/21 06:09 Temp 36.8 Pulse 100 Resp 20 B/P (MAP) 142/98 (113) O2 Delivery Room Air (UZMA CARD MD) Vital Signs Capillary Refill : Less Than 3 Seconds (JOSE GOMEZ DO) Height, Weight, BMI Height: 6'1.00" Weight: 375lbs. oz. [id number]; 52.00 BMI Method:Stated General Appearance: No Apparent Distress, Obese Respiratory: Chest Non Tender, Lungs Clear, Normal Breath Sounds Cardiovascular: Regular Rate, Rhythm, No Edema Extremity: Normal Capillary Refill, Normal Range of Motion Neurologic/Psychiatric: Alert, Oriented x3, No Motor/Sensory Deficits Skin: Normal Color, Warm/Dry (JOSE GOMEZ DO) Progress/Results/Core Measures Suspected Sepsis SIRS Temperature: Pulse: 100 Respiratory Rate: 20 Blood Pressure 142 /98 Mean: 113 (JOSE GOMEZ DO) Results/Orders Lab Results Laboratory Tests Test 11/06/21 06:40 11/06/21 06:45 Range/Units White Blood Count 12.6 H 4.3-11.0 10^3/uL Red Blood Count 5.62 H 4.30-5.52 10^6/uL Hemoglobin 16.5 13.3-17.7 g/dL Hematocrit 49 40-54 % Mean Corpuscular Volume 87 80-99 fL Mean Corpuscular Hemoglobin 29 25-34 pg Mean Corpuscular Hemoglobin Concent 34 32-36 g/dL Red Cell Distribution Width 13.6 10.0-14.5 % Platelet Count 173 130-400 10^3/uL Mean Platelet Volume 11.8 9.0-12.2 fL Immature Granulocyte % (Auto) 0 % Neutrophils (%) (Auto) 38 L 42-75 % Lymphocytes (%) (Auto) 18 12-44 % Monocytes (%) (Auto) 5 0-12 % Eosinophils (%) (Auto) 39 H 0-10 % Basophils (%) (Auto) 1 0-10 % Neutrophils # (Auto) 4.8 1.8-7.8 X 10^3 Lymphocytes # (Auto) 2.3 1.0-4.0 X 10^3 Monocytes # (Auto) 0.6 0.0-1.0 X 10^3 Eosinophils # (Auto) 4.8 H 0.0-0.3 10^3/uL Basophils # (Auto) 0.1 0.0-0.1 10^3/uL Immature Granulocyte # (Auto) 0.0 0.0-0.1 10^3/uL Neutrophils % (Manual) 40 % Lymphocytes % (Manual) 8 % Monocytes % (Manual) 4 % Eosinophils % (Manual) 36 % Basophils % (Manual) 1 % Band Neutrophils 3 % Atypical Lymphocytes 8 % Platelet Estimate NORMAL Blood Morphology Comment NORMAL Sodium Level 135 135-145 MMOL/L Potassium Level 3.9 3.6-5.0 MMOL/L Chloride Level 102 98-107 MMOL/L Carbon Dioxide Level 23 21-32 MMOL/L Anion Gap 10 5-14 MMOL/L Blood Urea Nitrogen 19 H 7-18 MG/DL Creatinine 1.38 H 0.60-1.30 MG/DL Estimat Glomerular Filtration Rate 59 BUN/Creatinine Ratio 14 Glucose Level 121 H 70-105 MG/DL Calcium Level 9.0 8.5-10.1 MG/DL Corrected Calcium 8.9 8.5-10.1 MG/DL Total Bilirubin 0.5 0.1-1.0 MG/DL Aspartate Amino Transf (AST/SGOT) 18 5-34 U/L Alanine Aminotransferase (ALT/SGPT) 28 0-55 U/L Alkaline Phosphatase 69 40-136 U/L Troponin I < 0.30 <0.30 NG/ML C-Reactive Protein 0.98 H <0.50 MG/DL Total Protein 6.7 6.4-8.2 GM/DL Albumin 4.1 3.2-4.5 GM/DL Lipase 31 8-78 U/L Influenza Type A Antigen NEGATIVE NEGATIVE Influenza Type B Antigen NEGATIVE NEGATIVE (UZAM CARD MD) My Orders Orders - UZMA CARD MD Lidocaine 2% Viscous 15 Ml (Xylocaine Vi (11/06/21 08:00) Antacid Suspension (Mylanta Suspension (11/06/21 08:00) (UZMA CARD MD) Medications Given in ED Current Medications Medications Dose Ordered Sig/Erika Route Start Time Stop Time Status Last Admin Dose Admin Ondansetron HCl 4 mg ONCE ONCE IVP 11/06/21 06:15 11/06/21 06:19 DC 11/06/21 06:42 4 MG (UZMA CARD MD) Vital Signs/I&O 11/06/21 06:09 Temp 36.8 Pulse 100 Resp 20 B/P (MAP) 142/98 (113) O2 Delivery Room Air (UZMA CARD MD) Vital Signs/I&O Capillary Refill : Less Than 3 Seconds (JOSE GOMEZ DO) Blood Pressure Mean: 113 Progress Note : Progress Note 0700: Assumed care of the patient from Dr. Gomez pending labs. Overall doing better. 0720: I have reevaluated the patient. He states he is overall doing better. He has normal saline running which we will continue and labs are still pending. He has been offered and accepted a GI cocktail in the past which is helped with his hernia and reflux issues which does seem to derive some of this problem sometimes. He has declined that right now but we will continue to monitor. He states overall he is feeling better. 0750: States he had a little bit of nausea happen again so we will go ahead and do the GI cocktail. Labs reviewed and do not show any significant abnormalities other than he appears to be slightly dry and serum creatinine is slightly elevated. Fluids will help with this. We have ordered a GI cocktail now. I have reviewed his previous history including recent stress test, echo and Holter monitor results. No acute findings on those. 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 Discharged home with return precautions. Patient verbalized understanding of instructions and agreement with plan. (UZMA CARD MD) ECG Initial ECG Impression Date: Nov 06, 2021 Initial ECG Impression Time: 06:26 Initial ECG Rate: 78 Initial ECG Rhythm: Normal Sinus Initial ECG Intervals: Normal Initial ECG Impression: Nonspecific Changes Comment occasional delta wave, this was present on EKG dated 06/27/21 (JOSE GOMEZ DO) Departure Impression Primary Impression: Palpitations Additional Impressions: Hiatal hernia with GERD Anxiety Disposition: 01 HOME, SELF-CARE Condition: Improved Departure-Patient Inst. Decision time for Depature: 07:55 (UZMA CARD MD) Referrals: ISRA VALLE MD (PCP/Family) Primary Care Physician FARIHA DAWN JR, MD Patient Instructions: Anxiety, Adult (DC), Dehydration, Adult (DC), Palpitations (DC) Add. Discharge Instructions: All discharge instructions reviewed with patient and/or family. Voiced understanding. Continue home medications as previously prescribed. Follow-up with your primary care doctor and your wood preparation supervisor for recheck and further evaluation. Drink plenty of fluids. Return for worsened pain, fever, vomiting, weakness, breathing problems or other concerns as needed. Your COVID-19 test is pending. While it may be unlikely that you are positive, you should still stay at home until results are achieved which should be in the next 24 hours. JOSE GOMEZ DO Nov 06, 2021 06:22 UZMA CARD MD Nov 06, 2021 07:58
[2021-11-06 07:06] LABS: WHITE BLOOD COUNT 12.6 10^3/uL (4.3-11.0)
[2021-11-06 07:07] LABS: HEMATOCRIT 49 % (40-54); HEMOGLOBIN 16.5 g/dL (13.3-17.7); LYMPHOCYTES % (AUTO) 18 % (12-44); MEAN CORPUSCULAR HEMOGLOBIN 29 pg (25-34); MEAN CORPUSCULAR HGB CONC 34 g/dL (32-36); MEAN CORPUSCULAR VOLUME 87 fL (80-99); MEAN PLATELET VOLUME 11.8 fL (9.0-12.2); NEUTROPHILS % (AUTO) 38 % (42-75); PLATELET COUNT 173 10^3/uL (130-400)
[2021-11-06 07:08] LABS: BASOPHILS # (AUTO) 0.1 10^3/uL (0.0-0.1); BASOPHILS % (AUTO) 1 % (0-10); EOSINOPHILS # (AUTO) 4.8 10^3/uL (0.0-0.3); EOSINOPHILS % (AUTO) 39 % (0-10); LYMPHOCYTES # (AUTO) 2.3 X 10^3 (1.0-4.0); MONOCYTES # (AUTO) 0.6 X 10^3 (0.0-1.0); MONOCYTES % (AUTO) 5 % (0-12); NEUTROPHILS # (AUTO) 4.8 X 10^3 (1.8-7.8)
[2021-11-06 07:19] LABS: ALKALINE PHOSPHATASE 69 U/L (40-136); BILIRUBIN,TOTAL 0.5 MG/DL (0.1-1.0); BUN/CREATININE RATIO 14; CARBON DIOXIDE 23 MMOL/L (21-32); CHLORIDE 102 MMOL/L (98-107); CREATININE SERUM 1.38 MG/DL (0.60-1.30); GFR ESTIMATED 59; GLUCOSE 121 MG/DL (70-105); POTASSIUM 3.9 MMOL/L (3.6-5.0); SODIUM 135 MMOL/L (135-145)
[2021-11-06 07:20] LABS: ALANINE AMINOTRANSFERASE 28 U/L (0-55); ALBUMIN 4.1 GM/DL (3.2-4.5); LIPASE 31 U/L (8-78); TOTAL PROTEIN 6.7 GM/DL (6.4-8.2)
[2021-11-06 07:28] LABS: ATYPICAL LYMPHOCYTES 8 %; BAND NEUTROPHILS 3 %; BASOPHILS % (MANUAL) 1 %; EOSINOPHILS % (MANUAL) 36 %; LYMPHOCYTES % (MANUAL) 8 %; MONOCYTES % (MANUAL) 4 %; NEUTROPHILS % (MANUAL) 40 %; PLATELET ESTIMATE NORMAL; RBC MORPH NORMAL
[2021-11-06] MEDS ORDERED: LIDOCAINE 2% VISCOUS 15 ML UDC PO ONE (08:00)
[2021-11-06] MEDS ORDERED: ANTACID SUSP 30 ML UDC (MYLANTA) PO ONE (08:00)
[2021-11-06 08:07] VITALS: BP 136/72
== END 2021-11-06 08:19 | disposition home or self-care (01) ==
LOC: EDUNIT# 05:50 → ER FS 05:52
DX: K44.9 Diaphragmatic hernia without obstruction or gangrene (principal); K21.9 Gastro-esophageal reflux disease without esophagitis; F41.9 Anxiety disorder, unspecified; I10 Essential (primary) hypertension; E66.01 Morbid (severe) obesity due to excess calories; F17.210 Nicotine dependence, cigarettes, uncomplicated; Z79.82 Long term (current) use of aspirin; Z79.899 Other long term (current) drug therapy
CPT/HCPCS: 36415; 80053; 83690; 84484; 85007; 85027; 86141; 87635; 87804; 93005; 96361; 96374

== ENCOUNTER 2022-02-09 22:53 | Emergency (ER) | payer MEDICAID ==
[~2022-02-09] VITALS: Ht 182 cm; Wt 181.0 kg
[2022-02-09 23:00] VITALS: BP 156/100
--- NOTE | 2022-02-09 23:03 | ED Headache ---
General Chief Complaint: Head/Cervical Problems Stated Complaint: TROUBLE BREATHING,HEAD PAIN Source: patient History of Present Illness Date Seen by Provider: Feb 09, 2022 Time Seen by Provider: 23:03 Initial Comments This morbidly obese male smoker & pot user presents to ER late tonight for headache (occipital-frontal and bi-temporal) that he has had to a variable degree x "2-3 weeks" w/ daily N/V "whenever I try to eat. He denies fever, tick bite, rash, trauma (neither recent nor remote) or hx of chronic headaches but he has had them on occasion just not this bad for this long. Last imaging was months ago. He describes himself as a "frequent flyer" prone to "panic attacks" and felt panic tonight despite CELIS for weeks MOL. No new meds. No blood thinner Severity/Quality: moderate, pressure Location: frontal, temporal, occipital Prior Headaches/Recent Trauma: no recent headache/trauma, occasional headaches Associated Symptoms: No confusion, No fever/chills, No loss of consciousness; nausea/vomiting; No nasal drainage, No numbness in legs/feet, No rash, No seizures, No sinus infection, No stiff neck (but some neck pain), No vision changes, No weakness Allergies and Home Medications Allergies Coded Allergies: amoxicillin (Verified Allergy, Unknown, 02/16/21) Patient Home Medication List Home Medication List Reviewed: Yes Aspirin (Aspirin EC) 81 Mg Tablet.dr, 81 MG PO DAILY Prescribed by: KASIE HARRIS on 06/27/21 1002 Famotidine (Pepcid) 20 Mg Tablet, 20 MG PO BID Prescribed by: KASIE HARRIS on 06/27/21 1002 Hydroxyzine Pamoate (Vistaril) 50 Mg Capsule, 50 MG PO Q6H PRN for AGITATION Prescribed by: ABRAHAM BARBER on 02/19/20 103 Lisinopril/Hydrochlorothiazide (Lisinopril-Hctz 10-12.5 mg Tab) 1 Each Tablet, 1 EACH PO DAILY Prescribed by: ABRAHAM BARBER on 02/19/20 103 Metoprolol Succinate (Metoprolol Succinate) 50 Mg Tab.er.24h, 50 MG PO DAILY Prescribed by: KASIE HARRIS on 02/16/212200 Ondansetron (Ondansetron Odt) 4 Mg Tab.rapdis, 4 MG PO Q6H PRN for NAUSEA/VOMITING Prescribed by: NASIM MILLER on 07/07/212049 Pantoprazole Sodium (Pantoprazole Sodium) 40 Mg Tablet.dr, 40 MG PO DAILY Prescribed by: NASIM MILLER on 07/07/212049 Review of Systems Review of Systems Constitutional: see HPI Eyes: Denies Pain, Denies Photophobia, Denies Vision Changes Ears, Nose, Mouth, Throat: no symptoms reported Respiratory: no symptoms reported Cardiovascular: no symptoms reported Gastrointestinal: No abdominal pain, No hematemesis, No jaundice; nausea, vomiting Genitourinary: no symptoms reported Musculoskeletal: no symptoms reported Skin: no symptoms reported Psychiatric/Neurological: Anxiety Past Xdomxwt-Noherj-Cybrml Hx Patient Social History Tobacco Use?: Yes Tobacco type used: Cigarettes Smoking Status: Current Everyday Smoker Substance use?: Yes Substance type: Marijuana Substance frequency: Daily Alcohol Use?: No Pt feels they are or have been: No Immunizations Up To Date First/Initial COVID19 Vaccinat: Unvaccinated Seasonal Allergies Seasonal Allergies: No Past Medical History Surgery/Hospitalization HX: HTN, Morbid Obesity, Anxiety Surgeries: Yes Tonsillectomy Respiratory: No Cardiac: Yes Hypertension Neurological: No Genitourinary: No Gastrointestinal: No Musculoskeletal: Yes Scoliosis Endocrine: No HEENT: No Cancer: No Psychosocial: Yes Anxiety Integumentary: No Blood Disorders: No Physical Exam Vital Signs Vital Signs - First Documented 02/09/22 23:00 Temp 35.9 Pulse 110 Resp 22 B/P (MAP) 156/100 (118) Pulse Ox 96 O2 Delivery Room Air Capillary Refill : Height, Weight, BMI Height: 6'1.00" Weight: 375lbs. oz. 170.676291yx; 52.00 BMI Method:Stated General Appearance: no apparent distress HEENT: PERRL/EOMI, normal ENT inspection, pharynx normal Neck: supple Cardiovascular: normal peripheral pulses, regular rate, rhythm Respiratory: lungs clear, normal breath sounds, no accessory muscle use Gastrointestinal: non tender, soft Extremities: non-tender Psychiatric: alert, oriented x 3 Crainal Nerves: normal speech, PERRL; No facial asymmetry, No facial droop, No facial weakness, No gaze palsy Motor/Sensory: no motor deficit, no sensory deficit Skin: normal color, warm/dry Progress/Results/Core Measures Results/Orders Lab Results Laboratory Tests Test 02/09/22 23:20 Range/Units White Blood Count 11.9 H 4.3-11.0 10^3/uL Red Blood Count 5.88 H 4.30-5.52 10^6/uL Hemoglobin 17.6 13.3-17.7 g/dL Hematocrit 51 40-54 % Mean Corpuscular Volume 86 80-99 fL Mean Corpuscular Hemoglobin 30 25-34 pg Mean Corpuscular Hemoglobin Concent 35 32-36 g/dL Red Cell Distribution Width 13.0 10.0-14.5 % Platelet Count 202 130-400 10^3/uL Mean Platelet Volume 11.0 9.0-12.2 fL Immature Granulocyte % (Auto) 0 % Neutrophils (%) (Auto) 45 42-75 % Lymphocytes (%) (Auto) 20 12-44 % Monocytes (%) (Auto) 4 0-12 % Eosinophils (%) (Auto) 30 H 0-10 % Basophils (%) (Auto) 1 0-10 % Neutrophils # (Auto) 5.3 1.8-7.8 10^3/uL Lymphocytes # (Auto) 2.4 1.0-4.0 10^3/uL Monocytes # (Auto) 0.5 0.0-1.0 10^3/uL Eosinophils # (Auto) 3.6 H 0.0-0.3 10^3/uL Basophils # (Auto) 0.1 0.0-0.1 10^3/uL Immature Granulocyte # (Auto) 0.0 0.0-0.1 10^3/uL Neutrophils % (Manual) 49 % Lymphocytes % (Manual) 21 % Monocytes % (Manual) 4 % Eosinophils % (Manual) 26 % Sodium Level 134 L 135-145 MMOL/L Potassium Level 3.8 3.6-5.0 MMOL/L Chloride Level 98 98-107 MMOL/L Carbon Dioxide Level 23 21-32 MMOL/L Anion Gap 13 5-14 MMOL/L Blood Urea Nitrogen 12 7-18 MG/DL Creatinine 0.90 0.60-1.30 MG/DL Estimat Glomerular Filtration Rate 115 BUN/Creatinine Ratio 13 Glucose Level 150 H 70-105 MG/DL Calcium Level 9.9 8.5-10.1 MG/DL Corrected Calcium 9.5 8.5-10.1 MG/DL Total Bilirubin 0.5 0.1-1.0 MG/DL Aspartate Amino Transf (AST/SGOT) 18 5-34 U/L Alanine Aminotransferase (ALT/SGPT) 29 0-55 U/L Alkaline Phosphatase 68 40-136 U/L Total Protein 7.0 6.4-8.2 GM/DL Albumin 4.5 3.2-4.5 GM/DL Lipase 23 8-78 U/L My Orders Orders - GUANAKO ALONSO MD Ct Head Wo (02/09/22 23:09) Ct Cervical Spine Wo (02/09/22 23:09) Cbc With Automated Diff (02/09/22 23:10) Comprehensive Metabolic Panel (02/09/22 23:10) Lipase (02/09/22 23:10) Ua Culture If Indicated (02/09/22 23:10) Iv Heplock-Insert (Order) (02/09/22 23:10) Diphenhydramine Injection (Benadryl Inje (02/09/22 23:15) Oxygen-Administer 07,19 (02/09/22 23:10) Prochlorperazine Injection (Compazine In (02/09/22 23:15) Manual Differential (02/09/22 23:20) Medications Given in ED Current Medications Medications Dose Ordered Sig/Erika Route Start Time Stop Time Status Last Admin Dose Admin Diphenhydramine HCl 25 mg ONCE ONCE IVP 02/09/22 23:15 02/09/22 23:16 DC 02/09/22 23:22 25 MG Prochlorperazine Edisylate 10 mg ONCE ONCE IV 02/09/22 23:15 02/09/22 23:16 DC 02/09/22 23:21 10 MG Vital Signs/I&O 02/09/22 02/09/22 02/10/22 23:00 23:53 00:49 Temp 35.9 Pulse 110 91 Resp 22 20 B/P (MAP) 156/100 (118) 131/87 128/80 Pulse Ox 96 95 O2 Delivery Room Air Room Air Progress Progress Note : Progress Note Improved after meds; CT neg for head and neck; stable for outpatient f/u. I suspect this is tension type CELIS butmay benefit from neurology consult if this continues Departure Impression Primary Impression: Tension type headache Additional Impression: Nausea & vomiting Disposition: 01 HOME, SELF-CARE Condition: Improved Departure-Patient Inst. Decision time for Depature: 00:56 Referrals: ISRA VALLE MD (PCP/Family) Primary Care Physician Patient Instructions: Headache, Adult (DC), Nausea and Vomiting, Adult (DC) Scripts Ondansetron (Ondansetron Odt) 4 Mg Tab.rapdis 4 MG PO Q8H for nausea for 3 Days, #8 TAB Prov: GUANAKO ALONSO MD 02/10/22 GUANAKO ALONSO MD Feb 09, 2022 23:03
[2022-02-09] MEDS ORDERED: diphenhydrAMINE 50 MG/ML INJ (BENADRYL) IVP ONE (23:15)
[2022-02-09] MEDS ORDERED: PROCHLORPERAZINE 10 MG/2ML INJ (COMPAZINE) IV ONE (23:15)
[2022-02-09 23:22] LABS: BASOPHILS # (AUTO) 0.1 10^3/uL (0.0-0.1); BASOPHILS % (AUTO) 1 % (0-10); EOSINOPHILS # (AUTO) 3.6 10^3/uL (0.0-0.3); EOSINOPHILS % (AUTO) 30 % (0-10); HEMATOCRIT 51 % (40-54); HEMOGLOBIN 17.6 g/dL (13.3-17.7); LYMPHOCYTES # (AUTO) 2.4 10^3/uL (1.0-4.0); LYMPHOCYTES % (AUTO) 20 % (12-44); MEAN CORPUSCULAR HEMOGLOBIN 30 pg (25-34); MEAN CORPUSCULAR HGB CONC 35 g/dL (32-36); MEAN CORPUSCULAR VOLUME 86 fL (80-99); MONOCYTES # (AUTO) 0.5 10^3/uL (0.0-1.0); MONOCYTES % (AUTO) 4 % (0-12); NEUTROPHILS # (AUTO) 5.3 10^3/uL (1.8-7.8); NEUTROPHILS % (AUTO) 45 % (42-75); PLATELET COUNT 202 10^3/uL (130-400); WHITE BLOOD COUNT 11.9 10^3/uL (4.3-11.0)
[2022-02-09 23:40] LABS: EOSINOPHILS % (MANUAL) 26 %; LYMPHOCYTES % (MANUAL) 21 %; MONOCYTES % (MANUAL) 4 %; NEUTROPHILS % (MANUAL) 49 %
[2022-02-09 23:41] LABS: CREATININE SERUM 0.9 MG/DL (0.60-1.30); POTASSIUM 3.8 MMOL/L (3.6-5.0)
[2022-02-09 23:42] LABS: ALBUMIN 4.5 GM/DL (3.2-4.5); BILIRUBIN,TOTAL 0.5 MG/DL (0.1-1.0); CALCIUM 9.9 MG/DL (8.5-10.1)
[2022-02-10] MEDS ORDERED: ONDA4TAB11 PO (00:58)
--- NOTE | 2022-02-10 06:45 | Diagnostic Imaging Report ---
PROCEDURE: CT head without contrast. TECHNIQUE: Multiple contiguous axial images were obtained through the brain without the use of intravenous contrast. Auto Exposure Controls were utilized during the CT exam to meet ALARA standards for radiation dose reduction. INDICATION: Headache. Vomiting. COMPARISON: CT head without contrast 08/02/2021. FINDINGS: No intracranial hemorrhage, mass effect, hydrocephalus or extra-axial fluid collections. No CT evidence of a territorial infarction. Osseous structures are intact. Paranasal sinuses and mastoids are clear. IMPRESSION: No acute intracranial CT findings. Agree with preliminary interpretation. Dictated by: Dictated on workstation # [id number]
--- NOTE | 2022-02-10 06:48 | Diagnostic Imaging Report ---
PROCEDURE: CT cervical spine without contrast. TECHNIQUE: Multiple contiguous axial images were obtained through the cervical spine without the use of intravenous contrast. Sagittal and coronal reformations were then performed. Auto Exposure Controls were utilized during the CT exam to meet ALARA standards for radiation dose reduction. INDICATION: Headache. Vomiting. Neck pain. COMPARISON: None. FINDINGS: Normal alignment. Vertebral body heights preserved. No fractures. No substantial spondylotic change. Visualized paravertebral soft tissues are unremarkable. Lung apices are clear. IMPRESSION: No acute CT findings in the cervical spine. Agree with preliminary interpretation. Dictated by: Dictated on workstation # [id number]
== END 2022-02-10 01:08 | disposition home or self-care (01) ==
LOC: EDUNIT# 22:53 → ER FS 22:54
DX: G44.209 Tension-type headache, unspecified, not intractable (principal); R11.2 Nausea with vomiting, unspecified; F17.210 Nicotine dependence, cigarettes, uncomplicated
CPT/HCPCS: 36415; 70450; 72125; 80053; 83690; 85007; 85027; 99281

== ENCOUNTER 2022-03-19 20:43 | Emergency (ER) | payer MEDICAID ==
[~2022-03-19] VITALS: Ht 182.8 cm; Wt 181.9 kg
--- NOTE | 2022-03-19 21:21 | ED GI ---
General Chief Complaint: Abdominal/GI Problems Stated Complaint: ABDOMINAL PAIN,NAUSEA Source of Information: Patient, Old Records History of Present Illness Date Seen by Provider: March 19, 2022 Time Seen by Provider: 20:51 Initial Comments 36-year-old male presenting with complaints of fullness and tightness to his abdomen. He states this is been going on for over a week. He also has nausea and vomiting. This is worse after he eats something as he gets very full feels like his abdomen gets hard. Then if he throws up he feels like his symptoms improved. He was concerned that there was something going on with his liver as he had low tendon anatomy back and that made him nervous. He was denying pain with urination. He denies having diarrhea. He states that he has been having bowel movements and even tried taking the dose of magnesium citrate but felt th at it did not do anything to help with his bowel movements. He has not tried academic the clinic over this last week when he was having symptoms. He denies fever, chills, cough, headache. Timing/Duration: 1 Week (more than a week) Severity/Quality: Severe, Aching, Full Location: RUQ, LUQ, Epigastric Radiation: No Radiation Activities at Onset: None Modifying Factors: Worsens With Eating Associated Symptoms: No Back Pain, No Chest Pain, No Diaphoresis, No Fever/Chills, No Fatigue, No Headache, No Heartburn; Nausea/Vomiting; No Rash, No Shortness of Air; Swelling/Mass in Abdomen (feels like his abdomen gets hard and swollen after he eats); No Syncope, No Weakness Allergies and Home Medications Allergies Coded Allergies: amoxicillin (Verified Allergy, Unknown, 02/16/21) Patient Home Medication List Home Medication List Reviewed: Yes Aspirin (Aspirin EC) 81 Mg Tablet.dr, 81 MG PO DAILY Prescribed by: KASIE HARRIS on 06/27/21 1002 Dicyclomine HCl (Dicyclomine HCl) 20 Mg Tablet, 20 MG PO QID PRN for abdominal pain/nausea Prescribed by: NASIM MILLER on 03/19/222222 Famotidine (Pepcid) 20 Mg Tablet, 20 MG PO BID Prescribed by: KASIE HARRIS on 06/27/21 1002 Hydroxyzine Pamoate (Vistaril) 50 Mg Capsule, 50 MG PO Q6H PRN for AGITATION Prescribed by: ABRAHAM BARBER on 02/19/20 1034 Lisinopril/Hydrochlorothiazide (Lisinopril-Hctz 10-12.5 mg Tab) 1 Each Tablet, 1 EACH PO DAILY Prescribed by: ABRAHAM BARBER on 02/19/20 1034 Metoprolol Succinate (Metoprolol Succinate) 50 Mg Tab.er.24h, 50 MG PO DAILY Prescribed by: KASIE HARRIS on 02/16/212200 Ondansetron (Ondansetron Odt) 4 Mg Tab.rapdis, 4 MG PO Q6H PRN for NAUSEA/VOMITING Prescribed by: NASIM MILLER on 07/07/212049 Ondansetron (Ondansetron Odt) 4 Mg Tab.rapdis, 4 MG PO Q8H Prescribed by: GUANAKO ALONSO on 02/10/22 005 Pantoprazole Sodium (Pantoprazole Sodium) 40 Mg Tablet.dr, 40 MG PO DAILY Prescribed by: NASIM MILLER on 07/07/212049 Review of Systems Review of Systems Constitutional: No chills, No fever EENTM: No Symptoms Reported Respiratory: No Symptoms Reported Cardiovascular: No Symptoms Reported Gastrointestinal: See HPI Genitourinary: Denies Flank Pain, Denies Pain Musculoskeletal: no symptoms reported Skin: No rash Psychiatric/Neurological: Anxiety; Denies Headache Endocrine: No Symptoms Reported Hematologic/Lymphatic: Denies Blood Clots Past Wsemeby-Yoqmdr-Yennje Hx Patient Social History Tobacco Use?: Yes Tobacco type used: Cigarettes Smoking Status: Current Everyday Smoker Substance use?: No Alcohol Use?: No Pt feels they are or have been: No Immunizations Up To Date First/Initial COVID19 Vaccinat: Unvaccinated Seasonal Allergies Seasonal Allergies: No Past Medical History Surgery/Hospitalization HX: HTN, Morbid Obesity, Anxiety Surgeries: Yes Tonsillectomy Respiratory: No Cardiac: Yes Hypertension Neurological: No Genitourinary: No Gastrointestinal: No Musculoskeletal: Yes Scoliosis Endocrine: No HEENT: No Cancer: No Psychosocial: Yes Anxiety Integumentary: No Blood Disorders: No Physical Exam Vital Signs Vital Signs - First Documented 03/19/22 20:47 Temp 37.0 Pulse 123 Resp 18 B/P (MAP) 158/99 (118) Pulse Ox 98 O2 Delivery Room Air Capillary Refill : Height/Weight/BMI Height: 6'1.00" Weight: 375lbs. oz. 170.782263gf; 54.00 BMI Method:Stated General Appearance: obese, other (anxious) HEENT: PERRL/EOMI, normal ENT inspection, pharynx normal Neck: non-tender, full range of motion, supple, normal inspection Respiratory: chest non-tender, lungs clear, normal breath sounds, no respiratory distress, no accessory muscle use Cardiovascular: normal peripheral pulses, regular rate, rhythm Gastrointestinal: normal bowel sounds, soft, no pulsatile mass; No distended, No guarding, No rebound; tenderness (fullness to upper abdomen) Rectal: deferred Extremities: normal range of motion, non-tender, no pedal edema, no calf tenderness, normal capillary refill Neurologic/Psychiatric: toy electric train 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 II-XII nml as tested, alert, oriented x 3, other ( anxious) Skin: normal color, warm/dry Progress/Results/Core Measures Results/Orders Lab Results Laboratory Tests Test 03/19/22 20:50 03/19/22 20:51 Range/Units Urine Color DARK YELLOW Urine Clarity CLEAR Urine pH 6.0 5-9 Urine Specific [place] >=1.030 1.016-1.022 Urine Protein NEGATIVE NEGATIVE Urine Glucose (UA) NEGATIVE NEGATIVE Urine Ketones NEGATIVE NEGATIVE Urine Nitrite NEGATIVE NEGATIVE Urine Bilirubin NEGATIVE NEGATIVE Urine Urobilinogen 0.2 < = 1.0 MG/DL Urine Leukocyte Esterase NEGATIVE NEGATIVE Urine RBC (Auto) NEGATIVE NEGATIVE Urine RBC NONE /HPF Urine WBC 0-2 /HPF Urine Squamous Epithelial Cells 5-10 /HPF Urine Crystals NONE /LPF Urine Bacteria FEW H /HPF Urine Casts NONE /LPF Urine Mucus MODERATE H /LPF Urine Culture Indicated NO White Blood Count 13.2 H 4.3-11.0 10^3/uL Red Blood Count 5.77 H 4.30-5.52 10^6/uL Hemoglobin 17.4 13.3-17.7 g/dL Hematocrit 50 40-54 % Mean Corpuscular Volume 87 80-99 fL Mean Corpuscular Hemoglobin 30 25-34 pg Mean Corpuscular Hemoglobin Concent 35 32-36 g/dL Red Cell Distribution Width 13.2 10.0-14.5 % Platelet Count 217 130-400 10^3/uL Mean Platelet Volume 12.4 H 9.0-12.2 fL Immature Granulocyte % (Auto) 0 % Neutrophils (%) (Auto) 50 42-75 % Lymphocytes (%) (Auto) 23 12-44 % Monocytes (%) (Auto) 5 0-12 % Eosinophils (%) (Auto) 21 H 0-10 % Basophils (%) (Auto) 1 0-10 % Neutrophils # (Auto) 6.6 1.8-7.8 10^3/uL Lymphocytes # (Auto) 3.0 1.0-4.0 10^3/uL Monocytes # (Auto) 0.6 0.0-1.0 10^3/uL Eosinophils # (Auto) 2.8 H 0.0-0.3 10^3/uL Basophils # (Auto) 0.1 0.0-0.1 10^3/uL Immature Granulocyte # (Auto) 0.1 0.0-0.1 10^3/uL Neutrophils % (Manual) 44 % Lymphocytes % (Manual) 26 % Monocytes % (Manual) 4 % Eosinophils % (Manual) 24 % Basophils % (Manual) 0 % Band Neutrophils 2 % Platelet Estimate NORMAL Blood Morphology Comment NORMAL Sodium Level 138 135-145 MMOL/L Potassium Level 4.1 3.6-5.0 MMOL/L Chloride Level 102 98-107 MMOL/L Carbon Dioxide Level 23 21-32 MMOL/L Anion Gap 13 5-14 MMOL/L Blood Urea Nitrogen 22 H 7-18 MG/DL Creatinine 0.91 0.60-1.30 MG/DL Estimat Glomerular Filtration Rate 113 BUN/Creatinine Ratio 24 Glucose Level 131 H 70-105 MG/DL Calcium Level 9.1 8.5-10.1 MG/DL Corrected Calcium 8.9 8.5-10.1 MG/DL Total Bilirubin 0.3 0.1-1.0 MG/DL Aspartate Amino Transf (AST/SGOT) 24 5-34 U/L Alanine Aminotransferase (ALT/SGPT) 37 0-55 U/L Alkaline Phosphatase 74 40-136 U/L Total Protein 7.3 6.4-8.2 GM/DL Albumin 4.3 3.2-4.5 GM/DL Lipase 30 8-78 U/L My Orders Orders - NASIM MILLER MD Comprehensive Metabolic Panel (03/19/22 21:14) Lipase (03/19/22 21:14) Ua Culture If Indicated (03/19/22 21:14) Cbc With Automated Diff (03/19/22 21:14) Ct Abdomen/Pelvis Wo (03/19/22 21:14) Manual Differential (03/19/22 20:51) Vital Signs/I&O 03/19/22 03/19/22 20:47 23:05 Temp 37.0 Pulse 123 111 Resp 18 18 B/P (MAP) 158/99 (118) 151/96 Pulse Ox 98 96 O2 Delivery Room Air Room Air Progress Progress Note #1: Progress Note Unable to obtain IV access on the patient. Labs were sent to check his blood counts, electrolytes and chemistry panel, urinalysis. Will obtain a CT scan of his abdomen pelvis without contrast to evaluate for constipation and increased stool for if it looks like there is increased fluid around his gallbladder or reason for him to be having pain. Differential diagnosis includes cholecystitis, gastritis, colitis, diverticulitis, constipation Progress Note #2: Progress Note Labs shows mild elevation of the white blood cell count of 13.2. His chemistry panel was stable without acute significant normality. His liver enzymes and lipase were normal. The CT scan did not show acute process to account for his abdominal pain. Since his pain is worse after eating little better after he vomits we will recommend getting an outpatient ultrasound. He may also need to have an EGD done to look for ulcers or issues with his stomach. Encouraged to check back with the clinic for continued concerns on this. In the meantime follow a strict low-fat bland diet in case it is his gallbladder. Diagnostic Imaging Diagonstic Imaging: CT Plain Films/CT/US/NM/MRI: abdomen, pelvis Comments NAME: SAUM[facility] VALENTINE [facility] REC#: [id number] PT STATUS: REG ER : 1985 PHYSICIAN: NASIM MILLER MD ADMIT DATE: 03/19/22/ER FS Signed Date of Exam:03/19/22 CT ABDOMEN/PELVIS WO PROCEDURE: CT abdomen and pelvis without contrast. TECHNIQUE: Multiple contiguous axial images were obtained through the abdomen and pelvis without the use of intravenous contrast. Auto Exposure Controls were utilized during the CT exam to meet ALARA standards for radiation dose reduction. INDICATION: Upper abdominal pain, nausea x2 weeks Lung bases are clear. Liver appears normal. The gallbladder is present. The pancreas appears normal. Spleen is not enlarged. GE junction is unremarkable. Adrenals are normal. There is a 5 mm calculus in an dorsal interpolar calyx of the right kidney. There is no hydronephrosis. Left kidney appears normal. Aorta and IVC are unremarkable. Small bowel is not dilated. The appendix is normal. Colon appears normal. There is no intraperitoneal free air or free fluid. Urinary bladder is normal. IMPRESSION: Right nephrolithiasis. No acute abnormality seen in the abdomen or pelvis. Dictated by: Dictated on workstation # [id number] Dict: 03/19/222158 Trans: 03/19/222200 TCB [id number] Interpreted by: UZMA MOSELEY MD Electronically signed by: UZMA MOSELEY MD 03/19/222200 Reviewed: Reviewed by Me Departure Impression Primary Impression: Upper abdominal pain Additional Impression: Nausea and vomiting in adult Disposition: 01 HOME, SELF-CARE Condition: Stable Departure-Patient Inst. Decision time for Depature: 22:58 Referrals: ISRA VALLE MD (PCP/Family) Primary Care Physician Patient Instructions: Abdominal Pain, Adult ED, Gallbladder Diet, Nausea and Vomiting, Adult ED Add. Discharge Instructions: Stay well-hydrated and drink plenty of fluids. Follow a low-fat bland diet. Check back with the clinic about your symptoms. See about having an outpatient ultrasound done to look at your gallbladder. You may call the clinic in the morning at [phone] and see about setting up an appointment with Faye baker cad technician to have the gallbladder ultrasound performed. If you want to have the test done with [facility] here in [place] on Friday you could call [facility] Scheduling for Radiology at [phone] and let them know you want to have your ultrasound done here in [place] on if possible. You may need to have more advanced testing such as a nuclear medicine test to look at your gallbladder or the scope when doing your throat to look at the lining of the esophagus and stomach. These would be test that your primary care provider would have to order. If you are having fever 101 Fahrenheit, uncontrolled vomiting then check with clinic or return for further evaluation All discharge instructions reviewed with patient and/or family. Voiced understanding. Scripts Dicyclomine HCl (Dicyclomine HCl) 20 Mg Tablet 20 MG PO QID PRN for abdominal pain/nausea for 10 Days, #40 TAB 0 Refills Prov: NASIM MILLER MD 03/19/22 NASIM MILLER MD March 19, 2022 21:20
[2022-03-19 21:32] LABS: BILIRUBIN,URINE NEGATIVE (NEGATIVE); CLARITY,URINE CLEAR; GLUCOSE, URINE (UA) NEGATIVE (NEGATIVE); KETONES,URINE NEGATIVE (NEGATIVE); LEUKOCYTE ESTERASE ,URINE NEGATIVE (NEGATIVE); NITRITE,URINE NEGATIVE (NEGATIVE); PROTEIN,URINE NEGATIVE (NEGATIVE)
[2022-03-19 21:34] LABS: BASOPHILS # (AUTO) 0.1 10^3/uL (0.0-0.1); BASOPHILS % (AUTO) 1 % (0-10); EOSINOPHILS # (AUTO) 2.8 10^3/uL (0.0-0.3); EOSINOPHILS % (AUTO) 21 % (0-10); HEMATOCRIT 50 % (40-54); HEMOGLOBIN 17.4 g/dL (13.3-17.7); LYMPHOCYTES % (AUTO) 23 % (12-44); MEAN CORPUSCULAR HEMOGLOBIN 30 pg (25-34); MEAN CORPUSCULAR HGB CONC 35 g/dL (32-36); MEAN CORPUSCULAR VOLUME 87 fL (80-99); MEAN PLATELET VOLUME 12.4 fL (9.0-12.2); MONOCYTES # (AUTO) 0.6 10^3/uL (0.0-1.0); MONOCYTES % (AUTO) 5 % (0-12); NEUTROPHILS # (AUTO) 6.6 10^3/uL (1.8-7.8); NEUTROPHILS % (AUTO) 50 % (42-75); PLATELET COUNT 217 10^3/uL (130-400); WHITE BLOOD COUNT 13.2 10^3/uL (4.3-11.0)
[2022-03-19 21:41] LABS: BACTERIA,URINE FEW /HPF; WBC,URINE 0-2 /HPF
[2022-03-19 21:42] LABS: COLOR,URINE DARK YELLOW
[2022-03-19 21:46] LABS: ALBUMIN 4.3 GM/DL (3.2-4.5); BILIRUBIN,TOTAL 0.3 MG/DL (0.1-1.0); CALCIUM 9.1 MG/DL (8.5-10.1); CREATININE SERUM 0.91 MG/DL (0.60-1.30); POTASSIUM 4.1 MMOL/L (3.6-5.0); TOTAL PROTEIN 7.3 GM/DL (6.4-8.2)
--- NOTE | 2022-03-19 22:02 | Diagnostic Imaging Report ---
PROCEDURE: CT abdomen and pelvis without contrast. TECHNIQUE: Multiple contiguous axial images were obtained through the abdomen and pelvis without the use of intravenous contrast. Auto Exposure Controls were utilized during the CT exam to meet ALARA standards for radiation dose reduction. INDICATION: Upper abdominal pain, nausea x2 weeks Lung bases are clear. Liver appears normal. The gallbladder is present. The pancreas appears normal. Spleen is not enlarged. GE junction is unremarkable. Adrenals are normal. There is a 5 mm calculus in an dorsal interpolar calyx of the right kidney. There is no hydronephrosis. Left kidney appears normal. Aorta and IVC are unremarkable. Small bowel is not dilated. The appendix is normal. Colon appears normal. There is no intraperitoneal free air or free fluid. Urinary bladder is normal. IMPRESSION: Right nephrolithiasis. No acute abnormality seen in the abdomen or pelvis. Dictated by: Dictated on workstation # [id number]
[2022-03-19] MEDS ORDERED: DICY20TA PO (22:23)
[2022-03-19 22:24] LABS: BAND NEUTROPHILS 2 %; BASOPHILS % (MANUAL) 0 %; EOSINOPHILS % (MANUAL) 24 %; LYMPHOCYTES % (MANUAL) 26 %; MONOCYTES % (MANUAL) 4 %; NEUTROPHILS % (MANUAL) 44 %; PLATELET ESTIMATE NORMAL; RBC MORPH NORMAL
[2022-03-19 23:05] VITALS: BP 151/96
== END 2022-03-19 23:05 | disposition home or self-care (01) ==
LOC: EDUNIT# 20:43 → ER FS 20:46
DX: N20.0 Calculus of kidney (principal); D72.829 Elevated white blood cell count, unspecified; E66.01 Morbid (severe) obesity due to excess calories; Z68.43 Body mass index [BMI] 50.0-59.9, adult
CPT/HCPCS: 36415; 74176; 80053; 81000; 83690; 85007; 85027

== ENCOUNTER 2022-03-24 17:33 | Emergency (ER) | payer MEDICAID ==
[~2022-03-24 17:33] MED LIST changes: +DICY20TA PO
[2022-03-24] MEDS ORDERED: meTOprolol 5 MG/5 ML (LOPRESSOR) VIAL IV STA (17:50)
[2022-03-24] MEDS ORDERED: NS IV 1000 ML 1,000 ML IV STA (17:50)
--- NOTE | 2022-03-24 17:58 | ED General ---
General Chief Complaint: Cardiac/General Problems Stated Complaint: DIZZINESS Nursing Triage Note: Patient states he feels as though his heart periodically races, then slows down. He also reports nausea and dizziness. He states he has had these symptoms intermittently for years, states he had a cardiac workup including an echo and stress test that were negative. Source of Information: Patient, Old Records Exam Limitations: No Limitations History of Present Illness Date Seen by Provider: March 24, 2022 Time Seen by Provider: 17:36 Initial Comments 36-year-old male presenting with complaints of palpitations and feeling like his heart is racing. He also has been having some nausea and dizziness. He has had these symptoms intermittently for years and even had a cardiac work-up in the past with an echocardiogram, stress test and event monitor. He does have hypertension and takes medication for that but continues to have the symptoms. He was recently seen in the emergency department 5 days ago for right upper quadrant and epigastric abdominal pain. He states that his stomach still does not feel quite right so he has not been eating very well. He has only drank 2 glasses of water today. He states that the palpitations have been going on since he got up this morning. Since they were not improving throughout the day he finally came into the emergency department this evening. He denies having any actual vomiting, fever, chills, diarrhea, shortness of breath, chest pain. He feels like his heart races at times then slows down then beats very hard. Timing/Duration: 4-6 Hours (Since he got up around 10 or 11 this morning) Severity: Moderate Modifying Factors: worse with Movement; improves with Rest Associated Systoms: No Chest Pain, No Cough, No Diaphoresis, No Fever/Chills; Headaches (Chronic and no different than normal), Loss of Appetite, Malaise, Nausea/Vomiting (Nausea but no vomiting); No Rash, No Seizure, No Shortness of Air, No Syncope, No Weakness Allergies and Home Medications Allergies Coded Allergies: amoxicillin (Verified Allergy, Unknown, 02/16/21) Patient Home Medication List Home Medication List Reviewed: Yes Aspirin (Aspirin EC) 81 Mg Tablet., 81 MG PO DAILY Prescribed by: KASIE HARRIS on 06/27/21 1002 Dicyclomine HCl (Dicyclomine HCl) 20 Mg Tablet, 20 MG PO QID PRN for abdominal pain/nausea Prescribed by: NASIM MILLER on 03/19/22 2223 Famotidine (Pepcid) 20 Mg Tablet, 20 MG PO BID Prescribed by: KASIE HARRIS on 06/27/21 1002 Hydroxyzine Pamoate (Vistaril) 50 Mg Capsule, 50 MG PO Q6H PRN for AGITATION Prescribed by: ABRAHAM BARBER on 02/19/20 1034 Lisinopril/Hydrochlorothiazide (Lisinopril-Hctz 10-12.5 mg Tab) 1 Each Tablet, 1 EACH PO DAILY Prescribed by: ABRAHAM BARBER on 02/19/20 1034 Metoprolol Succinate (Metoprolol Succinate) 50 Mg Tab.er.24h, 50 MG PO DAILY Prescribed by: KASIE HARRIS on 02/16/212200 Metoprolol Succinate (Metoprolol Succinate) 25 Mg Tab.er.24h, 25 MG PO DAILY Prescribed by: NASIM FAJARDORT on 03/24/22 183 Ondansetron (Ondansetron Odt) 4 Mg Tab.rapdis, 4 MG PO Q6H PRN for NAUSEA/VOMITING Prescribed by: NASIM BRYANYART on 07/07/212049 Ondansetron (Ondansetron Odt) 4 Mg Tab.rapdis, 4 MG PO Q8H Prescribed by: GUANAKO ALONSO on 02/10/22 005 Pantoprazole Sodium (Pantoprazole Sodium) 40 Mg Tablet.dr, 40 MG PO DAILY Prescribed by: NASIM FAJARDORT on 07/07/212049 Review of Systems Review of Systems Constitutional: No chills, No diaphoresis; dizziness; No fever; malaise EENTM: No ear discharge, No hearing loss, No ear pain, No blurred vision, No vision loss, No nose congestion, No throat pain Respiratory: No cough, No short of breath Cardiovascular: No chest pain, No edema; palpitations Gastrointestinal: nausea; No vomiting Genitourinary: No dysuria Musculoskeletal: no symptoms reported Skin: No rash Psychiatric/Neurological: See HPI, Anxiety Hematologic/Lymphatic: Denies Blood Clots, Denies Easy Bleeding, Denies Easy Bruising Immunological/Allergic: no symptoms reported Past Gzkycls-Fqgdqs-Huyucc Hx Patient Social History Tobacco Use?: No Substance use?: No Alcohol Use?: No Pt feels they are or have been: No Immunizations Up To Date First/Initial COVID19 Vaccinat: Unvaccinated Second COVID19 Vaccination Dwaine: Unvaccinated Third COVID19 Vaccination Date: Unvaccinated Seasonal Allergies Seasonal Allergies: No Past Medical History Surgery/Hospitalization HX: HTN, Morbid Obesity, Anxiety Surgeries: Yes Tonsillectomy Respiratory: No Cardiac: Yes Hypertension Neurological: No Genitourinary: No Gastrointestinal: No Musculoskeletal: Yes Scoliosis Endocrine: No HEENT: No Cancer: No Psychosocial: Yes Anxiety Integumentary: No Blood Disorders: No Physical Exam Vital Signs Vital Signs - First Documented 03/24/22 17:43 Temp 36.7 Pulse 118 Resp 18 B/P (MAP) 179/97 (124) Pulse Ox 98 O2 Delivery Room Air Capillary Refill : Less Than 3 Seconds Height, Weight, BMI Height: 6'1.00" Weight: 375lbs. oz. 170.869026bi; 54.00 BMI Method:Stated General Appearance: No Apparent Distress, Obese (Morbidly obese) HEENT: PERRL/EOMI, Pharynx Normal Neck: Full Range of Motion, Normal Inspection, Non Tender, Supple Respiratory: Chest Non Tender, Lungs Clear, Normal Breath Sounds, No Accessory Muscle Use, No Respiratory Distress Cardiovascular: No Edema, No Murmur, Normal Peripheral Pulses, Tachycardia Gastrointestinal: Normal Bowel Sounds, No Pulsatile Mass, Non Tender, Soft Rectal: Deferred Extremity: Normal Capillary Refill, Normal Inspection, Normal Range of Motion, Non Tender, No Calf Tenderness, No Pedal Edema Neurologic/Psychiatric: Alert, Oriented x3, automobile locator II-XII Norm as Tested Skin: Normal Color, Warm/Dry Progress/Results/Core Measures Suspected Sepsis SIRS Temperature: Pulse: 118 Respiratory Rate: 18 Laboratory Tests 03/24/22 17:58: White Blood Count 11.5H Blood Pressure 179 /97 Mean: 124 Laboratory Tests 03/24/22 17:58: Creatinine 0.96, INR Comment 0.9, Platelet Count 198, Total Bilirubin 0.6 Results/Orders Lab Results Laboratory Tests Test 03/24/22 17:58 03/24/22 18:00 Range/Units White Blood Count 11.5 H 4.3-11.0 10^3/uL Red Blood Count 5.68 H 4.30-5.52 10^6/uL Hemoglobin 17.0 13.3-17.7 g/dL Hematocrit 49 40-54 % Mean Corpuscular Volume 87 80-99 fL Mean Corpuscular Hemoglobin 30 25-34 pg Mean Corpuscular Hemoglobin Concent 34 32-36 g/dL Red Cell Distribution Width 13.2 10.0-14.5 % Platelet Count 198 130-400 10^3/uL Mean Platelet Volume 11.2 9.0-12.2 fL Immature Granulocyte % (Auto) 0 % Neutrophils (%) (Auto) 56 42-75 % Lymphocytes (%) (Auto) 20 12-44 % Monocytes (%) (Auto) 6 0-12 % Eosinophils (%) (Auto) 16 H 0-10 % Basophils (%) (Auto) 1 0-10 % Neutrophils # (Auto) 6.5 1.8-7.8 10^3/uL Lymphocytes # (Auto) 2.3 1.0-4.0 10^3/uL Monocytes # (Auto) 0.7 0.0-1.0 10^3/uL Eosinophils # (Auto) 1.9 H 0.0-0.3 10^3/uL Basophils # (Auto) 0.1 0.0-0.1 10^3/uL Immature Granulocyte # (Auto) 0.0 0.0-0.1 10^3/uL Neutrophils % (Manual) 52 % Lymphocytes % (Manual) 20 % Monocytes % (Manual) 8 % Eosinophils % (Manual) 20 % Prothrombin Time 12.9 12.2-14.7 SEC INR Comment 0.9 0.8-1.4 Activated Partial Thromboplast Time 31 24-35 SEC Sodium Level 135 135-145 MMOL/L Potassium Level 4.3 3.6-5.0 MMOL/L Chloride Level 100 98-107 MMOL/L Carbon Dioxide Level 22 21-32 MMOL/L Anion Gap 13 5-14 MMOL/L Blood Urea Nitrogen 14 7-18 MG/DL Creatinine 0.96 0.60-1.30 MG/DL Estimat Glomerular Filtration Rate 106 BUN/Creatinine Ratio 15 Glucose Level 105 70-105 MG/DL Calcium Level 9.7 8.5-10.1 MG/DL Corrected Calcium 9.3 8.5-10.1 MG/DL Magnesium Level 1.8 1.6-2.4 MG/DL Total Bilirubin 0.6 0.1-1.0 MG/DL Aspartate Amino Transf (AST/SGOT) 24 5-34 U/L Alanine Aminotransferase (ALT/SGPT) 32 0-55 U/L Alkaline Phosphatase 65 40-136 U/L Myoglobin 28.8 10.0-92.0 NG/ML Troponin I < 0.30 <0.30 NG/ML Pro-B-Type Natriuretic Peptide 11.5 <75.0 PG/ML Total Protein 7.5 6.4-8.2 GM/DL Albumin 4.5 3.2-4.5 GM/DL Lipase 22 8-78 U/L Urine Color YELLOW Urine Clarity CLEAR Urine pH 6.0 5-9 Urine Specific [place] 1.020 1.016-1.022 Urine Protein NEGATIVE NEGATIVE Urine Glucose (UA) NEGATIVE NEGATIVE Urine Ketones 2+ H NEGATIVE Urine Nitrite NEGATIVE NEGATIVE Urine Bilirubin NEGATIVE NEGATIVE Urine Urobilinogen 0.2 < = 1.0 MG/DL Urine Leukocyte Esterase NEGATIVE NEGATIVE Urine RBC (Auto) NEGATIVE NEGATIVE Urine RBC NONE /HPF Urine WBC 5-10 H /HPF Urine Squamous Epithelial Cells 10-25 H /HPF Urine Crystals NONE /LPF Urine Bacteria MODERATE H /HPF Urine Casts PRESENT /LPF Urine Hyaline Casts 5-10 H /LPF Urine Coarse Granular Casts 2-5 H /LPF Urine Mucus LARGE H /LPF Urine Other EPITHELIAL CELL CAST /HPF Urine Culture Indicated YES Urine Opiates Screen NEGATIVE NEGATIVE Urine Oxycodone Screen NEGATIVE NEGATIVE Urine Methadone Screen NEGATIVE NEGATIVE Urine Propoxyphene Screen NEGATIVE NEGATIVE Urine Barbiturates Screen NEGATIVE NEGATIVE Ur Tricyclic Antidepressants Screen NEGATIVE NEGATIVE Urine Phencyclidine Screen NEGATIVE NEGATIVE Urine Amphetamines Screen NEGATIVE NEGATIVE Urine Methamphetamines Screen NEGATIVE NEGATIVE Urine Benzodiazepines Screen NEGATIVE NEGATIVE Urine Cocaine Screen NEGATIVE NEGATIVE Urine Cannabinoids Screen POSITIVE H NEGATIVE My Orders Orders - NASIM MILLER MD Ua Culture If Indicated (03/24/22 17:36) Drug Screen Stat (Urine) (03/24/22 17:36) Cbc With Automated Diff (03/24/22 17:50) Magnesium (03/24/22 17:50) Chest 1 View Ap/Pa Only (03/24/22 17:50) Ekg Tracing (03/24/22 17:50) Comprehensive Metabolic Panel (03/24/22 17:50) Myoglobin Serum (03/24/22 17:50) Protime With Inr (03/24/22 17:50) Partial Thromboplastin Time (03/24/22 17:50) O2 (03/24/22 17:50) Monitor-Rhythm Ecg Trace Only (03/24/22 17:50) Ed Iv/Invasive Line Start (03/24/22 17:50) Lipase (03/24/22 17:50) Troponin I Fs (03/24/22 17:50) Probnp Fs (03/24/22 17:50) Ns Iv 1000 Ml (Sodium Chloride 0.9%) (03/24/22 17:50) Metoprolol Tartrate Injection (Lopressor (03/24/22 17:50) Manual Differential (03/24/22 17:58) Urine Culture (03/24/22 18:00) Metoprolol Succinate (Xl) Tab (Toprol Xl (03/24/22 18:31) Vital Signs/I&O 03/24/22 17:43 Temp 36.7 Pulse 118 Resp 18 B/P (MAP) 179/97 (124) Pulse Ox 98 O2 Delivery Room Air Capillary Refill : Less Than 3 Seconds Blood Pressure Mean: 124 Progress Note #1: Progress Note Check labs and urinalysis. Evaluate for dehydration, infection, anemia, cardiac disease. Chest x-ray since he was also having palpitations. His electrocardiogram shows sinus tachycardia with a heart rate of 113 bpm. He does not have any ST elevation on his EKG. Will try giving a dose of metoprolol IV to see if it might help with his heart rate as well as his elevated blood pressure. Try a liter of normal saline 1 L IV fluid bolus for hydration since he states he is only drink 2 glasses of water today. Progress Note #2: Progress Note Labs are stable without acute significant abnormality on CBC or chemistry. Troponin is less than 0.3. Urinalysis has a specific gravity of 1.020. He does have 2+ ketones in his urine and 10-25 epithelial cells with moderate bacteria. Chest x-ray does not show any acute process. His electrocardiogram appears similar to tracing from last year. He had an echocardiogram as well as stress test and cardiology evaluation last fall that was normal. Will encourage patient to try eating and drinking better and consider beta-tien for heart rate and blood pressure control in addition to the medicine he is already taking. Advised to follow-up with the clinic and he may need another Holter monitor or event monitor if he continues to have palpitations. Reassured patient and advised him to check with clinic about possible Nuclear Medicine test for his gallbladder. ECG Initial ECG Impression Date: March 24, 2022 Initial ECG Impression Time: 17:45 Initial ECG Rate: 113 Initial ECG Rhythm: S.Tach Initial ECG Comparisson: Unchanged Comment Sinus tachycardia with a heart rate of 113 bpm. IA interval [address] elevation. QT interval 285 ms with a QTc interval 352 ms. He does have some downsloping of the ST segment in the leads I, aVL, V2 through V4. Overall this appears similar to his prior tracings in the system. Diagnostic Imaging Diagonstic Imaging: Xray Plain Films/CT/US/NM/MRI: chest Comments NAME: SAUMYA VALENTINE MED REC#: [id number] PT STATUS: REG ER : 1985 PHYSICIAN: NASIM MILLER MD ADMIT DATE: 03/24/22/ER FS Signed Date of Exam:03/24/22 CHEST 1 VIEW AP/PA ONLY CHEST 1 VIEW AP/PA ONLY Indication: Palpitations Comparison: 06/27/2021 Findings: No focal airspace disease in the visualized lungs. Please note that the posterior lower lobes are poorly evaluated by portable radiography. No pleural effusion or pneumothorax. Normal cardiomediastinal silhouette. Impression: 1. No acute cardiopulmonary process by portable radiography. Dictated by: Dictated on workstation # [id number] Dict: 03/24/221814 Trans: 03/24/221815 [facility] [id number] Interpreted by: JULIO KNIGHT MD Electronically signed by: JULIO KNIGHT MD 03/24/221815 Reviewed: Reviewed by Me Departure Impression Primary Impression: Heart palpitations Additional Impressions: Anxiety about health Elevated blood pressure reading with diagnosis of hypertension Dehydration Disposition: 01 HOME, SELF-CARE Condition: Stable Departure-Patient Inst. Decision time for Depature: 18:32 Referrals: ISRA VALLE MD (PCP/Family) Primary Care Physician FARIHA DAWN JR, MD Patient Instructions: Palpitations ED, High Blood Pressure ED, Anxiety, Adult ED, Dehydration, Adult ED Add. Discharge Instructions: Try drinking more water and electrolyte drinks to help with your hydration. Take the additional blood pressure medicine to help with your blood pressure and your heart rate. Check with clinic and they may want to continue this or have you use a different medicine. You may need to recheck with Cardiology about an additional Holter or Event monitor to try and catch any irregular beats or any different reason you are having palpitations besides dehydration, high blood pressure and anxiety All discharge instructions reviewed with patient and/or family. Voiced u nderstanding. Scripts Metoprolol Succinate (Metoprolol Succinate) 25 Mg Tab.er.24h 25 MG PO DAILY for High blood pressure/palpitatio for 30 Days, #30 TAB 0 Refills Prov: NASIM MILLER MD 03/24/22 NASIM MILLER MD March 24, 2022 17:58
[2022-03-24 18:00] LABS: BASOPHILS # (AUTO) 0.1 10^3/uL (0.0-0.1); BASOPHILS % (AUTO) 1 % (0-10); EOSINOPHILS # (AUTO) 1.9 10^3/uL (0.0-0.3); EOSINOPHILS % (AUTO) 16 % (0-10); HEMATOCRIT 49 % (40-54); LYMPHOCYTES # (AUTO) 2.3 10^3/uL (1.0-4.0); LYMPHOCYTES % (AUTO) 20 % (12-44); MEAN CORPUSCULAR HEMOGLOBIN 30 pg (25-34); MEAN CORPUSCULAR HGB CONC 34 g/dL (32-36); MEAN CORPUSCULAR VOLUME 87 fL (80-99); MEAN PLATELET VOLUME 11.2 fL (9.0-12.2); MONOCYTES # (AUTO) 0.7 10^3/uL (0.0-1.0); MONOCYTES % (AUTO) 6 % (0-12); NEUTROPHILS # (AUTO) 6.5 10^3/uL (1.8-7.8); NEUTROPHILS % (AUTO) 56 % (42-75); PLATELET COUNT 198 10^3/uL (130-400); WHITE BLOOD COUNT 11.5 10^3/uL (4.3-11.0)
[2022-03-24 18:06] LABS: BILIRUBIN,URINE NEGATIVE (NEGATIVE); CLARITY,URINE CLEAR; COLOR,URINE YELLOW; GLUCOSE, URINE (UA) NEGATIVE (NEGATIVE); KETONES,URINE 2+ (NEGATIVE); LEUKOCYTE ESTERASE ,URINE NEGATIVE (NEGATIVE); NITRITE,URINE NEGATIVE (NEGATIVE); PROTEIN,URINE NEGATIVE (NEGATIVE)
[2022-03-24 18:08] LABS: INR 0.9 (0.8-1.4); PROTHROMBIN TIME PATIENT 12.9 SEC (12.2-14.7)
[2022-03-24 18:11] LABS: BACTERIA,URINE MODERATE /HPF
[2022-03-24 18:13] LABS: URINE OTHER EPITHELIAL CELL CAST /HPF
[2022-03-24 18:17] LABS: AMPHETAMINE SCREEN, URINE NEGATIVE (NEGATIVE); BARBITURATE SCREEN URINE NEGATIVE (NEGATIVE); BENZODIAZEPINES SCREEN URINE NEGATIVE (NEGATIVE); CANNABINOID SCREEN, URINE POSITIVE (NEGATIVE); COCAINE SCREEN URINE NEGATIVE (NEGATIVE); METHADONE STAT NEGATIVE (NEGATIVE); OPIATE SCREEN URINE NEGATIVE (NEGATIVE); OXYCODONE STAT NEGATIVE (NEGATIVE); PROPOXYPHENE STAT NEGATIVE (NEGATIVE); TRICYCLIC ANTIDEPRESSANTS SCRE NEGATIVE (NEGATIVE)
--- NOTE | 2022-03-24 18:17 | Diagnostic Imaging Report ---
CHEST 1 VIEW AP/PA ONLY Indication: Palpitations Comparison: 06/27/2021 Findings: No focal airspace disease in the visualized lungs. Please note that the posterior lower lobes are poorly evaluated by portable radiography. No pleural effusion or pneumothorax. Normal cardiomediastinal silhouette. Impression: 1. No acute cardiopulmonary process by portable radiography. Dictated by: Dictated on workstation # [id number]
[2022-03-24 18:20] LABS: POTASSIUM 4.3 MMOL/L (3.6-5.0)
[2022-03-24 18:21] LABS: ALBUMIN 4.5 GM/DL (3.2-4.5); BILIRUBIN,TOTAL 0.6 MG/DL (0.1-1.0); CALCIUM 9.7 MG/DL (8.5-10.1); CREATININE SERUM 0.96 MG/DL (0.60-1.30); EOSINOPHILS % (MANUAL) 20 %; LYMPHOCYTES % (MANUAL) 20 %; MAGNESIUM 1.8 MG/DL (1.6-2.4); MONOCYTES % (MANUAL) 8 %; NEUTROPHILS % (MANUAL) 52 %; TOTAL PROTEIN 7.5 GM/DL (6.4-8.2)
[2022-03-24] MEDS ORDERED: meTOproloL SUCCINATE 50 MG (TOPROL XL) TAB PO STA (18:31)
[2022-03-24] MEDS ORDERED: MTP25TSR PO (18:36)
[2022-03-24 19:00] VITALS: BP 176/92
== END 2022-03-24 19:01 | disposition home or self-care (01) ==
LOC: EDUNIT# 17:33 → ER FS 17:34
DX: R00.2 Palpitations (principal); F41.1 Generalized anxiety disorder; E86.0 Dehydration; I10 Essential (primary) hypertension; R00.0 Tachycardia, unspecified; E66.01 Morbid (severe) obesity due to excess calories; Z28.310 Unvaccinated for COVID-19
CPT/HCPCS: 36415; 71045; 80053; 80306; 81000; 83690; 83735; 83874; 83880; 84484; 85007; 85027; 85610; 85730; 87088; 93005; 93041

== ENCOUNTER → 2022-04-09 | Outpatient (CLI) | payer MEDICAID ==
[~2022-04-09] MED LIST changes: +MTP25TSR PO
--- NOTE | 2022-04-09 10:56 | Diagnostic Imaging Report ---
EXAMINATION: CT of the temporal bones without contrast. INDICATION: Eustachian tube dysfunction. Ear pain. COMPARISON: 02/09/2022. TECHNIQUE: Thin section helical CT was performed through the temporal bones without contrast and reformatted into coronal and sagittal planes. Dose reduction techniques were utilized. FINDINGS: On the right, the external auditory canal is patent. There is no evidence of thickening of the tympanic membrane. The ossicles on the right appear intact. Retained secretions are seen in the epitympanum of the right middle ear cavity, including Prussak's space. There is thinning and possible dehiscence of the tegmen tympani. The scutum appears intact. The tegmen mastoideum is intact. The internal auditory canal is of normal size. The course of the facial nerve is normal. There is no evidence of jugular bulb dehiscence. There is no aberrancy of the right internal carotid artery. The mastoid air cells are clear. There is thinning of the roof of the superior semicircular canal on the right. The cochlea and vestibule demonstrate normal CT appearances. There is no enlargement of the vestibular aqueduct. On the left, the external auditory canal is patent. There is no evidence of thickening of the tympanic membrane. The ossicles on the left appear intact. There is no evidence of soft tissue identified within the middle ear. There is no evidence of bony erosion. The scutum appears intact. The tegmen tympani and tegmen mastoideum are intact. The internal auditory canal is of normal size. The course of the facial nerve is normal. There is no evidence of jugular bulb dehiscence. There is no aberrancy of the left internal carotid artery. The mastoid air cells are clear. There is thinning of the roof of the superior semicircular canal on the left. The cochlea and vestibule demonstrate normal CT appearances. There is no enlargement of the vestibular aqueduct. Visualized intracranial contents demonstrate no evidence of mass effect. The basilar cisterns are patent. Temporomandibular joints are within normal limits. IMPRESSION: 1. Opacification of the epitympanum of the right middle ear cavity involving Prussak's space. There is also possible dehiscence involving the tegmen tympani on the right. The ossicles on the right are intact. Findings can be seen with otitis media or cholesteatoma. Recommend correlation with patient symptoms and history and follow-up as indicated. 2. Right-sided mastoid effusion. 3. Thinning of the roof of the superior semicircular canals bilaterally. 4. Unremarkable appearance of the left middle ear cavity. Dictated by: Dictated on workstation # [id number]
== END ==
LOC: RAD FS 09:55
PROVIDERS: ATTEND Otolaryngology
DX: H69.83 Other specified disorders of Eustachian tube, bilateral (principal); H90.0 Conductive hearing loss, bilateral; H70.11 Chronic mastoiditis, right ear
CPT/HCPCS: 70480

== ENCOUNTER → 2022-04-11 | Outpatient (CLI) | payer MEDICAID ==
[~2022-04-11] MED LIST changes: +CATHETER FLUSH 10 ML SYR IVP PRN
--- NOTE | 2022-04-11 14:55 | Diagnostic Imaging Report ---
INDICATION: Right upper quadrant pain EXAMINATION:: HIDA scan 04/11/2022 FINDINGS: After uneventful administration of 5.31 mCi of technetium mebrofenin intravenously subsequent imaging is performed. There is prompt homogeneous uptake throughout the liver. Gallbladder and small bowel loops seen within less than 45 minutes. At 45 minutes 8 ounces of Ensure ingested orally. Continued imaging is performed with ejection fraction calculated at 50.7% IMPRESSION: 1. No obstructive process. 2. Normal ejection fraction. Dictated by: Dictated on workstation # [id number]
== END ==
LOC: CARD 12:00
PROVIDERS: ATTEND Family Medicine
DX: R10.11 Right upper quadrant pain (principal)
CPT/HCPCS: 78227; A9537

== ENCOUNTER 2022-04-24 21:10 | Emergency (ER) | payer MEDICAID ==
[~2022-04-24] VITALS: Ht 185 cm; Wt 180.0 kg
[~2022-04-24 21:10] MED LIST changes: -CATHETER FLUSH 10 ML SYR IVP PRN
[2022-04-24 21:17] VITALS: BP 144/101
--- NOTE | 2022-04-24 21:45 | ED General ---
General Chief Complaint: General Problems/Pain Stated Complaint: NECK PAIN,ARMS AND LEGS TINGLING Nursing Triage Note: Pt c/o head/neck pain and tingling to bilateral legs today. Pt reports hx of anxiety and it feels similar. Denies injury or trauma to head/neck. Ambultory with steady gait to ED. Source of Information: Patient History of Present Illness Date Seen by Provider: Apr 24, 2022 Time Seen by Provider: 21:34 Initial Comments 36-year-old male presenting with complaints of headache and having face and leg tingling. He has had anxiety in the past that gave some similar symptoms. He also has been having chronic headaches and recently had a CT scan specifically to look at his ear canals and auditory system. He is to follow-up with ENT on Friday about this. He denies any acute trauma or fall. He feels like he needs to pop his neck. He denies fever, chills, nausea, vomiting. He had tried taking Tylenol for the pain but it was not helping. Severity: Moderate Modifying Factors: worse with Movement Associated Systoms: No Chest Pain, No Cough, No Diaphoresis, No Fever/Chills; Headaches (Chronic right-sided); No Loss of Appetite, No Malaise, No Nausea/Vomiting, No Rash, No Seizure, No Shortness of Air, No Syncope, No Weakness Allergies and Home Medications Allergies Coded Allergies: amoxicillin (Verified Allergy, Unknown, 02/16/21) Patient Home Medication List Home Medication List Reviewed: Yes Aspirin (Aspirin EC) 81 Mg Tablet.dr, 81 MG PO DAILY Prescribed by: KASIE HARRIS on 06/27/21 1002 Dicyclomine HCl (Dicyclomine HCl) 20 Mg Tablet, 20 MG PO QID PRN for abdominal pain/nausea Prescribed by: NASIM MILLER on 03/19/22 2223 Famotidine (Pepcid) 20 Mg Tablet, 20 MG PO BID Prescribed by: KASIE HARRIS on 06/27/21 1002 Hydroxyzine Pamoate (Vistaril) 50 Mg Capsule, 50 MG PO Q6H PRN for AGITATION Prescribed by: ABRAHAM BARBER on 02/19/20 1034 Lisinopril/Hydrochlorothiazide (Lisinopril-Hctz 10-12.5 mg Tab) 1 Each Tablet, 1 EACH PO DAILY Prescribed by: ABRAHAM BARBER on 02/19/20 1034 Metoprolol Succinate (Metoprolol Succinate) 50 Mg Tab.er.24h, 50 MG PO DAILY Prescribed by: KASIE HARRIS on 02/16/212200 Metoprolol Succinate (Metoprolol Succinate) 25 Mg Tab.er.24h, 25 MG PO DAILY Prescribed by: NASIM MILLER on 03/24/22 183 Ondansetron (Ondansetron Odt) 4 Mg Tab.rapdis, 4 MG PO Q6H PRN for NAUSEA/VOM ITING Prescribed by: NASIM MILLER on 07/07/212049 Ondansetron (Ondansetron Odt) 4 Mg Tab.rapdis, 4 MG PO Q8H Prescribed by: GUANAKO ALONSO on 02/10/22 005 Pantoprazole Sodium (Pantoprazole Sodium) 40 Mg Tablet.dr, 40 MG PO DAILY Prescribed by: NASIM MILLER on 07/07/212049 Review of Systems Review of Systems Constitutional: No chills, No fever EENTM: see HPI Respiratory: no symptoms reported Cardiovascular: no symptoms reported Gastrointestinal: no symptoms reported Genitourinary: no symptoms reported Musculoskeletal: neck pain (Pain at the base of his neck and feels like he needs to pop his neck) Skin: No rash Psychiatric/Neurological: See HPI Hematologic/Lymphatic: Denies Blood Clots Past Znsvynb-Lvirnj-Ryyene Hx Patient Social History Tobacco Use?: Yes Tobacco type used: Cigarettes Smoking Status: Current Everyday Smoker Use of E-Cig and/or Vaping dev: No Substance use?: Yes Substance type: Marijuana Substance frequency: Couple times a week Alcohol Use?: No Pt feels they are or have been: No Immunizations Up To Date First/Initial COVID19 Vaccinat: denies Second COVID19 Vaccination Dwaine: Unvaccinated Third COVID19 Vaccination Date: Unvaccinated Seasonal Allergies Seasonal Allergies: No Past Medical History Surgery/Hospitalization HX: HTN, Morbid Obesity, Anxiety Surgeries: Yes Tonsillectomy Respiratory: No Cardiac: Yes Hypertension Neurological: No Genitourinary: No Gastrointestinal: No Musculoskeletal: Yes Scoliosis Endocrine: No HEENT: No Cancer: No Psychosocial: Yes Anxiety Integumentary: No Blood Disorders: No Physical Exam Vital Signs Vital Signs - First Documented 04/24/22 21:17 Temp 36.6 Pulse 100 Resp 20 B/P (MAP) 144/101 (115) Pulse Ox 98 O2 Delivery Room Air Capillary Refill : Less Than 3 Seconds Height, Weight, BMI Height: 6'1.00" Weight: 375lbs. oz. 170.783518nn; 52.00 BMI Method:Stated General Appearance: No Apparent Distress, Anxious, Obese HEENT: PERRL/EOMI, Pharynx Normal, Other (Blue tympanostomy tubes are present bilaterally. He has no drainage from either tube. There are some opacification of the TM on the right. He has negative harley sign, negative raccoon sign, negative CSF otorrhea, negative CSF rhinorrhea.) Neck: Full Range of Motion, Supple, Tender Midline (Tender over the muscles at the base of the skull. There is no step-off or crepitus) Respiratory: Chest Non Tender, Lungs Clear, Normal Breath Sounds, No Accessory Muscle Use, No Respiratory Distress Cardiovascular: Regular Rate, Rhythm, Normal Peripheral Pulses Gastrointestinal: Normal Bowel Sounds, No Pulsatile Mass, Non Tender, Soft Neurologic/Psychiatric: Alert, Oriented x3, nursing staff development coordinator II-XII Norm as Tested Skin: Normal Color, Warm/Dry Progress/Results/Core Measures Suspected Sepsis SIRS Temperature: Pulse: 100 Respiratory Rate: 20 Laboratory Tests 04/24/22 22:20: White Blood Count 11.7H Blood Pressure 144 /101 Mean: 115 Laboratory Tests 04/24/22 22:20: Creatinine 0.86, Platelet Count 184, Total Bilirubin 0.3 Results/Orders Lab Results Laboratory Tests Test 04/24/22 22:20 Range/Units White Blood Count 11.7 H 4.3-11.0 10^3/uL Red Blood Count 5.65 H 4.30-5.52 10^6/uL Hemoglobin 17.1 13.3-17.7 g/dL Hematocrit 50 40-54 % Mean Corpuscular Volume 88 80-99 fL Mean Corpuscular Hemoglobin 30 25-34 pg Mean Corpuscular Hemoglobin Concent 34 32-36 g/dL Red Cell Distribution Width 13.1 10.0-14.5 % Platelet Count 184 130-400 10^3/uL Mean Platelet Volume 10.8 9.0-12.2 fL Immature Granulocyte % (Auto) 0 % Neutrophils (%) (Auto) 48 42-75 % Lymphocytes (%) (Auto) 17 12-44 % Monocytes (%) (Auto) 4 0-12 % Eosinophils (%) (Auto) 29 H 0-10 % Basophils (%) (Auto) 1 0-10 % Neutrophils # (Auto) 5.6 1.8-7.8 10^3/uL Lymphocytes # (Auto) 2.0 1.0-4.0 10^3/uL Monocytes # (Auto) 0.5 0.0-1.0 10^3/uL Eosinophils # (Auto) 3.4 H 0.0-0.3 10^3/uL Basophils # (Auto) 0.1 0.0-0.1 10^3/uL Immature Granulocyte # (Auto) 0.0 0.0-0.1 10^3/uL Neutrophils % (Manual) 44 % Lymphocytes % (Manual) 17 % Monocytes % (Manual) 6 % Eosinophils % (Manual) 32 % Basophils % (Manual) 0 % Band Neutrophils 1 % Sodium Level 133 L 135-145 MMOL/L Potassium Level 3.8 3.6-5.0 MMOL/L Chloride Level 101 98-107 MMOL/L Carbon Dioxide Level 22 21-32 MMOL/L Anion Gap 10 5-14 MMOL/L Blood Urea Nitrogen 11 7-18 MG/DL Creatinine 0.86 0.60-1.30 MG/DL Estimat Glomerular Filtration Rate 117 BUN/Creatinine Ratio 13 Glucose Level 131 H 70-105 MG/DL Calcium Level 9.5 8.5-10.1 MG/DL Corrected Calcium 9.3 8.5-10.1 MG/DL Total Bilirubin 0.3 0.1-1.0 MG/DL Aspartate Amino Transf (AST/SGOT) 19 5-34 U/L Alanine Aminotransferase (ALT/SGPT) 33 0-55 U/L Alkaline Phosphatase 64 40-136 U/L Total Protein 6.9 6.4-8.2 GM/DL Albumin 4.2 3.2-4.5 GM/DL My Orders Orders - NASIM MILLER MD Comprehensive Metabolic Panel (04/24/22 22:08) Cbc With Automated Diff (04/24/22 22:08) Ketorolac Injection (Toradol Injection) (04/24/22 22:08) Manual Differential (04/24/22 22:20) Vital Signs/I&O 04/24/22 21:17 Temp 36.6 Pulse 100 Resp 20 B/P (MAP) 144/101 (115) Pulse Ox 98 O2 Delivery Room Air Capillary Refill : Less Than 3 Seconds Blood Pressure Mean: 115 Progress Note #1: Progress Note Discussed with patient that he has had recent CT scan imaging specifically of his ears and then in January had CT of his head and cervical spine. Since he has had no trauma or acute injury will defer repeat imaging. Ordered basic labs to ensure that there was no acute significant change in his blood count or chemistry panel. Try dose of Toradol to help with pain. Progress Note #2: Progress Note Labs appear stable with chronic mild elevation of the white blood cell count. He has no acute significant abnormality on his chemistry panel. He did have some improvement with the Toradol. Counseled to keep appointment on Friday with ENT and see what they recommend in terms of the findings for chronic otitis media and mastoid effusion on the right side. In the meantime advised that he could take ibuprofen 1-2 times a day if needed to help with pain until they could figure out better what they wanted to do from an ENT standpoint. He has avoided taking ibuprofen because he takes Metroprolol and was told not to take the 2 together. Counseled that if he is just doing it here and there he will sh ould be okay and the bigger issue would be if he was taking it every day multiple times a day Departure Impression Primary Impression: Chronic headaches Qualified Codes: R51.9 - Headache, unspecified; G89.29 - Other chronic pain Additional Impression: Chronic otitis media of right ear after insertion of tympanic ventilation tube Disposition: HOME, SELF-CARE Condition: Stable Departure-Patient Inst. Decision time for Depature: 23:06 Referrals: ISRA VALLE MD (PCP/Family) Primary Care Physician Patient Instructions: Ear Infections (Otitis Media) in Adults (DC), Headache, Adult ED Add. Discharge Instructions: The CT scan of your ears and auditory canal shows fluid in your middle ear and the Mastoid cells on the right. This could be contributing to your headaches and symptoms Try Ibuprofen 800 mg (4 of the over the counter pills) once or twice a day until you see your ENT doctor on Friday and see what they recommend. All discharge instructions reviewed with patient and/or family. Voiced understanding. NASIM MILLER MD Apr 24, 2022 21:45
[2022-04-24] MEDS ORDERED: KETOROLAC 60 MG/2 ML VIAL IM STA (22:08)
[2022-04-24 22:26] LABS: BASOPHILS # (AUTO) 0.1 10^3/uL (0.0-0.1); BASOPHILS % (AUTO) 1 % (0-10); EOSINOPHILS # (AUTO) 3.4 10^3/uL (0.0-0.3); EOSINOPHILS % (AUTO) 29 % (0-10); HEMATOCRIT 50 % (40-54); HEMOGLOBIN 17.1 g/dL (13.3-17.7); LYMPHOCYTES % (AUTO) 17 % (12-44); MEAN CORPUSCULAR HEMOGLOBIN 30 pg (25-34); MEAN CORPUSCULAR HGB CONC 34 g/dL (32-36); MEAN CORPUSCULAR VOLUME 88 fL (80-99); MEAN PLATELET VOLUME 10.8 fL (9.0-12.2); MONOCYTES # (AUTO) 0.5 10^3/uL (0.0-1.0); MONOCYTES % (AUTO) 4 % (0-12); NEUTROPHILS # (AUTO) 5.6 10^3/uL (1.8-7.8); NEUTROPHILS % (AUTO) 48 % (42-75); PLATELET COUNT 184 10^3/uL (130-400); WHITE BLOOD COUNT 11.7 10^3/uL (4.3-11.0)
[2022-04-24 22:53] LABS: POTASSIUM 3.8 MMOL/L (3.6-5.0)
[2022-04-24 22:54] LABS: ALBUMIN 4.2 GM/DL (3.2-4.5); BILIRUBIN,TOTAL 0.3 MG/DL (0.1-1.0); CALCIUM 9.5 MG/DL (8.5-10.1); CREATININE SERUM 0.86 MG/DL (0.60-1.30); TOTAL PROTEIN 6.9 GM/DL (6.4-8.2)
[2022-04-24 22:55] LABS: BAND NEUTROPHILS 1 %; BASOPHILS % (MANUAL) 0 %; EOSINOPHILS % (MANUAL) 32 %; LYMPHOCYTES % (MANUAL) 17 %; MONOCYTES % (MANUAL) 6 %; NEUTROPHILS % (MANUAL) 44 %
== END 2022-04-24 23:10 | disposition home or self-care (01) ==
LOC: EDUNIT# 21:10 → ER FS 21:11
DX: R51.9 Headache, unspecified (principal); G89.29 Other chronic pain; H66.91 Otitis media, unspecified, right ear; D72.829 Elevated white blood cell count, unspecified; I10 Essential (primary) hypertension; E66.01 Morbid (severe) obesity due to excess calories; Z68.43 Body mass index [BMI] 50.0-59.9, adult; Z96.22 Myringotomy tube(s) status; Z79.899 Other long term (current) drug therapy; Z28.310 Unvaccinated for COVID-19
CPT/HCPCS: 36415; 80053; 85007; 85027

== ENCOUNTER 2022-07-18 00:55 | Emergency (ER) | payer MEDICAID ==
[~2022-07-18] VITALS: Ht 182.8 cm; Wt 181.4 kg
--- NOTE | 2022-07-18 01:27 | ED General ---
General Stated Complaint: NAUSEA,DIAHRREA,HEART PALPS Source of Information: Patient, Old Records History of Present Illness Date Seen by Provider: Jul 18, 2022 Time Seen by Provider: 00:48 Initial Comments 36-year-old male presenting with complaints of feeling his heart pounding in his chest, nausea with diarrhea x2 days, pressure in his head, pain and sensation of fluid in his right ear. He states the diarrhea and nausea has been present for 2 days. His chest pounding and pressure started around noon. He has been able to keep down his medications however anything else he tries to eat or drink he says passes straight through him. He denies ill contacts, fever, chills, abdominal pain, pain with urination, blood in his urine, blood in his stool. Timing/Duration: 1-2 Days (1 to 2 days of diarrhea but headache and heart pounding started around noon on 17 July 2022) Severity: Moderate Modifying Factors: worse with Movement (Activity makes his symptoms worse) Associated Systoms: Chest Pain (Pounding or pressure in his chest); No Cough, No Diaphoresis, No Fever/Chills; Headaches (Frontal headache and right ear pain); No Loss of Appetite, No Malaise; Nausea/Vomiting (Nausea but no vomiting); No Rash, No Seizure, No Shortness of Air, No Syncope, No Weakness Allergies and Home Medications Allergies Coded Allergies: amoxicillin (Verified Allergy, Unknown, 02/16/21) Patient Home Medication List Home Medication List Reviewed: Yes Aspirin (Aspirin EC) 81 Mg Tablet.dr, 81 MG PO DAILY Prescribed by: KASIE HARRIS on 06/27/21 1002 Cefdinir (Cefdinir) 300 Mg Capsule, 300 MG PO BID Prescribed by: NASIM MILLER on 07/18/22 0243 Dicyclomine HCl (Dicyclomine HCl) 20 Mg Tablet, 20 MG PO QID PRN for abdominal pain/nausea Prescribed by: NASIM MILLER on 03/19/22 2223 Famotidine (Pepcid) 20 Mg Tablet, 20 MG PO BID Prescribed by: KASIE HARRIS on 06/27/21 1002 Hydroxyzine Pamoate (Vistaril) 50 Mg Capsule, 50 MG PO Q6H PRN for AGITATION Prescribed by: ABRAHAM BARBER on 02/19/20 1034 Lisinopril/Hydrochlorothiazide (Lisinopril-Hctz 10-12.5 mg Tab) 1 Each Tablet, 1 EACH PO DAILY Prescribed by: ABRAHAM BARBER on 02/19/20 1034 Metoprolol Succinate (Metoprolol Succinate) 50 Mg Tab.er.24h, 50 MG PO DAILY Prescribed by: KASIE HARRIS on 02/16/21 2201 Metoprolol Succinate (Metoprolol Succinate) 25 Mg Tab.er.24h, 25 MG PO DAILY Prescribed by: NASIM MILLER on 03/24/22 1836 Ondansetron (Ondansetron Odt) 4 Mg Tab.rapdis, 4 MG PO Q6H PRN for NAUS EA/VOMITING Prescribed by: NASIM MILLER on 07/07/212049 Ondansetron (Ondansetron Odt) 4 Mg Tab.rapdis, 4 MG PO Q8H Prescribed by: GUANAKO ALONSO on 02/10/22 0058 Ondansetron (Ondansetron Odt) 4 Mg Tab.rapdis, 4 MG PO Q6H PRN for NAUSEA/VOMITING Prescribed by: NASIM MILLER on 07/18/22 0243 Pantoprazole Sodium (Pantoprazole Sodium) 40 Mg Tablet.dr, 40 MG PO DAILY Prescribed by: NASIM MILLER on 07/07/212049 Review of Systems Review of Systems Constitutional: No chills, No dizziness, No fever EENTM: ear pain (Right ear pain with pressure and sensation of fluid); No ear discharge, No eye pain, No vision loss, No epistaxis, No nose congestion Respiratory: No short of breath Cardiovascular: see HPI Gastrointestinal: see HPI; No abdominal pain; diarrhea, nausea; No vomiting Genitourinary: no symptoms reported Musculoskeletal: no symptoms reported Skin: No rash Psychiatric/Neurological: See HPI Past Kxcfuub-Vzsaie-Oojwzz Hx Immunizations Up To Date First/Initial COVID19 Vaccinat: denies Second COVID19 Vaccination Dwaine: Unvaccinated Third COVID19 Vaccination Date: Unvaccinated Seasonal Allergies Seasonal Allergies: No Past Medical History Surgery/Hospitalization HX: HTN, Morbid Obesity, Anxiety Surgeries: Yes Tonsillectomy Respiratory: No Cardiac: Yes Hypertension Neurological: No Genitourinary: No Gastrointestinal: No Musculoskeletal: Yes Scoliosis Endocrine: No HEENT: No Cancer: No Psychosocial: Yes Anxiety Integumentary: No Blood Disorders: No Physical Exam Vital Signs Vital Signs - First Documented 07/18/22 00:55 Temp 36.5 Pulse 94 Resp 17 B/P (MAP) 171/95 (120) Pulse Ox 99 O2 Delivery Room Air Capillary Refill : Height, Weight, BMI Height: 6'1.00" Weight: 375lbs. oz. 170.254118ve; 52.00 BMI Method:Stated General Appearance: Anxious, Obese HEENT: PERRL/EOMI, Normal ENT Inspection, Pharynx Normal; No Photophobia; Other (Bilateral dullness to his TMs and cerumen present in the canal on both sides. There is an effusion behind his right TM. There is no erythema) Neck: Full Range of Motion, Normal Inspection, Non Tender, Supple Respiratory: Chest Non Tender, Lungs Clear, Normal Breath Sounds, No Accessory Muscle Use, No Respiratory Distress Cardiovascular: Regular Rate, Rhythm, Normal Peripheral Pulses Gastrointestinal: Normal Bowel Sounds, No Pulsatile Mass, Non Tender, Soft Rectal: Deferred Extremity: Normal Capillary Refill, Normal Inspection, No Pedal Edema Neurologic/Psychiatric: Alert, Oriented x3, communications planner II-XII Norm as Tested Skin: Normal Color, Warm/Dry; No Rash Progress/Results/Core Measures Suspected Sepsis SIRS Temperature: Pulse: Respiratory Rate: Laboratory Tests 07/18/22 01:00: White Blood Count 13.9H Blood Pressure / Mean: Laboratory Tests 07/18/22 01:00: Creatinine 0.94, Platelet Count 193, Total Bilirubin 0.2 Results/Orders Lab Results Laboratory Tests Test 07/18/22 01:00 07/18/22 01:45 Range/Units White Blood Count 13.9 H 4.3-11.0 10^3/uL Red Blood Count 5.22 4.30-5.52 10^6/uL Hemoglobin 15.7 13.3-17.7 g/dL Hematocrit 46 40-54 % Mean Corpuscular Volume 87 80-99 fL Mean Corpuscular Hemoglobin 30 25-34 pg Mean Corpuscular Hemoglobin Concent 34 32-36 g/dL Red Cell Distribution Width 13.0 10.0-14.5 % Platelet Count 193 130-400 10^3/uL Mean Platelet Volume 10.8 9.0-12.2 fL Immature Granulocyte % (Auto) 0 % Neutrophils (%) (Auto) 30 L 42-75 % Lymphocytes (%) (Auto) 20 12-44 % Monocytes (%) (Auto) 4 0-12 % Eosinophils (%) (Auto) 46 H 0-10 % Basophils (%) (Auto) 1 0-10 % Neutrophils # (Auto) 4.1 1.8-7.8 10^3/uL Lymphocytes # (Auto) 2.8 1.0-4.0 10^3/uL Monocytes # (Auto) 0.6 0.0-1.0 10^3/uL Eosinophils # (Auto) 6.3 H 0.0-0.3 10^3/uL Basophils # (Auto) 0.1 0.0-0.1 10^3/uL Immature Granulocyte # (Auto) 0.0 0.0-0.1 10^3/uL Neutrophils % (Manual) 40 % Lymphocytes % (Manual) 13 % Monocytes % (Manual) 2 % Eosinophils % (Manual) 43 % Reactive Lymphocytes 2 % Platelet Estimate NORMAL Blood Morphology Comment NORMAL Sodium Level 137 135-145 MMOL/L Potassium Level 4.3 3.6-5.0 MMOL/L Chloride Level 104 98-107 MMOL/L Carbon Dioxide Level 23 21-32 MMOL/L Anion Gap 10 5-14 MMOL/L Blood Urea Nitrogen 19 H 7-18 MG/DL Creatinine 0.94 0.60-1.30 MG/DL Estimat Glomerular Filtration Rate 109 BUN/Creatinine Ratio 20 Glucose Level 107 H 70-105 MG/DL Calcium Level 9.5 8.5-10.1 MG/DL Corrected Calcium 9.4 8.5-10.1 MG/DL Total Bilirubin 0.2 0.1-1.0 MG/DL Aspartate Amino Transf (AST/SGOT) 13 5-34 U/L Alanine Aminotransferase (ALT/SGPT) 20 0-55 U/L Alkaline Phosphatase 64 40-136 U/L Troponin I < 0.30 <0.30 NG/ML Pro-B-Type Natriuretic Peptide 21.4 <125.0 PG/ML Total Protein 6.7 6.4-8.2 GM/DL Albumin 4.1 3.2-4.5 GM/DL Lipase 27 8-78 U/L Urine Color YELLOW Urine Clarity CLEAR Urine pH 6.0 5-9 Urine Specific [place] >=1.030 1.016-1.022 Urine Protein NEGATIVE NEGATIVE Urine Glucose (UA) NEGATIVE NEGATIVE Urine Ketones NEGATIVE NEGATIVE Urine Nitrite NEGATIVE NEGATIVE Urine Bilirubin NEGATIVE NEGATIVE Urine Urobilinogen 0.2 < = 1.0 MG/DL Urine Leukocyte Esterase NEGATIVE NEGATIVE Urine RBC (Auto) NEGATIVE NEGATIVE Urine RBC RARE /HPF Urine WBC RARE /HPF Urine Squamous Epithelial Cells 5-10 /HPF Urine Crystals NONE /LPF Urine Bacteria FEW H /HPF Urine Casts NONE /LPF Urine Mucus LARGE H /LPF Urine Culture Indicated NO My Orders Orders - NASIM MILLER MD Cbc With Automated Diff (07/18/22:27) Ekg Tracing (07/18/22:27) Comprehensive Metabolic Panel (07/18/22:27) O2 (07/18/22:27) Monitor-Rhythm Ecg Trace Only (07/18/22:27) Ed Iv/Invasive Line Start (07/18/22 01:27) Lipase (07/18/22 01:27) Troponin I Fs (07/18/22:27) Probnp Fs (07/18/22:27) Ua Culture If Indicated (07/18/22:27) Ns Iv 1000 Ml (Sodium Chloride 0.9%) (07/18/22 01:28) Ondansetron Injection (Zofran Injectio (07/18/22 01:28) Metoprolol Tartrate Injection (Lopressor (07/18/22 01:28) Manual Differential (07/18/22 01:00) Ceftriaxone 1 Gm Pre-Mix (Rocephin 1 Gm (07/18/22 02:34) Ketorolac Injection (Toradol Injection) (07/18/22 02:34) Rx-Ondansetron Po (Rx-Zofran Po) (07/18/22 02:45) Medications Given in ED Current Medications Medications Dose Ordered Sig/Erika Route Start Time Stop Time Status Last Admin Dose Admin Ondansetron HCl 4 mg Q6H PRN PO 07/18/22 02:45 07/18/22 03:10 DC 07/18/22 02:42 4 MG Vital Signs/I&O 07/18/22 07/18/22 07/18/22 07/18/22 00:55 01:14 01:30 01:45 Temp 36.5 Pulse 94 72 74 69 Resp 17 17 18 19 B/P (MAP) 171/95 (120) 165/95 (118) 136/76 (96) 152/76 (101) Pulse Ox 99 97 97 96 O2 Delivery Room Air Room Air Room Air Room Air 07/18/22 07/18/22 02:00 03:01 Pulse 65 63 Resp 15 17 B/P (MAP) 148/80 (102) 156/84 Pulse Ox 96 98 O2 Delivery Room Air Room Air Capillary Refill : Progress Note #1: Progress Note Obtain basic labs and EKG with cardiac enzymes. Give normal saline 1 L IV fluid bolus for hydration. Check urinalysis for dehydration. Zofran 4 mg IV for nausea and metoprolol 5 mg IV for hypertension and head pressure. Progress Note #2: Progress Note Labs are all stable for him without acute significant abnormality. He has chronic mild elevation of his white blood cell count with elevated eosinophils. This has been seen on multiple previous blood counts. His chemistry does not s how any acute significant abnormality other than mild elevation of his glucose. His heart enzymes are negative. Urinalysis shows increased specific gravity to go along with dehydration. Encourage fluids and hydration at home. Prescribe Zofran to help keep his stomach settled. Try a course of antibiotics to help treat for the chronic serous otitis media. Continue with the topical eardrops as well. He may need follow-up with a different ENT for his recurrent ear infections. Consider checking with Dr. Gao locally. follow-up with clinic for continued concerns ECG Initial ECG Impression Date: Jul 18, 2022 Initial ECG Impression Time: 00:58 Initial ECG Rate: 89 Initial ECG Impression: Normal Initial ECG Comparisson: Unchanged Comment Normal sinus rhythm with a heart rate of 89 bpm. SC interval 200 ms. QT interval 312 ms with a QTc interval 358 ms. There is no acute ST elevation. He does have baseline wander on his tracing especially in V2. Overall appears similar to prior tracings in the system. Departure Impression Primary Impression: Nausea alone Additional Impressions: Diarrhea in adult patient Hypertension Qualified Codes: I10 - Essential (primary) hypertension Chronic serous otitis media, right ear Dehydration Disposition: HOME, SELF-CARE Condition: Stable Departure-Patient Inst. Decision time for Depature: 02:43 Referrals: DAMIR GAO MD, PANKAJ K MD (PCP/Family) Primary Care Physician Patient Instructions: Fluid in the Ear ED, High Blood Pressure ED, Nausea and Vomiting, Adult ED, Diarrhea, Adult ED, Dehydration, Adult ED Add. Discharge Instructions: Stay well-hydrated and continue with water and electrolyte drinks. Continue to take your regular medications. Use the dissolving Zofran tablet if needed for nausea. Take full course of antibiotics to help treat for fluid behind the eardrum on the right side. Check back through the clinic for continued concerns. Scripts Cefdinir (Cefdinir) 300 Mg Capsule 300 MG PO BID for serous otitis media for 7 Days, #14 CAP 0 Refills Prov: NASIM MILLER MD 07/18/22 Ondansetron (Ondansetron Odt) 4 Mg Tab.rapdis 4 MG PO Q6H PRN for NAUSEA/VOMITING for 5 Days, #20 TAB 0 Refills Prov: NASIM MILLER MD 07/18/22 NASIM MILLER MD Jul 18, 2022 01:27
[2022-07-18] MEDS ORDERED: NS IV 1000 ML 1,000 ML IV STA (01:28)
[2022-07-18] MEDS ORDERED: ONDANSETRON 4 MG/2 ML (SDV) Z0FRAN IVP STA (01:28)
[2022-07-18] MEDS ORDERED: meTOprolol 5 MG/5 ML (LOPRESSOR) VIAL IV STA (01:28)
[2022-07-18 01:38] LABS: BASOPHILS # (AUTO) 0.1 10^3/uL (0.0-0.1); BASOPHILS % (AUTO) 1 % (0-10); EOSINOPHILS # (AUTO) 6.3 10^3/uL (0.0-0.3); EOSINOPHILS % (AUTO) 46 % (0-10); HEMATOCRIT 46 % (40-54); HEMOGLOBIN 15.7 g/dL (13.3-17.7); LYMPHOCYTES # (AUTO) 2.8 10^3/uL (1.0-4.0); LYMPHOCYTES % (AUTO) 20 % (12-44); MEAN CORPUSCULAR HEMOGLOBIN 30 pg (25-34); MEAN CORPUSCULAR HGB CONC 34 g/dL (32-36); MEAN CORPUSCULAR VOLUME 87 fL (80-99); MEAN PLATELET VOLUME 10.8 fL (9.0-12.2); MONOCYTES # (AUTO) 0.6 10^3/uL (0.0-1.0); MONOCYTES % (AUTO) 4 % (0-12); NEUTROPHILS # (AUTO) 4.1 10^3/uL (1.8-7.8); NEUTROPHILS % (AUTO) 30 % (42-75); PLATELET COUNT 193 10^3/uL (130-400); WHITE BLOOD COUNT 13.9 10^3/uL (4.3-11.0)
[2022-07-18 01:57] LABS: BILIRUBIN,URINE NEGATIVE (NEGATIVE); CLARITY,URINE CLEAR; COLOR,URINE YELLOW; GLUCOSE, URINE (UA) NEGATIVE (NEGATIVE); KETONES,URINE NEGATIVE (NEGATIVE); LEUKOCYTE ESTERASE ,URINE NEGATIVE (NEGATIVE); NITRITE,URINE NEGATIVE (NEGATIVE); PROTEIN,URINE NEGATIVE (NEGATIVE)
[2022-07-18 02:08] LABS: BACTERIA,URINE FEW /HPF; RBC,URINE RARE /HPF; WBC,URINE RARE /HPF
[2022-07-18 02:09] LABS: EOSINOPHILS % (MANUAL) 43 %; LYMPHOCYTES % (MANUAL) 13 %; MONOCYTES % (MANUAL) 2 %; NEUTROPHILS % (MANUAL) 40 %; REACTIVE LYMPHOCYTES 2 %
[2022-07-18 02:10] LABS: PLATELET ESTIMATE NORMAL; RBC MORPH NORMAL
[2022-07-18 02:11] LABS: POTASSIUM 4.3 MMOL/L (3.6-5.0)
[2022-07-18 02:12] LABS: ALBUMIN 4.1 GM/DL (3.2-4.5); BILIRUBIN,TOTAL 0.2 MG/DL (0.1-1.0); CALCIUM 9.5 MG/DL (8.5-10.1); CREATININE SERUM 0.94 MG/DL (0.60-1.30); TOTAL PROTEIN 6.7 GM/DL (6.4-8.2)
[2022-07-18] MEDS ORDERED: KETOROLAC 30 MG/ML VIAL IVP STA (02:34)
[2022-07-18] MEDS ORDERED: cefTRIAXone 1 GM PRE-MIX 50 ML IV STA (02:34)
[2022-07-18] MEDS ORDERED: ONDA4TAB11 PO (02:43)
[2022-07-18] MEDS ORDERED: CEFD300C3 PO (02:43)
[2022-07-18] MEDS ORDERED: RX-ONDANSETRON 4 MG ODT (ZOFRAN) PPK #4 PO PRN (02:45)
[2022-07-18 03:01] VITALS: BP 156/84
== END 2022-07-18 03:01 | disposition home or self-care (01) ==
LOC: EDUNIT# 01:18 → ER FS 01:21
DX: I10 Essential (primary) hypertension (principal); H65.21 Chronic serous otitis media, right ear; E86.0 Dehydration; R19.7 Diarrhea, unspecified; D72.829 Elevated white blood cell count, unspecified; E66.01 Morbid (severe) obesity due to excess calories; Z68.43 Body mass index [BMI] 50.0-59.9, adult; Z28.310 Unvaccinated for COVID-19
CPT/HCPCS: 36415; 80053; 81000; 83690; 83880; 84484; 85007; 85027; 93041

== ENCOUNTER 2022-11-15 15:32 | Emergency (ER) | payer MEDICARE, MEDICAID ==
[~2022-11-15 15:32] MED LIST changes: +CEFD300C3 PO
--- NOTE | 2022-11-15 16:21 | ED EENT ---
History of Present Illness General Chief Complaint: Ear Problems Stated Complaint: RT EAR BLEEDING/PAIN Source: patient Exam Limitations: no limitations History of Present Illness Date Seen by Provider: Nov 15, 2022 Time Seen by Provider: 15:45 Initial Comments Patient is a 36-year-old male with history of recurrent otitis media with T tubes who presents with bloody otorrhea from right ear upon waking. Patient reports pressure under his ear earlier today and waking with blood draining from his ear. Patient reports chronic hearing loss. No other symptoms or complaints. Location: other Prearrival Treatment: other Modifying Factors: Improves With Other Associated Symptoms: other Allergies and Home Medications Allergies Coded Allergies: amoxicillin (Verified Allergy, Unknown, 02/16/21) Patient Home Medication List Home Medication List Reviewed: Yes Aspirin (Aspirin EC) 81 Mg Tablet.dr, 81 MG PO DAILY Prescribed by: KASIE HARRIS on 06/27/21 1002 Cefdinir (Cefdinir) 300 Mg Capsule, 300 MG PO BID Prescribed by: NASIM MILLER on 07/18/22 0243 Dicyclomine HCl (Dicyclomine HCl) 20 Mg Tablet, 20 MG PO QID PRN for abdominal pain/nausea Prescribed by: NASIM MILLER on 03/19/22 2223 Famotidine (Pepcid) 20 Mg Tablet, 20 MG PO BID Prescribed by: KASIE HARRIS on 06/27/21 1002 Hydroxyzine Pamoate (Vistaril) 50 Mg Capsule, 50 MG PO Q6H PRN for AGITATION Prescribed by: ABRAHAM BARBER on 02/19/20 1034 Lisinopril/Hydrochlorothiazide (Lisinopril-Hctz 10-12.5 mg Tab) 1 Each Tablet, 1 EACH PO DAILY Prescribed by: ABRAHAM BARBER on 02/19/20 1034 Metoprolol Succinate (Metoprolol Succinate) 50 Mg Tab.er.24h, 50 MG PO DAILY Prescribed by: KASIE HARRIS on 02/16/21 2201 Metoprolol Succinate (Metoprolol Succinate) 25 Mg Tab.er.24h, 25 MG PO DAILY Prescribed by: NASIM MILLER on 03/24/22 1836 Ondansetron (Ondansetron Odt) 4 Mg Tab.rapdis, 4 MG PO Q6H PRN for NAUSEA/VOMITING Prescribed by: NASIM MILLER on 07/07/212049 Ondansetron (Ondansetron Odt) 4 Mg Tab.rapdis, 4 MG PO Q8H Prescribed by: GUANAKO ALONSO on 02/10/22 005 Ondansetron (Ondansetron Odt) 4 Mg Tab.rapdis, 4 MG PO Q6H PRN for NAUSEA/VOMITING Prescribed by: NASIM FAJARDORT on 07/18/22 0243 Pantoprazole Sodium (Pantoprazole Sodium) 40 Mg Tablet.dr, 40 MG PO DAILY Prescribed by: NASIM FAJARDORT on 07/07/212049 Review of Systems Review of Systems Constitutional: see HPI Eyes: See HPI Ears: See HPI Nose: see HPI Mouth: see HPI, clots Throat: see HPI Respiratory: see HPI Cardiovascular: see HPI Gastrointestinal: see HPI Musculoskeletal: see HPI Skin: see HPI Neurological: See HPI Hematologic/Lymphatic: See HPI Immunological/Allergic: see HPI All Other Systems Reviewed Negative Unless Noted: No Past Bjzodex-Gjrxsg-Takbzj Hx Patient Social History Tobacco Use?: No Pt feels they are or have been: No Immunizations Up To Date First/Initial COVID19 Vaccinat: denies Second COVID19 Vaccination Dwaine: denies Third COVID19 Vaccination Date: denies Seasonal Allergies Seasonal Allergies: No Past Medical History Surgery/Hospitalization HX: HTN, Morbid Obesity, Anxiety Surgeries: Yes Tonsillectomy Respiratory: No Cardiac: Yes Hypertension Neurological: No Genitourinary: No Gastrointestinal: No Musculoskeletal: Yes Scoliosis Endocrine: No HEENT: No Cancer: No Psychosocial: Yes Anxiety Integumentary: No Blood Disorders: No Visual Acuity : Eye Location: Right Physical Exam Height, Weight, BMI Height: 6'1.00" Weight: 375lbs. oz. [id number]; 54.00 BMI Method:Stated General Appearance: WD/WN, no apparent distress Eyes: bilateral eye normal inspection, bilateral eye PERRL, bilateral eye EOMI Ears: right ear TM red, right ear TM perforation, right ear other (Bloody otorrhea, no purulent drainage); bilateral ear auricle normal, bilateral ear canal normal Nose: other Mouth/Throat: voice changes Respiratory: other Progress/Results/Core Measures Results/Orders My Orders Orders - LORE HOWE DO Wound Culture (11/15/22 15:55) Departure Communication (Admissions) Right TM perforation with bloody otorrhea. Fluid culture obtained. Will place on oral antibiotics with follow-up with ENT in [place] next week. Impression Primary Impression: Otitis media, acute with perforation of eardrum Disposition: HOME, SELF-CARE Condition: Stable Departure-Patient Inst. Decision time for Depature: 16:30 Referrals: ISRA VALLE MD (PCP) Primary Care Physician Patient Instructions: Ear Infections (Otitis Media) in Adults (DC) Add. Discharge Instructions: You were evaluated in the emergency department for right ear perforation. Fluid culture was obtained. Please take antibiotics as prescribed and take Tylenol ibuprofen as needed for pain and. Do not soak your head or washout your canal. Follow-up with Dr. Gao early next week in the office for review of culture results and for further management. If you develop new or worsening symptoms, return to the emergency department. All discharge instructions reviewed with patient and/or family. Voiced understanding. Scripts Cefdinir (Cefdinir) 300 Mg Capsule 300 MG PO BID, #20 CAP 0 Refills Prov: LORE HOWE DO 11/15/22 LORE HOWE DO Nov 15, 2022 16:21
[2022-11-15] MEDS ORDERED: CEFD300C3 PO (16:32)
[2022-11-15 16:38] VITALS: BP 155/95
== END 2022-11-15 16:40 | disposition home or self-care (01) ==
LOC: EDUNIT# 15:32 → ER FS 15:33
DX: H66.91 Otitis media, unspecified, right ear (principal); H72.91 Unspecified perforation of tympanic membrane, right ear; E66.01 Morbid (severe) obesity due to excess calories; Z68.43 Body mass index [BMI] 50.0-59.9, adult; Z88.0 Allergy status to penicillin; Z28.310 Unvaccinated for COVID-19
CPT/HCPCS: 87070; 87205; 99282

== ENCOUNTER 2023-01-12 09:52 | Emergency (ER) | payer MEDICARE, MEDICAID ==
[~2023-01-12] VITALS: Ht 182.9 cm; Wt 196.0 kg
[2023-01-12 10:03] LABS: CLARITY,URINE CLEAR; GLUCOSE, URINE (UA) NEGATIVE (NEGATIVE); KETONES,URINE TRACE (NEGATIVE); LEUKOCYTE ESTERASE ,URINE NEGATIVE (NEGATIVE); NITRITE,URINE NEGATIVE (NEGATIVE); PH,URINE 6.5 (5-9); PROTEIN,URINE 1+ (NEGATIVE)
[2023-01-12 10:08] LABS: BACTERIA,URINE MODERATE /HPF; BILIRUBIN,URINE 1+ (NEGATIVE); COLOR,URINE DARK YELLOW
--- NOTE | 2023-01-12 10:16 | ED Abdominal Pain ---
General Chief Complaint: Abdominal/GI Problems Stated Complaint: SIMON FLANK PAIN; N/V Source of Information: Patient History of Present Illness Date Seen by Provider: Jan 12, 2023 Time Seen by Provider: 09:56 Initial Comments 37-year-old male presenting with complaints of bilateral flank pain wrapping around both sides but worse on the left. He states this has been going on for "a long time" but has been worse in the last several days. He went to urgent care yesterday and was told that it was sciatica. He got a Toradol shot and was sent home with a prescription for muscle relaxer. He has not picked up the prescription as of yet and usually uses [facility] pharmacy so they will open again tomorrow morning. He states that his pain comes and goes at random times but does seem to be worse when he drinks a lot of water. He took 3 Tylenol this morning for pain and states his pain currently is a 3 out of 10. It is more of a dull ache at this point but at times it spikes up and is sharp and severe. When the pain does increase that is when he gets that nausea and vomiting. He denies any change in his bowel movements and denies pain with urination but states that sometimes it is dark in color. He reports he has been told he has a kidney stone on one of his sides but has not had to do anything with it. He denies fever, chills, diarrhea, constipation, cough, shortness of breath. Timing/Duration: 3-4 Days (Worse in the last few days but has been going on for a while now.) Severity/Quality: Mild, Aching (Currently mild aching bilateral sides left worse than right but at times it does spike up in intensity and is sharp in nature.) Location: Flank (bilateral flank) Radiation: Flank (wrapping around both flanks and going down into his legs) Activities at Onset: None Modifying Factors: Worsens With Other (drinking water seems to make the pain worse at times) Associated Symptoms: Back Pain (bilateral pain in CVA area that wraps around both sides, left worse than right); No Chest Pain, No Diaphoresis, No Fever/Chills, No Fatigue, No Headache, No Heartburn; Nausea/Vomiting (when the pain spikes in intensity); No Rash, No Shortness of Air, No Swelling/Mass in Abdomen, No Syncope, No Weakness Allergies and Home Medications Allergies Coded Allergies: amoxicillin (Verified Allergy, Unknown, 02/16/21) Patient Home Medication List Home Medication List Reviewed: Yes Aspirin (Aspirin EC) 81 Mg Tablet.dr, 81 MG PO DAILY Prescribed by: KASIE HARRIS on 06/27/21 1002 Cefdinir (Cefdinir) 300 Mg Capsule, 300 MG PO BID Prescribed by: ANSIM MILLER on 07/18/22 0243 Cefdinir (Cefdinir) 300 Mg Capsule, 300 MG PO BID Prescribed by: LORE HOWE on 11/15/22 1632 Ciprofloxacin HCl (Ciprofloxacin HCl) 500 Mg Tablet, 500 MG PO BID Prescribed by: NASIM MILLER on 01/12/23 1128 Dicyclomine HCl (Dicyclomine HCl) 20 Mg Tablet, 20 MG PO QID PRN for abdominal pain/nausea Prescribed by: NASIM MILLER on 03/19/22 2223 Famotidine (Pepcid) 20 Mg Tablet, 20 MG PO BID Prescribed by: KASIE HARRIS on 06/27/21 1002 Hydroxyzine Pamoate (Vistaril) 50 Mg Capsule, 50 MG PO Q6H PRN for AGITATION Prescribed by: ABRAHAM BARBER on 02/19/20 1034 Lisinopril/Hydrochlorothiazide (Lisinopril-Hctz 10-12.5 mg Tab) 1 Each Tablet, 1 EACH PO DAILY Prescribed by: ABRAHAM BARBER on 02/19/20 1034 Metoprolol Succinate (Metoprolol Succinate) 50 Mg Tab.er.24h, 50 MG PO DAILY Prescribed by: KASIE HARRIS on 02/16/21 2201 Metoprolol Succinate (Metoprolol Succinate) 25 Mg Tab.er.24h, 25 MG PO DAILY Prescribed by: NASIM MILLER on 03/24/22 1836 Ondansetron (Ondansetron Odt) 4 Mg Tab.rapdis, 4 MG PO Q6H PRN for NAUSEA/VOMITING Prescribed by: NASIM MILLER on 07/07/21 205 Ondansetron (Ondansetron Odt) 4 Mg Tab.rapdis, 4 MG PO Q8H Prescribed by: GUANAKO ALONSO on 02/10/22 0058 Ondansetron (Ondansetron Odt) 4 Mg Tab.rapdis, 4 MG PO Q6H PRN for NAUSEA/VOMITING Prescribed by: NASIM FAJARDORT on 07/18/22 0243 Ondansetron (Ondansetron Odt) 4 Mg Tab.rapdis, 4 MG PO Q6H PRN for NAUSEA/VOMITING Prescribed by: NASIM FAJARDORT on 01/12/23 1128 Pantoprazole Sodium (Pantoprazole Sodium) 40 Mg Tablet.dr, 40 MG PO DAILY Prescribed by: NASIM MILLER on 07/07/212049 Review of Systems Review of Systems Constitutional: chills, fever (subjective hot and cold flashes) EENTM: No Symptoms Reported Respiratory: No Symptoms Reported Cardiovascular: No Symptoms Reported Gastrointestinal: See HPI Genitourinary: See HPI Musculoskeletal: see HPI Skin: No change in color Psychiatric/Neurological: Denies Numbness, Denies Paresthesia Past Glprhhn-Wnfqpc-Tsjbci Hx Patient Social History Tobacco Use?: No Use of E-Cig and/or Vaping dev: Yes E-Cig or Vaping type used: Nicotine Use of E-Cig and/or Vaping Jos: Current Everyday User Substance use?: Yes Substance type: Marijuana Substance frequency: Once in a while Alcohol Use?: No Pt feels they are or have been: No Immunizations Up To Date First/Initial COVID19 Vaccinat: denies Second COVID19 Vaccination Dwaine: denies Third COVID19 Vaccination Date: denies Seasonal Allergies Seasonal Allergies: No Past Medical History Surgery/Hospitalization HX: HTN, Morbid Obesity, Anxiety Surgeries: Yes Tonsillectomy Respiratory: No Cardiac: Yes Hypertension Neurological: No Genitourinary: No Gastrointestinal: No Musculoskeletal: Yes Scoliosis Endocrine: No HEENT: No Cancer: No Psychosocial: Yes Anxiety Integumentary: No Blood Disorders: No Physical Exam Vital Signs Vital Signs - First Documented 01/12/23 10:05 Temp 36.5 Pulse 94 Resp 16 B/P (MAP) 183/96 (125) Pulse Ox 98 O2 Delivery Room Air Capillary Refill : Height/Weight/BMI Height: 6'1.00" Weight: 375lbs. oz. 170.565668ta; 54.00 BMI Method:Stated General Appearance: no apparent distress, obese HEENT: PERRL/EOMI, pharynx normal Neck: non-tender, full range of motion, supple, normal inspection Respiratory: chest non-tender, lungs clear, normal breath sounds, no respiratory distress, no accessory muscle use Cardiovascular: normal peripheral pulses, regular rate, rhythm Gastrointestinal: normal bowel sounds, soft, no pulsatile mass, tenderness (tender to palpation bilateral cva, worse on left side, and pain wraps around both flanks) Rectal: deferred Extremities: normal range of motion, non-tender, normal capillary refill Back: CVA tenderness (R), CVA tenderness (L) Neurologic/Psychiatric: alert, oriented x 3 Skin: normal color, warm/dry Progress/Results/Core Measures Results/Orders Lab Results Laboratory Tests Test 01/12/23 10:01 01/12/23 10:10 Range/Units Urine Color DARK YELLOW Urine Clarity CLEAR Urine pH 6.5 5-9 Urine Specific [place] 1.020 1.016-1.022 Urine Protein 1+ H NEGATIVE Urine Glucose (UA) NEGATIVE NEGATIVE Urine Ketones TRACE H NEGATIVE Urine Nitrite NEGATIVE NEGATIVE Urine Bilirubin 1+ H NEGATIVE Urine Urobilinogen 0.2 < = 1.0 MG/DL Urine Leukocyte Esterase NEGATIVE NEGATIVE Urine RBC (Auto) NEGATIVE NEGATIVE Urine RBC NONE /HPF Urine WBC 10-25 H /HPF Urine Squamous Epithelial Cells 10-25 H /HPF Urine Crystals NONE /LPF Urine Bacteria MODERATE H /HPF Urine Casts NONE /LPF Urine Mucus LARGE H /LPF Urine Culture Indicated YES White Blood Count 9.8 4.3-11.0 10^3/uL Red Blood Count 5.47 4.30-5.52 10^6/uL Hemoglobin 16.2 13.3-17.7 g/dL Hematocrit 47 40-54 % Mean Corpuscular Volume 86 80-99 fL Mean Corpuscular Hemoglobin 30 25-34 pg Mean Corpuscular Hemoglobin Concent 34 32-36 g/dL Red Cell Distribution Width 13.0 10.0-14.5 % Platelet Count 227 130-400 10^3/uL Mean Platelet Volume 11.1 9.0-12.2 fL Immature Granulocyte % (Auto) 0 % Neutrophils (%) (Auto) 56 42-75 % Lymphocytes (%) (Auto) 23 12-44 % Monocytes (%) (Auto) 7 0-12 % Eosinophils (%) (Auto) 14 H 0-10 % Basophils (%) (Auto) 1 0-10 % Neutrophils # (Auto) 5.5 1.8-7.8 10^3/uL Lymphocytes # (Auto) 2.3 1.0-4.0 10^3/uL Monocytes # (Auto) 0.7 0.0-1.0 10^3/uL Eosinophils # (Auto) 1.4 H 0.0-0.3 10^3/uL Basophils # (Auto) 0.1 0.0-0.1 10^3/uL Immature Granulocyte # (Auto) 0.0 0.0-0.1 10^3/uL Sodium Level 138 135-145 MMOL/L Potassium Level 3.8 3.6-5.0 MMOL/L Chloride Level 101 98-107 MMOL/L Carbon Dioxide Level 25 21-32 MMOL/L Anion Gap 12 5-14 MMOL/L Blood Urea Nitrogen 24 H 7-18 MG/DL Creatinine 1.09 0.60-1.30 MG/DL Estimat Glomerular Filtration Rate 91 BUN/Creatinine Ratio 22 Glucose Level 111 H 70-105 MG/DL Calcium Level 9.7 8.5-10.1 MG/DL Corrected Calcium 9.4 8.5-10.1 MG/DL Total Bilirubin 0.6 0.1-1.0 MG/DL Aspartate Amino Transf (AST/SGOT) 25 5-34 U/L Alanine Aminotransferase (ALT/SGPT) 40 0-55 U/L Alkaline Phosphatase 56 40-136 U/L Total Protein 7.3 6.4-8.2 GM/DL Albumin 4.4 3.2-4.5 GM/DL Lipase 30 8-78 U/L My Orders Orders - NASIM MILLER MD Comprehensive Metabolic Panel (01/12/23 09:56) Lipase (01/12/23 09:56) Ua Culture If Indicated (01/12/23 09:56) Ed Iv/Invasive Line Start (01/12/23 09:56) Cbc With Automated Diff (01/12/23 09:56) Ct Abdomen/Pelvis Wo (01/12/23 09:56) Urine Culture (01/12/23 10:01) Vital Signs/I&O 01/12/23 01/12/23 10:05 11:34 Temp 36.5 Pulse 94 88 Resp 16 18 B/P (MAP) 183/96 (125) 182/94 Pulse Ox 98 96 O2 Delivery Room Air Room Air Progress Progress Note #1: Progress Note Potential diagnosis of UTI, kidney stone, colitis, diverticulitis, musculoskeletal strain, sciatica, low back pain. Obtain basic labs of complete blood count, comprehensive metabolic profile, urinalysis, lipase. CT scan of the abdomen and pelvis without IV contrast to look for signs of kidney stones or intra-abdominal pathology for his chronic issue that has worsened in the last 3 to 4 days. As he states his pain is currently 3 out of 10 and he declined needing anything for medication right now to help with pain. Progress Note #2: Progress Note Complete blood count does not show an elevated white blood cell count or low hemoglobin for anemia. The comprehensive metabolic profile did not show acute significant abnormality to account for his bilateral flank pain. His urinalysis was showing leukocyte Estrace with bacteria and white blood cells so we will treat for urinary tract infection. The CT scan of the abdomen and pelvis without IV contrast on my interpretation showed a approximately 5 mm kidney stone within the right upper part of the kidney but I did not appreciate any ureteral stones. No acute pathology in either flank to account for his bilateral flank pain. Awaiting radiology over read for determining disposition. Progress Note #3: Time: 11:20 Progress Note Reviewed the radiologist report at 11:20 AM. They saw the 5 mm stone that was stable in the right upper pole of the kidney. There is no ureteral stones or acute pathology to account for his bilateral flank pain. Reviewed results with the patient and counseled him to stay well-hydrated and take full course of antibiotics. Check back with primary care provider for continued concerns. Since he reports that he was having some pain into the upper part of his legs if there is continued concern for sciatica or spinal issue then his primary care clinic may need to set him up to have an MRI. May continue to take acetaminophen to help with flank pain. He could take ibuprofen if he liked as well. Diagnostic Imaging Diagonstic Imaging: CT Plain Films/CT/US/NM/MRI: abdomen, pelvis Comments [facility], [place] NAME: SAUMYA VALENTINE [facility] REC#: [id number] PT STATUS: REG ER : 1985 PHYSICIAN: NASIM MILLER MD ADMIT DATE: 01/12/23/ER FS Draft Date of Exam:01/12/23 CT ABDOMEN/PELVIS WO PROCEDURE: CT abdomen and pelvis without contrast. TECHNIQUE: Multiple contiguous axial images were obtained through the abdomen and pelvis without the use of intravenous contrast. Auto Exposure Controls were utilized during the CT exam to meet ALARA standards for radiation dose reduction. INDICATION: Bilateral flank pain for 2 days. COMPARISON is made with prior CT 03/19/2022. FINDINGS: The lung bases are clear. The liver and gallbladder are unremarkable. There is no biliary ductal dilatation. The pancreas and spleen are unremarkable. No adrenal mass is detected. There is a nonobstructing calculus in the upper pole of the right kidney measuring 5 mm. No ureteral calculi or hydronephrosis is identified. The aorta is nonaneurysmal. Bowel loops are normal caliber. There is no obstruction. No inflammatory changes are seen. No free fluid or fluid collection in the abdomen or pelvis is identified. Bladder is decompressed. Prostate is unremarkable. Bony structures are nonacute. IMPRESSION: Nonobstructing right-sided nephrolithiasis. No definite ureteral calculi or hydronephrosis is identified. No acute feature is identified. Dictated on workstation # [id number] Dict: 01/12/23 1041 Trans: 01/12/23 1049 [facility] [id number] Interpreted by: HUONG STONER MD Electronically signed by: Reviewed: Reviewed by Me Departure Impression Primary Impression: Bilateral flank pain Additional Impression: Acute cystitis without hematuria Disposition: 01 HOME, SELF-CARE Condition: Stable Departure-Patient Inst. Decision time for Depature: 11:23 Referrals: ISRA VALLE MD (PCP) Primary Care Physician Patient Instructions: Flank Pain ED, Urinary Tract Infection, Adult ED, Nausea and Vomiting, Adult ED Add. Discharge Instructions: Stay well hydrated and drink plenty of water to help flush out your kidneys and help clear the infection. May take the nausea medicine if needed to help keep your stomach settled. Take the full course of antibiotics to treat for Urinary tract infection and flank pain. Check back with clinic if continued symptoms or not improving. May continue with acetaminophen for pain All discharge instructions reviewed with patient and/or family. Voiced understanding. Scripts Ondansetron (Ondansetron Odt) 4 Mg Tab.rapdis 4 MG PO Q6H PRN for NAUSEA/VOMITING for 3 Days, #12 TAB 0 Refills Prov: ENYART,NASIM E MD 01/12/23 Ciprofloxacin HCl (Ciprofloxacin HCl) 500 Mg Tablet 500 MG PO BID for UTI/Flank pain for 7 Days, #14 TAB 0 Refills Prov: NASIM MILLER MD 01/12/23 NASIM MILLER MD Jan 12, 2023 10:15
[2023-01-12 10:25] LABS: BASOPHILS # (AUTO) 0.1 10^3/uL (0.0-0.1); BASOPHILS % (AUTO) 1 % (0-10); EOSINOPHILS # (AUTO) 1.4 10^3/uL (0.0-0.3); EOSINOPHILS % (AUTO) 14 % (0-10); HEMATOCRIT 47 % (40-54); HEMOGLOBIN 16.2 g/dL (13.3-17.7); LYMPHOCYTES # (AUTO) 2.3 10^3/uL (1.0-4.0); LYMPHOCYTES % (AUTO) 23 % (12-44); MEAN CORPUSCULAR HEMOGLOBIN 30 pg (25-34); MEAN CORPUSCULAR HGB CONC 34 g/dL (32-36); MEAN CORPUSCULAR VOLUME 86 fL (80-99); MEAN PLATELET VOLUME 11.1 fL (9.0-12.2); MONOCYTES # (AUTO) 0.7 10^3/uL (0.0-1.0); MONOCYTES % (AUTO) 7 % (0-12); NEUTROPHILS # (AUTO) 5.5 10^3/uL (1.8-7.8); NEUTROPHILS % (AUTO) 56 % (42-75); PLATELET COUNT 227 10^3/uL (130-400); WHITE BLOOD COUNT 9.8 10^3/uL (4.3-11.0)
[2023-01-12 10:44] LABS: POTASSIUM 3.8 MMOL/L (3.6-5.0)
[2023-01-12 10:45] LABS: ALBUMIN 4.4 GM/DL (3.2-4.5); BILIRUBIN,TOTAL 0.6 MG/DL (0.1-1.0); CALCIUM 9.7 MG/DL (8.5-10.1); CREATININE SERUM 1.09 MG/DL (0.60-1.30); TOTAL PROTEIN 7.3 GM/DL (6.4-8.2)
--- NOTE | 2023-01-12 10:50 | Diagnostic Imaging Report ---
PROCEDURE: CT abdomen and pelvis without contrast. TECHNIQUE: Multiple contiguous axial images were obtained through the abdomen and pelvis without the use of intravenous contrast. Auto Exposure Controls were utilized during the CT exam to meet ALARA standards for radiation dose reduction. INDICATION: Bilateral flank pain for 2 days. COMPARISON is made with prior CT 03/19/2022. FINDINGS: The lung bases are clear. The liver and gallbladder are unremarkable. There is no biliary ductal dilatation. The pancreas and spleen are unremarkable. No adrenal mass is detected. There is a nonobstructing calculus in the upper pole of the right kidney measuring 5 mm. No ureteral calculi or hydronephrosis is identified. The aorta is nonaneurysmal. Bowel loops are normal caliber. There is no obstruction. No inflammatory changes are seen. No free fluid or fluid collection in the abdomen or pelvis is identified. Bladder is decompressed. Prostate is unremarkable. Bony structures are nonacute. IMPRESSION: Nonobstructing right-sided nephrolithiasis. No definite ureteral calculi or hydronephrosis is identified. No acute feature is identified. Dictated by: Dictated on workstation # [id number]
[2023-01-12] MEDS ORDERED: ONDA4TAB11 PO (11:28)
[2023-01-12] MEDS ORDERED: CIPR500T5 PO (11:28)
[2023-01-12 11:34] VITALS: BP 182/94
== END 2023-01-12 11:35 | disposition home or self-care (01) ==
LOC: EDUNIT# 09:52 → ER FS 09:54
DX: N30.00 Acute cystitis without hematuria (principal); N20.0 Calculus of kidney; E66.01 Morbid (severe) obesity due to excess calories; Z68.43 Body mass index [BMI] 50.0-59.9, adult; F17.290 Nicotine dependence, other tobacco product, uncomplicated; Z88.0 Allergy status to penicillin; Z28.310 Unvaccinated for COVID-19
CPT/HCPCS: 36415; 74176; 80053; 81000; 83690; 85025; 87088

== ENCOUNTER 2023-03-14 09:43 | Emergency (ER) | payer MEDICARE, MEDICAID ==
[~2023-03-14 09:43] MED LIST changes: +CIPR500T5 PO
[2023-03-14] MEDS ORDERED: meTOprolol 5 MG/5 ML (LOPRESSOR) VIAL IV STA (10:01)
[2023-03-14] MEDS ORDERED: ASPIRIN 81 MG CHEW (CHILDREN'S ASA) PO STA (10:01)
[2023-03-14 10:05] LABS: BASOPHILS # (AUTO) 0.1 10^3/uL (0.0-0.1); BASOPHILS % (AUTO) 1 % (0-10); EOSINOPHILS # (AUTO) 1.6 10^3/uL (0.0-0.3); EOSINOPHILS % (AUTO) 15 % (0-10); HEMATOCRIT 46 % (40-54); HEMOGLOBIN 15.9 g/dL (13.3-17.7); LYMPHOCYTES # (AUTO) 3.1 10^3/uL (1.0-4.0); LYMPHOCYTES % (AUTO) 29 % (12-44); MEAN CORPUSCULAR HEMOGLOBIN 30 pg (25-34); MEAN CORPUSCULAR HGB CONC 34 g/dL (32-36); MEAN CORPUSCULAR VOLUME 86 fL (80-99); MEAN PLATELET VOLUME 11.2 fL (9.0-12.2); MONOCYTES # (AUTO) 0.8 10^3/uL (0.0-1.0); MONOCYTES % (AUTO) 7 % (0-12); NEUTROPHILS # (AUTO) 5.1 10^3/uL (1.8-7.8); NEUTROPHILS % (AUTO) 48 % (42-75); PLATELET COUNT 226 10^3/uL (130-400); WHITE BLOOD COUNT 10.6 10^3/uL (4.3-11.0)
--- NOTE | 2023-03-14 10:12 | ED Chest Pain ---
General Chief Complaint: Chest Pain Stated Complaint: CHEST PAIN; SOB Source: patient, old records History of Present Illness Date Seen by Provider: March 14, 2023 Time Seen by Provider: 09:46 Initial Comments 37 yo Male presenting with complaint of chest tightness and "buzzing sensation" in chest, abdomen and behind eyes. He reports waking up a little before 9 am and had this present. 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 He denied taking any medicine or doing anything at home for the chest pain. He has had multiple evaluations for chest and abdomen pain and sometime been told it was blood pressure and sometimes anxiety. He has had some nausea with this as well but no vomiting. No fever, chills, headache, abdominal pain. He has some shortness of breath. He rates pain 6 out of 10 and reports it is widespread but not specifically radiating to one area or another. Timing/Duration: 1 hour Severity/Quality: moderate, tightness, other (buzzing) Location: central Radiation: no radiation Activities at Onset: sleep Prior CP/Workup: non-cardiac ASA po LINE SERVICER: No NTG SL LINE SERVICER: No Associated Symptoms: No abdominal pain, No back pain; diaphoresis; No dizziness, No edema, No fatigue, No fever/chills, No headache, No heartburn; nausea/vomiting (nausea but no emesis); No rash; shortness of breath; No swelling/lump in chest, No syncope Allergies and Home Medications Allergies Coded Allergies: amoxicillin (Verified Allergy, Unknown, 02/16/21) Patient Home Medication List Home Medication List Reviewed: Yes Aspirin (Aspirin EC) 81 Mg Tablet.dr, 81 MG PO DAILY Prescribed by: KASIE HARRIS on 06/27/21 1002 Cefdinir (Cefdinir) 300 Mg Capsule, 300 MG PO BID Prescribed by: NASIM MILLER on 07/18/22 0243 Cefdinir (Cefdinir) 300 Mg Capsule, 300 MG PO BID Prescribed by: LORE HOWE on 11/15/22 1632 Ciprofloxacin HCl (Ciprofloxacin HCl) 500 Mg Tablet, 500 MG PO BID Prescribed by: NASIM MILLER on 01/12/23 1128 Dicyclomine HCl (Dicyclomine HCl) 20 Mg Tablet, 20 MG PO QID PRN for abdominal pain/nausea Prescribed by: NASIM MILLER on 5/24/22 2223 Famotidine (Pepcid) 20 Mg Tablet, 20 MG PO BID Prescribed by: KASIE HARRIS on 06/27/21 1002 Hydroxyzine Pamoate (Vistaril) 50 Mg Capsule, 50 MG PO Q6H PRN for AGITATION Prescribed by: ABRAHAM BARBER on 02/19/20 1034 Lisinopril/Hydrochlorothiazide (Lisinopril-Hctz 10-12.5 mg Tab) 1 Each Tablet, 1 EACH PO DAILY Prescribed by: ABRAHAM BARBER on 02/19/20 1034 Metoprolol Succinate (Metoprolol Succinate) 50 Mg Tab.er.24h, 50 MG PO DAILY Prescribed by: KASIE CASTANEDASTRAND on 02/16/21 220 Metoprolol Succinate (Metoprolol Succinate) 25 Mg Tab.er.24h, 25 MG PO DAILY Prescribed by: NASIM BRYANYART on 03/24/22 1836 Ondansetron (Ondansetron Odt) 4 Mg Tab.rapdis, 4 MG PO Q6H PRN for NAUSEA/VOMITING Prescribed by: NASIM BRYANYART on 07/07/212049 Ondansetron (Ondansetron Odt) 4 Mg Tab.rapdis, 4 MG PO Q8H Prescribed by: GUANAKO ALONSO on 02/10/22 0058 Ondansetron (Ondansetron Odt) 4 Mg Tab.rapdis, 4 MG PO Q6H PRN for NAUSEA/VOMITING Prescribed by: NASIM Avalos ENYART on 07/18/22 0243 Ondansetron (Ondansetron Odt) 4 Mg Tab.rapdis, 4 MG PO Q6H PRN for NAUSEA/VOMITING Prescribed by: NASIM BRYANYART on 01/12/23 1128 Pantoprazole Sodium (Pantoprazole Sodium) 40 Mg Tablet.dr, 40 MG PO DAILY Prescribed by: NASIM BRYANYART on 07/07/212049 Review of Systems Review of Systems Constitutional: No chills; diaphoresis; No fever EENTM: No Symptoms Reported Respiratory: See HPI Cardiovascular: See HPI Gastrointestinal: See HPI Genitourinary: No Symptoms Reported Musculoskeletal: no symptoms reported Skin: no symptoms reported Psychiatric/Neurological: Anxiety Endocrine: No Symptoms Reported Past Vyajpbf-Wmdvwj-Ekkszg Hx Patient Social History Tobacco Use?: No Smoking Status: Former Smoker Substance use?: Yes Substance type: Marijuana Substance frequency: Once in a while Alcohol Use?: No Pt feels they are or have been: No Immunizations Up To Date First/Initial COVID19 Vaccinat: denies Second COVID19 Vaccination Dwaine: denies Third COVID19 Vaccination Date: denies Seasonal Allergies Seasonal Allergies: No Past Medical History Surgery/Hospitalization HX: HTN, Morbid Obesity, Anxiety Surgeries: Yes Tonsillectomy Respiratory: No Cardiac: Yes Hypertension Neurological: No Genitourinary: No Gastrointestinal: No Musculoskeletal: Yes Scoliosis Endocrine: No HEENT: No Cancer: No Psychosocial: Yes Anxiety Integumentary: No Blood Disorders: No Physical Exam Vital Signs Vital Signs - First Documented 03/14/23 09:47 Temp 35.9 Pulse 100 Resp 13 B/P (MAP) 157/111 (126) Pulse Ox 96 O2 Delivery Room Air Capillary Refill : Less Than 3 Seconds Height, Weight, BMI Height: 6'1.00" Weight: 375lbs. oz. 170.661654km; 58.00 BMI Method:Stated General Appearance: No Apparent Distress, WD/WN, Obese HEENT: PERRL/EOMI, Pharynx Normal Neck: Full Range of Motion, Normal Inspection, Non Tender, Supple Respiratory: Chest Non Tender, Lungs Clear, Normal Breath Sounds, No Accessory Muscle Use, No Respiratory Distress Cardiovascular: Regular Rate, Rhythm, Normal Peripheral Pulses Gastrointestinal: Normal Bowel Sounds, No Pulsatile Mass, Non Tender, Soft Extremity: Normal Capillary Refill, Normal Inspection, No Pedal Edema Neurologic/Psychiatric: Alert, Oriented x3, spanner operator II-XII Norm as Tested Skin: Normal Color, Warm/Dry Critical Care Note Critical Care Total Time (minutes) 30 minutes Progress I spent at least 30 minutes of critical care time with the patient. Time excludes separately billable procedures. Patient was at risk of having cardiovascular compromise and cardiac event. Time spent obtaining history from the patient and medical record, ordering test and reviewing results, ordering interventions and reviewing response, documentation in the chart, discussion with patient. With his complaint of chest pain and potential diagnosis of myocardial infarction or ACS he required my direct and immediate intervention and monitoring to stabilize his condition and watch for decline in his condition. Progress/Results/Core Measures Results/Orders Lab Results Laboratory Tests Test 03/14/23 10:00 Range/Units White Blood Count 10.6 4.3-11.0 10^3/uL Red Blood Count 5.39 4.30-5.52 10^6/uL Hemoglobin 15.9 13.3-17.7 g/dL Hematocrit 46 40-54 % Mean Corpuscular Volume 86 80-99 fL Mean Corpuscular Hemoglobin 30 25-34 pg Mean Corpuscular Hemoglobin Concent 34 32-36 g/dL Red Cell Distribution Width 12.9 10.0-14.5 % Platelet Count 226 130-400 10^3/uL Mean Platelet Volume 11.2 9.0-12.2 fL Immature Granulocyte % (Auto) 0 % Neutrophils (%) (Auto) 48 42-75 % Lymphocytes (%) (Auto) 29 12-44 % Monocytes (%) (Auto) 7 0-12 % Eosinophils (%) (Auto) 15 H 0-10 % Basophils (%) (Auto) 1 0-10 % Neutrophils # (Auto) 5.1 1.8-7.8 10^3/uL Lymphocytes # (Auto) 3.1 1.0-4.0 10^3/uL Monocytes # (Auto) 0.8 0.0-1.0 10^3/uL Eosinophils # (Auto) 1.6 H 0.0-0.3 10^3/uL Basophils # (Auto) 0.1 0.0-0.1 10^3/uL Immature Granulocyte # (Auto) 0.0 0.0-0.1 10^3/uL Neutrophils % (Manual) 47 % Lymphocytes % (Manual) 29 % Monocytes % (Manual) 4 % Eosinophils % (Manual) 19 % Basophils % (Manual) 0 % Band Neutrophils 1 % Prothrombin Time 12.8 12.2-14.7 SEC INR Comment 0.9 0.8-1.4 Activated Partial Thromboplast Time 32 24-35 SEC Sodium Level 137 135-145 MMOL/L Potassium Level 3.5 L 3.6-5.0 MMOL/L Chloride Level 103 98-107 MMOL/L Carbon Dioxide Level 22 21-32 MMOL/L Anion Gap 12 5-14 MMOL/L Blood Urea Nitrogen 22 H 7-18 MG/DL Creatinine 0.92 0.60-1.30 MG/DL Estimat Glomerular Filtration Rate 111 BUN/Creatinine Ratio 24 Glucose Level 123 H 70-105 MG/DL Calcium Level 9.3 8.5-10.1 MG/DL Corrected Calcium 9.3 8.5-10.1 MG/DL Magnesium Level 1.8 1.6-2.4 MG/DL Total Bilirubin 0.7 0.1-1.0 MG/DL Aspartate Amino Transf (AST/SGOT) 17 5-34 U/L Alanine Aminotransferase (ALT/SGPT) 31 0-55 U/L Alkaline Phosphatase 58 40-136 U/L Troponin I < 0.30 <0.30 NG/ML Pro-B-Type Natriuretic Peptide < 36.0 <125.0 PG/ML Total Protein 6.7 6.4-8.2 GM/DL Albumin 4.0 3.2-4.5 GM/DL Lipase 22 8-78 U/L My Orders Orders - NASIM MILLER MD Cbc With Automated Diff (03/14/23 09:46) Magnesium (03/14/23 09:46) Ekg Tracing (03/14/23 09:46) Comprehensive Metabolic Panel (03/14/23 09:46) Protime With Inr (03/14/23 09:46) Partial Thromboplastin Time (03/14/23 09:46) O2 (03/14/23 09:46) Monitor-Rhythm Ecg Trace Only (03/14/23 09:46) Ed Iv/Invasive Line Start (03/14/23 09:46) Lipase (03/14/23 09:46) Troponin I Fs (03/14/23 09:46) Probnp Fs (03/14/23 09:46) Aspirin Chewable Tablet (Baby Aspirin Ch (03/14/23 10:01) Metoprolol Tartrate Injection (Lopressor (03/14/23 10:01) Chest 1 View Ap/Pa Only (03/14/23 10:03) Manual Differential (03/14/23 10:00) Ondansetron Injection (Zofran Injectio (03/14/23 11:09) Vital Signs/I&O 03/14/23 03/14/23 09:47 11:31 Temp 35.9 35.9 Pulse 100 89 Resp 13 16 B/P (MAP) 157/111 (126) 130/91 Pulse Ox 96 97 O2 Delivery Room Air Room Air Progress Progress Note #1: Progress Note Potential life threatening diagnosis of myocardial infarction, unstable angina, anxiety, pneumonia, hypertensive crisis. Establish peripheral IV access and send labs for complete blood count, comprehensive metabolic profile, Troponin, proBNP, magnesium, lipase, coagulation factors. Chest xray to look for pathology in chest. Cardiac awake overnight monitor for watching heart rate and rhythm. Initially my interpretation of his awake overnight monitor shows sinus rhythm with rate in the 90s without ectopy or ST elevation. ECG shows q waves in inferior leads similar to tracing from 07/18/2022. Administer aspirin 324 mg po and Metoprolol 5 mg IV x 1 as his initial blood pressure was 157/115. Progress Note #2: Time: 10:16 Progress Note Complete blood count without acute elevation of WBC or low hemoglobin for anemia. Hgb 15.9. On my personal interpretation and review of 1 view Chest xray he has no acute infiltrate or effusion. 1024 I reviewed radiologist report on 1 view CXR and they did not see any acute process either. Progress Note #3: Time: 11:18 Progress Note Comprehensive metabolic profile did not demonstrate any acute significant electrolyte imbalance. His troponin was less than 0.3. His chest pain had resolved with treatment for his blood pressure and his blood pressure did come down with the dose of metoprolol. I updated patient about findings and results. Since his symptoms had resolved that his blood pressure came down this may still be related to his elevated blood pressure on arrival. Encourage patient to follow-up through the clinic and continue on his regular medications. He might require repeat stress test or further evaluation with the clinic. Encouraged to take medications as prescribed. Although he did get a single dose of metoprolol IV here encouraged to take his regular medicine after he got home to keep his blood pressure under good control. When discussing results with the patient his blood pressure was down to 124/71. Initial ECG Impression Date: March 14, 2023 Initial ECG Impression Time: 09:49 Initial ECG Rate: 101 Initial ECG Rhythm: Normal Sinus Initial ECG Comparisson: Unchanged (07/18/2022) Comment On my personal interpretation and review his electrocardiogram showed sinus rhythm with a heart rate of 101 bpm. NH interval [address] elevat ion. He did have some Q waves in the inferior leads. QT interval 321 ms with a QTc interval 379 ms. Appears similar to prior tracing from July 18, 2022. Diagnostic Imaging Diagonstic Imaging: Xray Plain Films/CT/US/NM/MRI: chest Comments NAME: SAUMYA VALENTINE [facility] REC#: [id number] PT STATUS: REG ER : 1985 PHYSICIAN: NASIM MILLER MD ADMIT DATE: 03/14/23/ER FS Signed Date of Exam:03/14/23 CHEST 1 VIEW AP/PA ONLY Indication: Shortness of breath Portable chest 10:09 AM Heart size and pulmonary vascularity are normal. Lungs are clear. There are no effusions or pneumothoraces. IMPRESSION: No acute abnormalities in the chest Dictated by: Dictated on workstation # [id number] Dict: 03/14/23 1020 Trans: 03/14/23 1020 TCB [id number] Interpreted by: UZMA MOSELEY MD Electronically signed by: UZMA MOSELEY MD 03/14/23 1020 Reviewed: Reviewed by Me (I reviewed radiologist report at 1024 am) Departure Impression Primary Impression: Atypical chest pain Additional Impression: Elevated blood pressure reading with diagnosis of hypertension Disposition: HOME, SELF-CARE Condition: Improved Departure-Patient Inst. Decision time for Depature: 11:29 Referrals: ISRA VALLE MD (PCP/Family) Primary Care Physician Patient Instructions: Chest Pain, Adult ED, High Blood Pressure ED, DASH Diet Add. Discharge Instructions: Your test this morning all looked good without signs of heart attack or acute heart damage. Check back with clinic about continued concerns for chest pain. Stay well-hydrated and continue on your regular home medications. All discharge instructions reviewed with patient and/or family. Voiced understanding. NASIM MILLER MD March 14, 2023 10:12
--- NOTE | 2023-03-14 10:21 | Diagnostic Imaging Report ---
Indication: Shortness of breath Portable chest 10:09 AM Heart size and pulmonary vascularity are normal. Lungs are clear. There are no effusions or pneumothoraces. IMPRESSION: No acute abnormalities in the chest Dictated by: Dictated on workstation # [id number]
[2023-03-14 10:31] LABS: INR 0.9 (0.8-1.4); PROTHROMBIN TIME PATIENT 12.8 SEC (12.2-14.7)
[2023-03-14 10:36] LABS: ALANINE AMINOTRANSFERASE 31 U/L (0-55); ALKALINE PHOSPHATASE 58 U/L (40-136); BILIRUBIN,TOTAL 0.7 MG/DL (0.1-1.0); BUN/CREATININE RATIO 24; CALCIUM 9.3 MG/DL (8.5-10.1); CARBON DIOXIDE 22 MMOL/L (21-32); CHLORIDE 103 MMOL/L (98-107); CREATININE SERUM 0.92 MG/DL (0.60-1.30); GFR ESTIMATED 111; GLUCOSE 123 MG/DL (70-105); MAGNESIUM 1.8 MG/DL (1.6-2.4); POTASSIUM 3.5 MMOL/L (3.6-5.0); SODIUM 137 MMOL/L (135-145)
[2023-03-14 10:37] LABS: LIPASE 22 U/L (8-78); TOTAL PROTEIN 6.7 GM/DL (6.4-8.2)
[2023-03-14 10:46] LABS: BAND NEUTROPHILS 1 %; BASOPHILS % (MANUAL) 0 %; EOSINOPHILS % (MANUAL) 19 %; LYMPHOCYTES % (MANUAL) 29 %; MONOCYTES % (MANUAL) 4 %; NEUTROPHILS % (MANUAL) 47 %
[2023-03-14] MEDS ORDERED: ONDANSETRON 4 MG/2 ML (SDV) Z0FRAN IVP STA (11:09)
[2023-03-14 11:31] VITALS: BP 130/91
== END 2023-03-14 11:31 | disposition home or self-care (01) ==
LOC: EDUNIT# 09:43 → ER FS 09:44
DX: I10 Essential (primary) hypertension (principal); E66.01 Morbid (severe) obesity due to excess calories; Z68.43 Body mass index [BMI] 50.0-59.9, adult; Z87.891 Personal history of nicotine dependence; Z28.310 Unvaccinated for COVID-19
CPT/HCPCS: 36415; 71045; 80053; 83690; 83735; 83880; 84484; 85007; 85027; 85610; 85730; 93005; 93041